=== PATIENT | female | born 1995 | race Caucasian/White ===

== ENCOUNTER 2024-01-16 03:45 | Inpatient (IN) ==
--- NOTE | 2024-01-16 04:01 | History & Physical Report ---
Date of Service January 16, 2024 Assessment & Plan (1) Delayed delivery after SROM (spontaneous rupture of membranes): Present on Admission?: Yes (2) Normal labor: Present on Admission?: Yes (3) LGA (large for gestational age) fetus affecting mother, antepartum: Present on Admission?: Yes Plan Admit to L and D Regular diet x 2 then NPO/IV Fluids labs pain meds including epidural as the pt desires Pitocin as needed to augment labor Admission and Anticipated Discharge Date Admission Date: January 16, 2024 History of Present Illness Chief Complaint: pt 28 yr old IUP at 38 weeks 6 days came in c/o leaking of fluid per vagina and uterine contractions. Denies vaginal bleeding . Reports good movement . Primary Care Provider: NO PCP Past Med/Surg History Problem List (Updated 01/16/24 @ 03:59 by Crystal Jacobs MD) LGA (large for gestational age) fetus affecting mother, antepartum Normal labor Delayed delivery after SROM (spontaneous rupture of membranes) Review of Systems Review of Systems: All systems reviewed & are unremarkable except as noted in HPI & below Constitutional: as per Subjective / HPI Respiratory: as per Subjective / HPI Cardiovascular: as per Subjective / HPI Gastrointestinal: as per Subjective / HPI Physical Exam Constitutional: WD/WN, vitals as above Respiratory: normal respiratory effort, lungs clear to auscultation Cardiovascular: RRR, no murmur, no edema Gastrointestinal (Abdomen): normal bowel sounds, soft, nontender, no hepatosplenomegaly Genitourinary: no vaginal lesions, no adnexal mass OB Exam Abdomen: + fundal height (41), + heart tones (140s, Good variability, positive accelerations ) and + vertex Manual OB Exam: + cervical dilation 2 cm, + cervical effacement 80%, + station -1 and + amniotic fluid clear OB Exam Monitor Tracing: + external FHT monitor used and + category I
--- OUTSIDE RECORDS SUMMARY | 2024-01-16 04:19 | External Medical Summary | Summary of Care ---
Author Name Unknown Organization [facility] Address [address] [place] [address] Phone [phone] Care Team Providers Care First Officer Name Role Phone Austin Margo Shari KELLEY Primary Care Provider [phone] Reason for Visit * Reason Comments Return Visit Encounter Details Date Type Department Care Team (Late st Contact Info) Description 01/05/2024 7:45 AM EDT Office Visit Gynecology/Obstetric s [facility] [address] [place] [id number] Twila Mclean PA-C [address] [place] [phone] Supervision of normal first , antepartum*; Antepartum anemia complicating ; Diet controlled gestational diabetes mellitus (GDM) in third trimester; Excessive growth affecting management of in third trimester, single or unspecified fetus Allergies No known active allergiesdocumented as of this encounter (statuses as of 01/05/2024) Medications Medication Sig Dispensed Refills Start Date End Date Status ZyrTEC Allergy 10 MG Oral Capsule (Cetirizine HCl) Take 1 Capsule by mouth in the morning. Active 28-0.8 MG Oral Tablet Take by mouth. Active Omeprazole Magnesium 20 MG Oral Tablet Delayed Release (PriLOSEC OTC) Take 1 Tablet by mouth in the morning. Active Promethazine HCl 25 MG Oral Tablet (Phenergan)Indicati ons:Encounter for supervision of normal first in first trimester,Vomiting of Take 1 Tablet by mouth every 6 hours as needed for Nausea. 30 Tablet 1 06/17/2023 Active Additional Information Patient not taking.Reported on 10/13/2023 B-12 1000 MCG Oral Tablet Take by mouth. Active SkillBoostTouch Verio Flex System w/Device Kit Use to test blood sugars 4 times daily (fasting, 1 hour after breakfast, lunch, and dinner) 1 Kit 11/07/2023 Active OneTouch Verio In Vitro Strip (Glucose Blood) Use to test blood sugars 4 times daily (fasting, 1 hour after breakfast, lunch, and dinner) 125 Strip 6 11/07/2023 Active SkillBoostTouch Delica Lancets 30G Use to test blood sugars 4 times daily (fasting, 1 hour after breakfast, lunch, and dinner) 200 Each 6 11/07/2023 Active documented as of this encounter (statuses as of 01/05/2024) Active Problems Problem Noted Date Diagnosed Date 36 weeks gestation of 01/01/2024 Excessive growth affec ting management of in third trimester 11/25/2023 Overview: Large AC noted at 99% with overall EFW of 2200 g at 91%. - 31 weeks Last Assessment & Plan: EFW projected to be ~4500g at [facility]. CONSIDERATIONS: Reviewed that weight greater than 90%ile is considered "large for gestational age" (LGA). Discussed associated risks (e.g., difficult labor progress or delivery, hemorrhage, shoulder dystocia). LGA may be related to constitutional factors (e.g., male gender, ethnicity), environmental factors (maternal diabetes/obesity/weight gain), or genetic conditions. Discussed the limitations of ultrasound in predicting weight, especially at later gestational ages. For a fetus estimated as greater than 4500 gm, this error may be as high as 33-44%. RECOMMENDATIONS: Recommend delivery without trial of labor for estimated weight greater than 5000 gm (in the non-diabetic woman) OR greater than 4500 gm (in the diabetic woman). Concern for macrosomia/LGA is NOT an indication for induction of labor per ACOG, however, the results of the ARRIVE trial have suggested it may be beneficial. The patient should discuss further management and delivery plan with her primary OB provider. Could consider IOL at 39 weeks. Iron deficiency anemia 11/11/2023 Diet controlled gestational diabetes mellitus (GDM) in third trimester 11/07/2023 Overview: Gestational diabetes diagnosed at 29 weeks by abnormal 3 hour GTT. Nutrition consult scheduled 11/17. Lab Results Component Value Date/Time 50-G GESTATIONAL GLUCOSE, 1 HOUR - [facility] 155 (H) 11/03/2023 10:08 AM 100-G GESTATIONAL GLUCOSE, 1 HOUR - [facility] 188 (H) 11/07/2023 08:11 AM 100-G GESTATIONAL GLUCOSE, 2 HOUR - [facility] 179 (H) 11/07/2023 09:07 AM 100-G GESTATIONAL GLUCOSE, 3 HOUR - [facility] 169 (H) 11/07/2023 10:06 AM 100-G GESTATIONAL GLUCOSE, FASTING - [facility] 85 11/07/2023 07:06 AM She has not tested yet today (11/10). 11/11/23: MFM [facility]T consult complete. Enrolled in Current [facility]. Instructions provided to report blood sugars each week for MFM review. 11/18/2023-RPM-3 of 6 elevated post prandial dinner values. Advised to watch diet. Will review again next week, and if persists, will schedule for follow up [facility]T with maternal medicine nurse practitioner. 11/24/[id number]-AHK-vzmtmio blood sugars within normal limits. 2 of 6 elevated post prandial breakfast & lunch readings and 2 of 4 elevated post prandial dinner. Advised to watch diet and keep meal log to try and identify if dietary related. Will review again next week. 12/01/[id number]-hhczjka stable (rare elevations mostly due to dietary choices (wings, fries, cereal). 12/08/[id number]-ITE-dkenumx stable (< 50% elevated) 12/15/20231306-AUZ-oclcqhx stable (< 50% elevated) 12/22/23: RPM reviewed; Stable 12/29/23: RPM reviewed; Stable overall (rare PP elevation) Last Assessment & Plan: Working with AD[facility]T. Antepartum anemia complicating 024 Overview: Blood management referral placed Last Assessment & Plan: CONSIDERATIONS: Severe maternal anemia (hemoglobin levels below 6 to 7 g/dl) is associated with oligohydramnios, cerebral vasodilation, delivery, miscarriage, growth restriction, nonreassuring heart rate patterns, and stillbirth. There is also an increased risk for maternal . RECOMMENDATIONS: If hemoglobin is below 11 g/dl during first and third trimesters or less than10.5 g/dL in 2nd trimester, we recommend anemia studies to assess serum ferritin, iron, iron binding capacity, transferritin saturation, and hemoglobin electrophoresis. If iron-deficiency anemia is confirmed, then we recommend iron supplementation with oral (preferred) or parenteral therapy (if recommended by blood conservation program after oral therapy has failed) as indicated to keep hemoglobin level above 11 g/dl during . Oral iron should be taken with orange juice. If anemia studies do not reflect iron deficiency anemia we recommend checking TSH, B12 and folate levels and referral to a business services assistant. If hemoglobin levels are below 8 g/dl, we recommend Maternal Medicine ultrasound for growth every 4 weeks after 24 weeks. Consider a blood transfusion if hemoglobin levels fall below 6 g/dL. ([employer] Practice Bulletin Number 95, September,). Consider Venofer transfusions if patient labs supportive of iron deficiency anemia with dosing of 300 mg IV weekly x 3 weeks Supervision of normal first , antepartu m 06/17/2023 Last Assessment & Plan: Low risk NIPT appreciated. Candidiasis 03/30/2021 Anxiety disorder 03/30/2021 Hematuria 01/29/2013 Overview: ICD-10 update of inactive term Estimated Date of Delivery Comme nts Yes 01/23/2024 Based on last me nstrual period of 04/18/2023 (Exact Date) documented as of this encounter (statuses as of 01/05/2024) Immunizations Name Administration Dates Next Due COVID-19 mRNA, LNP-s, No Pre serve, 2-Dose Series (Primary Data) 07/28/2020,07/07/2020 DTaP Dipth/Tet/Acell Pertussis (Infanrix), Peds 07/21/2000,01/03/1997,01/05/1996,11/03,1995 HPV Vaccine, 4-Valent 2011,02/27/2011,12/15 Haemophilius B (HIB), unspecified 01/10/1997 Hepatitis A, Ped/Adol., 18 y ear and below, 2-Dose 06/23/2008,03/03/2007 Hepatitis B, 0-19 yrs 01/05/1996,1995,06/16 IPV - Polio Virus Vaccine (Inact) 07/21/2000 Influenza Vaccine, Live, Int ranasal, Trivalent (Flumist) 01/08/2013,12/24/2010,12/20/2009 MMR - Measles/Mumps/Rubella Vaccine 07/08/2006,0 10/09/1999 Meningococcal MCV4P Conjugat e Vaccine (Menactra) 01/08/2013,03/03/2007 OPV - Polio Virus Vaccine (Oral) 01/05/1996,10/16,1995 RSV Vac., Bivalent, Perfusio n F, Pf,0.5 Ml (Abrysvo) 12/08/2023 Seasonal Influenza Virus Vac cine, Unspecified Formulation 01/08/2013 TDAP (age 10 and older)(Boostrix) 11/07/2023 TDAP, Age 7 and older, IM (Adacel) 11/05/2006 Varicella Vaccine (Chicken Pox) 03/03/2007,07/08 documented as of this encounter Social History Tobacco Use Types Packs/Day Years Used Date Smoking Tobacco: Never Smokeless Tobacco: Never Alcohol Use Standard Drinks/Week Comments No 0 (1 standard drink = 0.6 oz pur e alcohol) Hunger Vital Sign Answer Date Recorded Within the past 12 months, y ou worried that your food would run out before you got the money to buy more. Never true 09/12/19 24 Within the past 12 months, t he food you bought just didn't last and you didn't have money to get more. Never true 09/12/2023 [place] Depression Scale Answer Date Recorded [place] Depression Scale Total 4 12/08/2023 The thought of harming myself has occurred to me . Never 12/08/2023 Childcare Answer Date Recorded Do you feel overwhelmed with taking care of a child, family member or friend? No 09/12/2023 Does your family need help f inding childcare? (Household - for ages 0-17 years) Not on file 09/12/2023 Clothing Answer Date Recorded Have you been unable to get clothing when it was really needed? No 09/12/2023 Is your family able to get c lothes or diapers when needed? (Household - for ages 0-17 years) Not on file 09/12/2023 Personal Safety Answer Date Recorded Do you feel unsafe or have concerns for your saf ety? No 09/12/2023 Do you have concerns for you r family's safety? (Household - for ages 0-17 years) Not on file 09/12/2023 Utilities Answer Date Recorded Do you have trouble paying y our heating, water, or electric bill? No 09/12/2023 Is your family able to pay t he heat, water, or electric bill? (Household - for ages 0-17 years) Not on file 09/12/2023 Does your family have access to good internet? (Household - for ages 0-17 years) Not on file 09/12/2023 Employment Status Answer Date Recorded Are you unemployed or without regular income? No 09/12/2023 Does the household have a re lar source of income? (Household - for ages 0-17 years) Not on file 09/12/2023 Social Connections Answer Date Recorded How often do you feel lonely or isolated from th ose around you? Rarely 09/12/2023 Financial Resource Strain Answer Date R ecorded Do you have any trouble payi ng for your medications, or do you think you might in the future? No 09/12/2023 Does your family have troubl e paying for medicine? (Household - for ages 0-17 years) Not on file 09/12/2023 Transportation Needs Answer Date Record ed READ ONLY Do you have troubl e getting a ride to medical visits or work? Never True 09/12/2023 Does your family have a hard time getting a ride to doctors visits? (Household - for ages 0-17 years) Not on file 09/12/2023 Has lack of transportation k ept you from medical appointments, meetings, work, or from getting things needed for daily living? Check all that apply. No 09/12/2023 Do you (or your family) have trouble finding or paying for a ride (transportation)? (Household - for ages 0-17 years) Not on file 09/12/2023 Housing Stability Answer Date Recorded Do you currently live in a s helter or have no steady place to sleep at night? No 09/12/2023 READ ONLY Do you think you a re at risk of becoming homeless? No 09/12/2023 Does your family worry about paying for your home or becoming homeless? (Household - for ages 0-17 years) Not on file 0 09/12/2023 Are you homeless or worried that you might be in the future? No 09/12/2023 Are you (or your family) macho eless or worried that you might be in the future? (Household - for ages 0-17 years) Not on file Food Insecurity Answer Date Recorded Do you need food for this week? No 09/12/2023 Are you able to get enough f ood for your family? (Household - for ages 0-17 years) Not on file 09/12/2023 Does your family need food t his week? (Household - for ages 0-17 years) Not on file 09/12/2023 Do you always have enough fo od for your family? (Household - for ages 0-17 years) Not on file 09/12/2023 Estimated Date of Delivery Comme nts Yes 01/23/2024 Based on last me nstrual period of 04/18/2023 (Exact Date) Sex and Gender Information Value Date Recorded Sex Assigned at Female 06/02/2023 9:50 AM EDT Gender Identity Female 06/02/2023 9:50 AM EDT Sexual Orientation Straight 06/02/2023 9: 50 AM EDT Job Start Date Occupation Industry Not on file Not on file Not on file documented as of this encounter Last Filed Vital Signs Vital Sign Reading Time Taken Comments Blood Pressure 104/66 01/05/2024 7:38 AM EDT Pulse - - Temperature - - Respiratory Rate - - Oxygen Saturation - - Inhaled Oxygen Concentration - - Weight 63.5 kg (140 lb) 01/05/2024 7:38 AM EDT Height - - Body Mass Index 25.61 12/30/2023 8:43 AM EDT documented in this encounter Progress Notes * Twila Mclean PA-C - 01/05/2024 8:00 AM EDT 37w3d Had last MFM growth 01/01/2024. Baby continues with LGA. Per note: Large AC noted at >99% with overall EFW of 3853 g at 98% and states EFW projected to be ~4500g at [facility]. Pt reports MFM had discussed with her EIOL at 39 weeks. She would like to schedule this. Pt states would really like to try for vaginal delivery, but understands if ultimately C/S needed. Hopes earlier induction may improve chances of vaginal delivery d/t LGA. FMLA forms given back there her today. EIOL scheduled at [facility] for 01/16/2024. Pt aware that because EIOL that date/times may change. Given instructions. Denies VB, LOF, contractions. Baby is active. RTC in 1 week Twila Mclean PA-C * Radha Duarte LPN - 01/05/2024 7:38 AM EDT 37w3d Denies vaginal bleeding/rom + movement Discuss 39 week IOL- LGA documented in this encounter Plan of Treatment Upcoming Encounters Date Type Department Care Team (Late st Contact Info) Description 01/12/2024 4:30 PM EDT Office Visit Gynecology/Obstetrics [facility] [address] [place] [phone] Twila Mclean PA-C [address] [place] [phone] 01/20/2024 8:00 AM EST Office Visit Gynecology/Obstetrics [facility] [address] [place] [address] Awilda Retana CRNP [address] [place] [phone] 01/26/2024 7:45 AM EST Office Visit Gynecology/Obstetrics Josefa [facility] [address] [place] [phone] Twila Mclean PA-C [address] [place] [phone] Health Maintenance Due Date Last Done Comments Depression Screening 04/01/2015 04/01/2014 COVID-19 Vaccine ( season) 2023 07/28/2020, 07/07/2020 Influenza Vaccine (FLU shot) (#1) 2023 01/08/2013, 01/08/2013, 12/24/2010, Additional history exists Pap Smear 06/16/2026 06/17/2023, 03/17, 08/19/2018 DTap/Tdap Vaccines (8 - Td or Tdap) 11/06/2033 11/07/2023, 11/05/2006, 07/21/2000, Additional history exists Hepatitis B Vaccine Completed 01/05/1996, 1995, 1995 HPV (Gardasil) Vaccine Completed 2, 02/27/2011, 12/24/2010 MENINGOCOCCAL (MENACTRA/MENVEO) Completed 01/08/2013, 03/03/2007 Gonorrhea / Chlamydia Screen Discontinued 06/17/2023, 03/30/2021, 08/19/2018, Additional history exists Pneumococcal Vaccine: Pediatrics (0 to 5 Years) and At-Risk Patients (6 to 64 Years) Aged Out No longer eligible based on patient's age to complete this topic documented as of this encounter Goals Goal Patient Goal Type Associated Problems Recent Progress Patient-Stated? Author Reminders Care Plan OB Reminders No Mychart, Provider documented as of this encounter Medical Devices Not on filedocumented as of this encounter Visit Diagnoses Diagnosis Supervision of normal first , antepartum- Primary Antepartum anemia complicating Anemia, antepartum Diet controlled gestational diabetes mellitus (GDM) in third trimester Excessive growth affecting management of in third trimester, single or unspecified fetus documented in this encounter Additional Health Concerns Active Problems Noted Date Diagnosed Date OB Reminders 11/03/2023 documented as of this encounter Care Teams First Officer Relationship Specialty Start Date End Date Margo Avila DO [address] [facility] [address] [place] [address] PCP - General Pediatrics 04/04/15 documented as of this encounter
--- OUTSIDE RECORDS SUMMARY | 2024-01-16 04:19 | External Medical Summary | Summary of Care ---
Author Name Unknown Organization [facility] Address [address] [place] [address] Phone [phone] Care Team Providers Care Detonator Assembler Name Role Phone Avila Margo Shari KELLEY Primary Care Provider [phone] Encounter Details Date Type Department Care Team (Late st Contact Info) Description 01/01/2024 9:30 AM EDT Office Visit [employer] Delivery Driver Obstetrics Maternal Medicine, [facility] [address] [facility] [place] [address] Monse Johnson DO [address] [place] [address] Excessive growth affecting management of in third trimester, single or unspecified fetus*; Diet controlled gestational diabetes mellitus (GDM) in third trimester Allergies No known active allergiesdocumented as of this encounter (statuses as of 01/01/2024) Medications Medication Sig Dispensed Refills Start Date [...] MCG Oral Tablet Take by mouth. Active Spiral GeneticsTouch Verio Flex System w/Device Kit Use to test blood sugars 4 times daily (fasting, 1 hour after breakfast, lunch, and dinner) 1 Kit 11/07/2023 Active OneTouch Verio In Vitro Strip (Glucose Blood) Use to test blood sugars 4 times daily (fasting, 1 hour after breakfast, lunch, and dinner) 125 Strip 6 11/07/2023 Active Spiral GeneticsTouch Delica Lancets 30G Use to test blood sugars 4 times daily (fasting, 1 hour after breakfast, lunch, and dinner) 200 Each 6 11/07/2023 Active documented as of this encounter (statuses as of 01/01/2024) Active Problems Problem Noted Date Diagnosed Date 36 weeks gestation of 01/01/2024 Excessive growth affec ting management of in third trimester 11/25/2023 Overview: Large AC noted at 99% with overall EFW of 2200 g at 91%. - 31 weeks Last Assessment & Plan: EFW projected to be ~4500g at [facility]. CONSIDERATIONS: Reviewed that weight greater than 90%ile [...] MFM ADAPT consult complete. Enrolled in Current Health. Instructions provided to report blood sugars each week for MFM review. 11/18/2023-RPM-3 of 6 elevated post prandial dinner values. Advised to watch diet. Will review again next week, and if persists, will schedule for follow up ADAPT with maternal medicine nurse practitioner. 11/24/20239673-OMS-axhilvz blood sugars within normal limits. 2 of 6 elevated post prandial breakfast & lunch readings and 2 of 4 elevated post prandial dinner. Advised to watch diet and keep meal log to try and identify if dietary related. Will review again next week. 12/01/20233243-BCG-yurudsr stable (rare elevations mostly due to dietary choices (wings, fries, cereal). 12/08/20236274-XLD-vkrizjb stable (< 50% elevated) 12/15/20233765-MGP-kcfqggg stable (< 50% elevated) 12/22/23: RPM reviewed; [...] and folate levels and referral to a slat basket maker helper. If hemoglobin levels are below 8 g/dl, we recommend Maternal Medicine ultrasound for growth every 4 weeks after 24 weeks. Consider a blood transfusion if hemoglobin levels fall below 6 g/dL. ([employer] and Direct Casting Operator Practice Bulletin Number 95, September,). Consider Venofer [...] as of this encounter (statuses as of 01/01/2024) Immunizations Name Administration Dates Next Due COVID-19 mRNA, LNP-s, No Pre serve, 2-Dose Series ([employer]) 07/28/2020,07/07/2020 DTaP Dipth/Tet/Acell Pertussis (Infanrix), Peds 07/21/2000,01/03/1997,01/05/1996,11/03,1995 [...] money to get more. Never true 09/12/2023 Charleston Depression Scale Answer Date Recorded Charleston Depression Scale Total 4 12/08/2023 The thought [...] on file documented as of this encounter Progress Notes * Monse Johnson, DO - 01/01/2024 11:03 AM EDT MATERNAL MEDICINE VISIT Patient location: CLINIC. I was not in a hospital or clinic location. After connecting through televideo, patient was verified with two unique identifiers. 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 My office door was closed. No one else was in the room with me. Patient acknowledged consent and understanding of privacy and security of the Telemedicine visit, and gave permission to have atelemedicine presenter stay in the room in order to assist with the history and to conduct the examas needed. I informed the patient that I have reviewed their record in [facility] and presented the opportunity for them to ask any questions regarding the visit today. The patient agreed to participate. Julieta Cordon presented today at 36w6d for an ultrasound and follow-up of her high risk . She was seen for the following indications: Problem List Items Addressed This Visit Diet controlled gestational diabetes mellitus (GDM) in third trimester Excessive growth affecting management of in third trimester - Primary EFW projected to be ~4500g at [facility]. CONSIDERATIONS: Reviewed that weight greater than 90%ile is considered "large for gestational age" (LGA). Discussed associated risks (e.g., difficult labor progress or delivery, hemorrhage, shoulderdystocia). LGA may be related to constitutional factors (e.g., male gender, ethnicity), environmental factors (maternal diabetes/obesity/weight gain), or genetic conditions. Discussed the limitations of ultrasound in predicting weight, especially at later gestationalages. For a fetus estimated as greater than [...] provider. Could consider IOL at 39 weeks. We reviewed today's ultrasound findingsPatient presented for growth assessment at 36w 6d. Large AC noted at >99% with overall EFW of 3853 g at 98%. SILVA 17.3 cm. Cephalic presentation. . (For full details, please refer to ultrasound report provided separately). Ms. Cordon's questions were answered to her satisfaction. She was advised to contact our officeor her OB provider for any additional questions regarding her . RECOMMENDATIONS: Follow up with MFM for ultrasound as clinically indicated. Thank you for allowing us to participate in the care of this patient. Please call with any questions. I spent a total of 22 minutes on the date of service in preparation, delivery, and documentation ofthe care provided to Julieta Cordon excluding any time spent in the performance of separately billed services. Monse Johnson DO 01/01/2024 11:04 AM documented in this encounter Miscellaneous Notes * Assessment & Plan Note - Monse Johnson DO - 01/01/2024 11:03 AM EDT Associated Problem(s): Excessive growth affecting management of in third trimester EFW projected to be ~4500g at [facility]. CONSIDERATIONS: Reviewed that weight greater than 90%ile is considered "large for gestational age" (LGA). Discussed associated risks (e.g., difficult labor progress or delivery, hemorrhage, shoulderdystocia). LGA may be related to constitutional factors (e.g., male gender, ethnicity), environmental factors (maternal diabetes/obesity/weight gain), or genetic conditions. Discussed the limitations of ultrasound in predicting weight, especially at later gestationalages. For a fetus estimated as greater than [...] provider. Could consider IOL at 39 weeks. documented in this encounter Plan of Treatment Upcoming Encounters Date Type Department Care Team (Late st Contact Info) Description 01/05/2024 7:45 AM EDT Office Visit Gynecology/Obstetrics [facility] [address] [place] [address] Twila Mclean PA-C [address] [place] [address] 01/12/2024 4:30 PM EDT Office Visit Gynecology/Obstetrics [facility] [address] [place] [address] Twila Mclean PA-C [address] [place] [address] 01/20/2024 8:00 AM EST Office Visit Gynecology/Obstetrics [facility] [address] [place] [address] Awilda Retana CRNP [address] [place] [address] 01/26/2024 7:45 AM EST Office Visit Gynecology/Obstetrics [facility] [address] [place] [address] Twila Mclean PA-C [address] [place] [address] Health Maintenance Due Date Last Done Comments Depression Screening 04/01/2015 04/01/2014 COVID-19 Vaccine (2023- season) 2023 07/28/2020, 07/07/2020 Influenza Vaccine (FLU [...] Author Reminders Care Plan OB Reminders No [place], Provider documented as of this encounter Medical Devices Not on filedocumented as of this encounter Visit Diagnoses Diagnosis Excessive growth affecting management of in third trimester, single or unspecified fetus- Primary Diet controlled gestational diabetes mellitus (GDM) in third trimester documented in this encounter Additional Health Concerns Active Problems Noted Date Diagnosed Date OB Reminders 11/03/2023 documented as of this encounter Care Teams Detonator Assembler Relationship Specialty Start Date End Date Margo Avila DO [address] [facility] [address] [facility] [facility] [place] [address] PCP - General Pediatrics 04/04/15 documented as of this encounter
--- OUTSIDE RECORDS SUMMARY | 2024-01-16 04:19 | External Medical Summary | Summary of Care ---
Author Name Unknown Organization [facility] Address [address] [facility] [place] [address] Phone [phone] Care Team Providers Care Molded Goods Embossing Press Operator Name Role Phone Austin Margo Shari KELLEY Primary Care Provider [phone] Reason for Visit * Reason Comments Return Visit Encounter Details Date Type Department Care Team (Late st Contact Info) Description 01/12/2024 4:30 PM EDT Office Visit Gynecology/Obstetric s [facility] [address] [place] [address] Twila Mclean PA-C [address] [place] [address] Supervision of normal first , antepartum*; Antepartum anemia complicating ; Diet controlled gestational diabetes mellitus (GDM) in third trimester; Excessive growth affecting management of in third trimester, single or unspecified fetus Allergies No known active allergiesdocumented as of this encounter (statuses as of 01/12/2024) Medications Medication Sig Dispensed Refills Start Date [...] MCG Oral Tablet Take by mouth. Active Say-HeyTouch Verio Flex System w/Device Kit Use to test blood sugars 4 times daily (fasting, 1 hour after breakfast, lunch, and dinner) 1 Kit 11/07/2023 Active Say-HeyTouch Verio In Vitro Strip (Glucose Blood) Use to test blood sugars 4 times daily (fasting, 1 hour after breakfast, lunch, and dinner) 125 Strip 6 11/07/2023 Active Say-HeyTouch Delica Lancets 30G Use to test blood sugars 4 times daily (fasting, 1 hour after breakfast, lunch, and dinner) 200 Each 6 11/07/2023 Active documented as of this encounter (statuses as of 01/12/2024) Active Problems Problem Noted Date Diagnosed Date 36 weeks gestation of 01/01/2024 Excessive growth affec ting management of in third trimester 11/25/2023 Overview: Last growth with M 01/02/2024: Large AC noted at >99% with overall EFW of 3853 g at 98%. SILVA 17.3 cm. Cephalic presentation. . Per [facility] note: Excessive growth affecting management of in third trimester - Primary EFW projected to be ~4500g at [facility]. CONSIDERATIONS: Reviewed that weight greater than [...] provider. Could consider IOL at 39 weeks. Last Assessment & Plan: EFW projected to be ~4500g at [facility]. CONSIDERATIONS: Reviewed that weight greater than [...] up ADAPT with maternal medicine nurse practitioner. 11/24/20239404-ZXK-mrjscet blood sugars within normal limits. 2 of 6 elevated post prandial breakfast & lunch readings and 2 of 4 elevated post prandial dinner. Advised to watch diet and keep meal log to try and identify if dietary related. Will review again next week. 12/01/20232432-OEQ-jpnpcmd stable (rare elevations mostly due to dietary choices (wings, fries, cereal). 12/08/20234797-MGZ-pcahnad stable (< 50% elevated) 12/15/20239696-PLW-dqooulf stable (< 50% elevated) 12/22/23: RPM reviewed; Stable 12/29/23: RPM reviewed; Stable overall (rare PP elevation) 01/05/20241625-GWK-ylpuxzb stable. 3 of 6 elevated post prandial lunch values (140-140-141). Advised to watch diet. Will review again next week. 01/12/20248975-VCF-avbausy stable. Some missed readings. Last Assessment & Plan: Working with ADAPT. [...] and folate levels and referral to a net coordinator. If hemoglobin levels are below 8 g/dl, we recommend Maternal Medicine ultrasound for growth every 4 weeks after 24 weeks. Consider a blood transfusion if hemoglobin levels fall below 6 g/dL. ([employer] and Sales Assistant Entertainment And Media Practice Bulletin Number 95, September,). Consider Venofer [...] as of this encounter (statuses as of 01/12/2024) Immunizations Name Administration Dates Next Due COVID-19 mRNA, LNP-s, No Pre serve, 2-Dose Series (Pfizer) 07/28/2020,07/07/2020 DTaP Dipth/Tet/Acell Pertussis (Infanrix), Peds 07/21/2000,01/03/1997,01/05/1996,11/03,1995 [...] money to get more. Never true 09/12/2023 Clemons Depression Scale Answer Date Recorded Clemons Depression Scale Total 4 12/08/2023 The thought [...] Sign Reading Time Taken Comments Blood Pressure 98/66 01/12/2024 4:14 PM EDT Pulse - - Temperature - - Respiratory Rate - - Oxygen Saturation - - Inhaled Oxygen Concentration - - Weight 65.8 kg (145 lb) 01/12/2024 4:14 PM EDT Height 157.5 cm (5' 2") 01/12/2024 4:14 PM EDT Body Mass Index 26.52 01/12/2024 4:14 PM EDT documented in this encounter Progress Notes * Twila Mclean PA-C - 01/12/2024 4:28 PM EDT 38w3d Denies LOF, VB, contractions. Baby is active. EIOL scheduled 01/15, has instructions. Aware timing could change pending hospital schedule. Labor precautions reviewed. RTC for visits Twila Mclean PA-C documented in this encounter Nursing Notes * ConnorSvetlana Cabrera LPN - 01/12/2024 4:23 PM EDT 38w3d Denies concerns documented in this encounter Plan of Treatment Upcoming Encounters Date Type Department Care Team (Late st Contact Info) Description 01/20/2024 8:00 AM EST Office Visit Gynecology/Obstetrics [facility] [address] [place] [address] Awilda Retana CRNP [address] [place] [address] 01/26/2024 7:45 AM EST Office Visit Gynecology/Obstetrics [facility] [address] [place] [address] Twila Mclean PA-C [address] [place] [address] Health Maintenance Due Date Last Done Comments [...] documented as of this encounter Care Teams Molded Goods Embossing Press Operator Relationship Specialty Start Date End Date Margo Avila DO [address] [facility] [address] [place] [address] PCP - General Pediatrics 04/04/15 documented as of this encounter
--- OUTSIDE RECORDS SUMMARY | 2024-01-16 04:19 | External Medical Summary | Summary of Care ---
Author Name Unknown Organization [facility] Address [address] [place] [address] Phone [phone] Care Team Providers Care Import Export Coordinator Name Role Phone Avila Margo Shari KELLEY Primary Care Provider Encounter Details Date Type Department Care Team (Late st Contact Info) Description 01/01/2024 9:30 AM EDT Office Visit Hop Picker Obstetrics Maternal Medicine, [facility] [address] [facility] [place] [address] Monse Johnson DO [address] [place] [address] Excessive growth affecting management of in third trimester, single or unspecified fetus*; Diet controlled gestational diabetes mellitus (GDM) in third trimester Allergies No known active allergiesdocumented as of this encounter (statuses as of 01/02/2024) Medications Medication Sig Dispensed Refills Start Date [...] MCG Oral Tablet Take by mouth. Active mylearnadfriendTouch Verio Flex System w/Device Kit Use to test blood sugars 4 times daily (fasting, 1 hour after breakfast, lunch, and dinner) 1 Kit 11/07/2023 Active OneTouch Verio In Vitro Strip (Glucose Blood) Use to test blood sugars 4 times daily (fasting, 1 hour after breakfast, lunch, and dinner) 125 Strip 6 11/07/2023 Active mylearnadfriendTouch Delica Lancets 30G Use to test blood sugars 4 times daily (fasting, 1 hour after breakfast, lunch, and dinner) 200 Each 6 11/07/2023 Active documented as of this encounter (statuses as of 01/02/2024) Active Problems Problem Noted Date Diagnosed Date 36 weeks gestation of 01/01/2024 Excessive growth affec ting management of in third trimester 11/25/2023 Overview: Large AC noted at 99% with overall EFW of 2200 g at 91%. - 31 weeks Last Assessment & Plan: EFW projected to be ~4500g at [facility]. CONSIDERATIONS: Reviewed that weight greater [...] up ADAPT with maternal medicine nurse practitioner. 11/24/20239609-HJZ-riygkmu blood sugars within normal limits. 2 of 6 elevated post prandial breakfast & lunch readings and 2 of 4 elevated post prandial dinner. Advised to watch diet and keep meal log to try and identify if dietary related. Will review again next week. 12/01/20238261-WAX-jnjqkmv stable (rare elevations mostly due to dietary choices (wings, fries, cereal). 12/08/20235193-UPI-eaobvfx stable (< 50% elevated) 12/15/20239847-BKE-qkqhwjb stable (< 50% elevated) 12/22/23: RPM reviewed; [...] and folate levels and referral to a ux design lead. If hemoglobin levels are below 8 g/dl, we recommend Maternal Medicine ultrasound for growth every 4 weeks after 24 weeks. Consider a blood transfusion if hemoglobin levels fall below 6 g/dL. ([employer]ians and Reference And Instruction Librarian Practice Bulletin Number 95, September,). Consider Venofer [...] as of this encounter (statuses as of 01/02/2024) Immunizations Name Administration Dates Next Due COVID-19 mRNA, LNP-s, No Pre serve, 2-Dose Series ([employer]) 07/28/2020,07/07/2020 DTaP Dipth/Tet/Acell Pertussis (Infanrix), Peds 07/21/2000,01/03/1997,01/05/1996,11/03,1995 [...] money to get more. Never true 09/12/2023 [place] Depression Scale Answer Date Recorded [place] Depression Scale Total 4 12/08/2023 The thought [...] two unique identifiers. Patient (or authorized legal digital sales representative) was then informed that this [...] that I have reviewed their record in [facility] and presented the opportunity for them to [...] trimester EFW projected to be ~4500g at [facility]. CONSIDERATIONS: Reviewed that weight greater than [...] 01/05/2024 7:45 AM EDT Office Visit Gynecology/Obstetrics [facility] [address] [place] [address] Twila Mclean PA-C [address] [place] [address] 01/12/2024 4:30 PM EDT Office Visit Gynecology/Obstetrics [facility] [address] [place] [address] Twila Mclean PA-C [address] [place] [address] 01/20/2024 8:00 AM EST Office Visit Gynecology/Obstetrics [facility] [address] [place] [address] Awilda Retana CRNP [address] [place] [address] 01/26/2024 7:45 AM EST Office Visit Gynecology/Obstetrics [facility] [address] [place] [address] Twila Mclean PA-C [address] [place] [address] Health Maintenance Due Date Last Done Comments [...] documented as of this encounter Care Teams Import Export Coordinator Relationship Specialty Start Date End Date Margo Avila DO [address] [facility] [address] [facility] [place] [address] PCP - General Pediatrics 04/04/15 documented as of this encounter
--- OUTSIDE RECORDS SUMMARY | 2024-01-16 04:20 | External Medical Summary ---
Author Name Unknown Address Unknown Organization K01:[facility] [address] [place] [address] Laboratory Report Ordering Provider Test Date Status CHAU KWOK 12/22/2023 07:04:03 Final Observation Date Value Abnormality Reference (Units ) Status Ferritin 12/22/2023 07:04:03 116 13-150 (ng /mL) Final Performing Location [facility] [address] [place] [address]
--- OUTSIDE RECORDS SUMMARY | 2024-01-16 04:20 | External Medical Summary | Summary of Care ---
Author Name Unknown Organization [facility] Address [address] [facility] [place] [address] Phone [phone] Care Team Providers Care Teacher Physically Impaired Name Role Phone Austin Margo Shari KELLEY Primary Care Provider [phone] Reason for Visit * Reason Comments Return Visit Encounter Details Date Type Department Care Team (Late st Contact Info) Description 12/22/2023 7:45 AM EDT Office Visit Gynecology/Obstetric s Nettlesparveen Barragan [address] [place] [address] Twila Mclean PA-C [address] [place] [address] Supervision of normal first , antepartum*; Antepartum anemia complicating ; Diet controlled gestational diabetes mellitus (GDM) in third trimester; Excessive growth affecting management of in third trimester, single or unspecified fetus Allergies No known active allergiesdocumented as of this encounter (statuses as of 12/22/2023) Medications Medication Sig Dispensed Refills Start Date [...] MCG Oral Tablet Take by mouth. Active Healthcare BluebookTouch Verio Flex System w/Device Kit Use to test blood sugars 4 times daily (fasting, 1 hour after breakfast, lunch, and dinner) 1 Kit 11/07/2023 Active OneTouch Verio In Vitro Strip (Glucose Blood) Use to test blood sugars 4 times daily (fasting, 1 hour after breakfast, lunch, and dinner) 125 Strip 6 11/07/2023 Active Healthcare BluebookTouch Delica Lancets 30G Use to test blood sugars 4 times daily (fasting, 1 hour after breakfast, lunch, and dinner) 200 Each 6 11/07/2023 Active documented as of this encounter (statuses as of 12/22/2023) Active Problems Problem Noted Date Diagnosed Date Excessive growth affec ting management of in third trimester 11/25/2023 Overview: Large AC noted at 99% with overall EFW of 2200 g at 91%. - 31 weeks Last Assessment & Plan: CONSIDERATIONS: Reviewed that weight greater than 90%ile [...] be as high as 33-44%. RECOMMENDATIONS: Recommend repeating ultrasound for growth at 38-39 weeks gestation. Recommend delivery without trial of labor for estimated weight greater than 5000 gm (in the non-diabetic woman) OR greater than 4500 gm (in the diabetic woman). Concern for macrosomia/LGA is NOT an indication for induction of labor. The patient should discuss further management and delivery plan with her primary OB provider. Iron deficiency anemia 11/11/2023 Diet controlled gestational [...] - [facility] 85 11/07/2023 07:06 AM She reports her home blood glucose as following: DATE Fasting 1 hr after Breakfast 1 hr after Lunch 1 hr after Dinner 11/10/23 80 119 131 X She has not tested yet today (11/10). 11/11/23: MFM ADAPT consult complete. Enrolled in Current Health. Instructions provided to report blood sugars each week for MFM review. 11/18/2023-RPM-3 of 6 elevated post prandial dinner values. Advised to watch diet. Will review again next week, and if persists, will schedule for follow up ADAPT with maternal medicine nurse practitioner. 11/24/20231092-NEX-kijmilz blood sugars within normal limits. 2 of 6 elevated post prandial breakfast & lunch readings and 2 of 4 elevated post prandial dinner. Advised to watch diet and keep meal log to try and identify if dietary related. Will review again next week. 12/01/20230460-NPA-dzstmln stable (rare elevations mostly due to dietary choices (wings, fries, cereal). 12/08/20238008-TJH-mqmqrdl stable (< 50% elevated) 12/15/20237489-KUQ-wfznsoq stable (< 50% elevated) Last Assessment & Plan: Working with ADAPT. [...] and folate levels and referral to a director hydrogen storage engineering. If hemoglobin levels are below 8 g/dl, we recommend Maternal Medicine ultrasound for growth every 4 weeks after 24 weeks. Consider a blood transfusion if hemoglobin levels fall below 6 g/dL. ([employer] Oral Hygienist Practice Bulletin Number 95, September,). Consider Venofer [...] as of this encounter (statuses as of 12/22/2023) Immunizations Name Administration Dates Next Due COVID-19 mRNA, LNP-s, No Pre serve, 2-Dose Series (EzFlop - A First of Its Kind Flip Flop) 07/28/2020,07/07/2020 DTaP Dipth/Tet/Acell Pertussis (Infanrix), Peds 07/21/2000,01/03/1997,01/05/1996,11/03,1995 [...] money to get more. Never true 09/12/2023 [place] Depression Scale Answer Date Recorded [place] Depression Scale Total 4 12/08/2023 The thought [...] Sign Reading Time Taken Comments Blood Pressure 100/62 12/22/2023 7:46 AM EDT Pulse - - Temperature - - Respiratory Rate - - Oxygen Saturation - - Inhaled Oxygen Concentration - - Weight 64 kg (141 lb 3.2 oz) 12/22/2023 7:46 AM EDT Height - - Body Mass Index 25.83 12/08/2023 7:45 AM EDT documented in this encounter Progress Notes * Twila Mclean PA-C - 12/22/2023 7:58 AM EDT 35w3d GDM remains diet controlled. She has been compliant in reporting to [employer] team. Denies VB, LOF, contractions. Baby is active. Reviewed GBS next visit. RTC in 1 week Twila Mclean PA-C * Daniella Berg CMA - 12/22/2023 7:46 AM EDT 35w3d Denies any concerns documented in this encounter Plan of Treatment Upcoming Encounters Date Type Department Care Team (Late st Contact Info) Description 12/23/2023 9:30 AM EDT Pharmacy Pharmacy, [place] [address] [place] [address] Clinic, [place] [address] [place] [address] 12/30/2023 9:00 AM EDT Office Visit Gynecology/Obstetrics Josefa Barragan [address] [facility] [place] [address] Awilda Retana CRNP [address] [facility] [place] [address] 01/01/2024 9:30 AM EDT Office Visit Lead Bi Developer Obstetrics Maternal Medicine, Nazario Barragan [address] [facility] [place] [address] Monse Johnson DO [address] [place] [address] 01/01/2024 9:30 AM EDT Imaging Maternal Medicine Imaging, Nazario Barragan [address] [place] [phone] 01/05/2024 7:45 AM EDT Office Visit Gynecology/Obstetrics Josefa Barragan [address] [place] [address] [phone] Twila Mclean PA-C [address] [place] [address] 01/12/2024 4:30 PM EDT Office Visit Gynecology/Obstetrics Josefa Barragan [address] [place] [address] Twila Mclean PA-C [address] [place] [address] Health Maintenance Due Date Last Done Comments [...] documented as of this encounter Care Teams Teacher Physically Impaired Relationship Specialty Start Date End Date Margo Avila DO [address] [facility] [address] [place] [address] PCP - General Pediatrics 04/04/15 documented as of this encounter
--- OUTSIDE RECORDS SUMMARY | 2024-01-16 04:20 | External Medical Summary ---
Author Name Unknown Address Unknown Organization K01:[facility] [place] [address] [facility] [address] [facility] [address] Laboratory Report Ordering Provider Test Date Status CHAU KWOK 12/22/2023 07:04:03 Final Observation Date Value Abnormality Reference (Units ) Status WBC, Total 12/22/2023 07:04:03 8.71 4.00-10.80 (K/uL) Final RBC 12/22/2023 07:04:03 3.97 3.85-5.15 (M/uL) Final Hemoglobin 12/22/2023 07:04:03 12.0 12.0-15.3 (g/dL) Final HCT 12/22/2023 07:04:03 37.4 36.0-45.2 (%) Final MCV 12/22/2023 07:04:03 94.2 81.5-97.5 (fL) Final MCH 12/22/2023 07:04:03 30.2 27.0-34.0 (pg) Final MCHC 12/22/2023 07:04:03 32.1 32.0-36.0 (g/dL) Final RDW 12/22/2023 07:04:03 16.1 11.5-15.5 (%) Final Platelets 12/22/2023 07:04:03 115 Below low normal 140-400 (K/uL) Final MPV 12/22/2023 07:04:03 12.7 6.6-11.1 (fL) Final Nucleated erythrocytes/100 leukocytes [Ratio] in Blood by Automated count 12/22/2023 07:04:03 0 <=0 (/100 WBCs) Final Performing Location [facility] [place] [address] [place] [address]
--- OUTSIDE RECORDS SUMMARY | 2024-01-16 04:20 | External Medical Summary | Summary of Care ---
Author Name Unknown Organization [facility] Address [address] [place] [address] Phone [phone] Care Team Providers Care Liner Inserter Name Role Phone Margo Avila DO Primary Care Provider [phone] Reason for Visit * Reason Onset Date Comments Returning Call 12/24/2023 Encounter Details Date Type Department Care Team (Late st Contact Info) Description 12/24/2023 Telephone Centralized Clinical Pharmacy Services, Karlie Schmidt [address] [place] [address] [place] [address] Clinic, Anemia [address] [place] [address] Returning Call Allergies No known active allergiesdocumented as of this encounter (statuses as of 12/25/2023) Medications Medication Sig Dispensed Refills Start Date [...] MCG Oral Tablet Take by mouth. Active CenzicTouch Verio Flex System w/Device Kit Use to test blood sugars 4 times daily (fasting, 1 hour after breakfast, lunch, and dinner) 1 Kit 11/07/2023 Active CenzicTouch Verio In Vitro Strip (Glucose Blood) Use to test blood sugars 4 times daily (fasting, 1 hour after breakfast, lunch, and dinner) 125 Strip 6 11/07/2023 Active CenzicTouch Delica Lancets 30G Use to test blood sugars 4 times daily (fasting, 1 hour after breakfast, lunch, and dinner) 200 Each 6 11/07/2023 Active documented as of this encounter (statuses as of 12/25/2023) Active Problems Problem Noted Date Diagnosed Date [...] up ADAPT with maternal medicine nurse practitioner. 11/24/20237552-DTU-ypqaxcu blood sugars within normal limits. 2 of 6 elevated post prandial breakfast & lunch readings and 2 of 4 elevated post prandial dinner. Advised to watch diet and keep meal log to try and identify if dietary related. Will review again next week. 12/01/20231818-ALX-wkgkkfe stable (rare elevations mostly due to dietary choices (wings, fries, cereal). 12/08/20232001-VYW-xdiysgr stable (< 50% elevated) 12/15/20235380-FNV-kzsdjod stable (< 50% elevated) 12/22/23: RPM reviewed; Stable Last Assessment & Plan: Working with ADAPT. [...] and folate levels and referral to a land classifier. If hemoglobin levels are below 8 g/dl, we recommend Maternal Medicine ultrasound for growth every 4 weeks after 24 weeks. Consider a blood transfusion if hemoglobin levels fall below 6 g/dL. ([employer] Ink [employer] Practice Bulletin Number 95, September,). Consider Venofer [...] as of this encounter (statuses as of 12/25/2023) Immunizations Name Administration Dates Next Due COVID-19 [...] money to get more. Never true 09/12/2023 [place] Depression Scale Answer Date Recorded [place] Depression Scale Total 4 12/08/2023 The thought [...] 09/12/2023 Does the household have a re gular source of income? (Household - for ages [...] on file documented as of this encounter Miscellaneous Notes * Telephone Encounter - Maggie Rodriguez RPh - 12/25/2023 7:59 AM EDT Returned patient's call. No answer. Thanks, Maggie Rodriguez [facility] Clinical Pharmacist * Telephone Encounter - Leatha Flanagan PHARM Tech - 12/24/2023 3:39 PM EDT Caller's name: Julieta Preferred call back number(OFFICE NUMBER FOR ): [phone] Reason for call: Patient called in, she is returning a call back to the anemia clinic. Please advise. Thank you, Leatha Flanagan Field Marketing Lead I [facility] ([facility]) 12/24/2023, 3:39 PM documented in this encounter Plan of Treatment Upcoming Encounters Date Type Department Care Team (Late st Contact Info) Description 12/30/2023 9:00 AM EDT Office Visit Gynecology/Obstetrics Josefa Barragan [address] [place] [address] Awilda Retana CRNP [address] [place] [address] 12/31/2023 9:30 AM EDT Pharmacy Pharmacy, [place] [address] [place], [place] [id number] [place] [address] [place] [address] 01/01/2024 9:30 AM EDT Office Visit Sap Bpc Developer Obstetrics Maternal Medicine, Nazario Barragan [address] [place] [address] Monse Johnson, [address] [place] [address] 01/01/2024 9:30 AM EDT Imaging Maternal Medicine Imaging, Nazario Barragan [address] [place] [phone] 01/05/2024 7:45 AM EDT Office Visit Gynecology/Obstetrics Josefa Barragan [address] [place] [address] Twila Mclean PA-C [address] [place] [address] 01/12/2024 4:30 PM EDT Office Visit Gynecology/Obstetrics Josefa Barragan [address] [place] [address] Twila Mclean PA-C [address] [place] [address] 01/20/2024 8:00 AM EST Office Visit Gynecology/Obstetrics [facility] [address] [place] [address] Awilda Retana CRNP [address] [place] [address] 01/26/2024 7:45 AM EST Office Visit Gynecology/Obstetrics [facility] [address] [place] [address] Twila Mclean PA-C [address] [place] [address] Health Maintenance Due Date Last Done Comments [...] Not on filedocumented as of this encounter Additional Health Concerns Active Problems Noted Date Diagnosed Date OB Reminders 11/03/2023 documented as of this encounter Care Teams Liner Inserter Relationship Specialty Start Date End Date Margo Avila DO [address] [place] [id number] PCP - General Pediatrics 04/04/15 documented as of this encounter
--- OUTSIDE RECORDS SUMMARY | 2024-01-16 04:20 | External Medical Summary | Summary of Care ---
Author Name Unknown Organization [facility] Address [address] [facility] [address] Phone [phone] Care Team Providers Care Rivet Heater Name Role Phone Margo Avila Primary Care Provider [phone] Reason for Visit * Reason Onset Date Comments Forms Request 12/30/2023 Encounter Details Date Type Department Care Team (Late st Contact Info) Description 12/30/2023 Telephone Gynecology/Obstetrics [facility] [address] [place] [address] Awilda Retana CRNP [address] [place] [address] Forms Request Allergies No known active allergiesdocumented as of this encounter (statuses as of 12/30/2023) Medications Medication Sig Dispensed Refills Start Date [...] MCG Oral Tablet Take by mouth. Active XtraiceToHealthyChic Verio Flex System w/Device Kit Use to test blood sugars 4 times daily (fasting, 1 hour after breakfast, lunch, and dinner) 1 Kit 11/07/2023 Active XtraiceTouch Verio In Vitro Strip (Glucose Blood) Use to test blood sugars 4 times daily (fasting, 1 hour after breakfast, lunch, and dinner) 125 Strip 6 11/07/2023 Active XtraiceTouch Delica Lancets 30G Use to test blood sugars 4 times daily (fasting, 1 hour after breakfast, lunch, and dinner) 200 Each 6 11/07/2023 Active documented as of this encounter (statuses as of 12/30/2023) Active Problems Problem Noted Date Diagnosed Date [...] up ADAPT with maternal medicine nurse practitioner. 11/24/20236039-VBI-rahxlno blood sugars within normal limits. 2 of 6 elevated post prandial breakfast & lunch readings and 2 of 4 elevated post prandial dinner. Advised to watch diet and keep meal log to try and identify if dietary related. Will review again next week. 12/01/20230192-NVV-jzzunev stable (rare elevations mostly due to dietary choices (wings, fries, cereal). 12/08/20230874-LZC-bzfztqo stable (< 50% elevated) 12/15/20233448-QEE-uvnprjg stable (< 50% elevated) 12/22/23: RPM reviewed; [...] and folate levels and referral to a debt counselor. If hemoglobin levels are below 8 g/dl, we recommend Maternal Medicine ultrasound for growth every 4 weeks after 24 weeks. Consider a blood transfusion if hemoglobin levels fall below 6 g/dL. ([employer] Truck Switcher Practice Bulletin Number 95, September,). Consider Venofer [...] as of this encounter (statuses as of 12/30/2023) Immunizations Name Administration Dates Next Due COVID-19 [...] money to get more. Never true 09/12/2023 [place] Depression Scale Answer Date Recorded [place] Depression Scale Total 4 12/08/2023 The thought [...] encounter Miscellaneous Notes * Telephone Encounter - Svetlana Allen LPN - 12/30/2023 8:55 AM EDT Pt dropped off fmla for FOB. Will cotton picker at visit next week. documented in this encounter Plan of Treatment Upcoming Encounters Date Type Department Care Team (Late st Contact Info) Description 01/01/2024 9:30 AM EDT Office Visit Postdoctoral Research Associate Obstetrics Maternal Medicine, [address] [place] [address] Monse Johnson Floresi, DO [address] [place] [facility] [place] [address] 01/01/2024 9:30 AM EDT Imaging Maternal Medicine Imaging, Nazario Orrs [address] [place] [address] 01/05/2024 7:45 AM EDT [facility] [address] [place] [address] Twila Mclean PA-C [address] [place] [address] 01/12/2024 4:30 PM EDT [facility] [address] [place] [address] Twila Mclean PA-C [address] [place] [address] 01/20/2024 8:00 AM EST Office [facility] [address] [place] [address] Awilda Retana CRNP [address] [place] [address] 01/26/2024 7:45 AM EST Office [facility] [address] [place] [address] Twila Mclean PA-C [address] [place] [address] Health Maintenance Due Date Last Done Comments [...] documented as of this encounter Care Teams Rivet Heater Relationship Specialty Start Date End Date Margo Avila DO [address] [facility] [address] [facility] [place] [address] PCP - General Pediatrics 04/04/15 documented as of this encounter
--- OUTSIDE RECORDS SUMMARY | 2024-01-16 04:20 | External Medical Summary ---
Author Name Unknown Address Unknown Organization K01:[facility]AT[facility] - [address] [place] [address] Laboratory Report Ordering Provider Test Date Status CHAU KWOK 12/22/2023 07:04:03 Final Observation Date Value Abnormality Reference (Units ) Status Iron 12/22/2023 07:04:03 104 33-151 (ug /dL) Final Iron-binding capacity 12/22/2023 07:04:03 394 250-425 (ug/dL) Final Transferrin Sat % 12/22/2023 07:04:03 26 15 -55 (%) Final Performing Location [facility] - [address] [place] [address]
--- OUTSIDE RECORDS SUMMARY | 2024-01-16 04:20 | External Medical Summary | Summary of Care ---
Author Name Unknown Organization [facility] Address [address] [place] [address] Phone [phone] Care Team Providers Care Residential Property Manager Name Role Phone Margo Avila DO Primary Care Provider [phone] Reason for Visit * Reason Onset Date Comments Returning Call 12/24/2023 Encounter Details Date Type Department Care Team (Late st Contact Info) Description 12/24/2023 Telephone Centralized Clinical Pharmacy Services, Karlie Schmidt [address] [place] [address] [place] [address] Clinic, Anemia [address] [place] [address] Returning Call Allergies No known [...] MCG Oral Tablet Take by mouth. Active LogicStream HealthTouch Verio Flex System w/Device Kit Use to test blood sugars 4 times daily (fasting, 1 hour after breakfast, lunch, and dinner) 1 Kit 11/07/2023 Active LogicStream HealthTouch Verio In Vitro Strip (Glucose Blood) Use to test blood sugars 4 times daily (fasting, 1 hour after breakfast, lunch, and dinner) 125 Strip 6 11/07/2023 Active LogicStream HealthTouch Delica Lancets 30G Use to test blood [...] up ADAPT with maternal medicine nurse practitioner. 11/24/20239637-HOI-gxkdpuf blood sugars within normal limits. 2 of 6 elevated post prandial breakfast & lunch readings and 2 of 4 elevated post prandial dinner. Advised to watch diet and keep meal log to try and identify if dietary related. Will review again next week. 12/01/20239968-WAZ-iwkkvmx stable (rare elevations mostly due to dietary choices (wings, fries, cereal). 12/08/20230352-IAU-aoenxjg stable (< 50% elevated) 12/15/20234393-LVU-ygnjfls stable (< 50% elevated) 12/22/23: RPM reviewed; [...] and folate levels and referral to a jelly maker. If hemoglobin levels are below 8 g/dl, we recommend Maternal Medicine ultrasound for growth every 4 weeks after 24 weeks. Consider a blood transfusion if hemoglobin levels fall below 6 g/dL. ([employer] and Production Graphic Designer Practice Bulletin Number 95, September,). Consider Venofer [...] money to get more. Never true 09/12/2023 [place] Depression Scale Answer Date Recorded [place] Depression Scale Total 4 12/08/2023 The thought [...] encounter Miscellaneous Notes * Telephone Encounter - Antonia Alcocer CPhT - 12/25/2023 8:20 AM EDT Pt returned call. Warm Transfer to [facility]. Thank you, Antonia Alcocer Loom Tuner Centralized Clinical Pharmacy Services 12/25/2023,8:21 AM * Telephone Encounter - Maggie Rodriguez [facility] - 12/25/2023 7:59 AM EDT Returned patient's call. No answer. Thanks, Maggie Rodriguez [facility] Clinical Pharmacist * Telephone Encounter - Leatha Flanagan PHARM Tech - 12/24/2023 3:39 PM EDT Caller's name: Julieta Preferred call back number(OFFICE NUMBER FOR ): [phone] Reason for call: Patient called in, she is returning a call back to the anemia clinic. Please advise. Thank you, Leatha Flanagan Loom Tuner I [facility] ([facility]) 12/24/2023, 3:39 PM documented in this encounter Plan of Treatment Upcoming Encounters Date Type Department Care Team (Late st Contact Info) Description 12/30/2023 9:00 AM EDT Office Visit Gynecology/Obstetrics Josefa Barragan [address] [place] [address] Awilda Retana CRNP [address] [place] [address] 12/31/2023 9:30 AM EDT Pharmacy Pharmacy, [place] [address] [place], [place] [id number] Clinic, Anemia [address] [place] [address] 01/01/2024 9:30 AM EDT Office Visit Yarn Finisher Obstetrics Maternal Medicine, Nazario Barragan [address] [place] [address] Monse Johnson, [address] [place] [address] 01/01/2024 9:30 AM EDT Imaging Maternal Medicine Imaging, Nazario Barragan [address] [place] [phone] 01/05/2024 7:45 AM EDT Office Visit Gynecology/Obstetrics Josefa Barragan [address] [place] [address] Twila Mclean PA-C [address] [place] [address] 01/12/2024 4:30 PM EDT Office Visit Gynecology/Obstetrics [facility] [address] [place] [address] Twila Mclean PA-C [address] [place] [address] 01/20/2024 8:00 AM EST Office Visit Gynecology/Obstetrics [facility] [address] [place] [address] Awilda Retana CRNP [address] [place] [address] 01/26/2024 7:45 AM EST Office Visit Gynecology/Obstetrics [facility] [address] [place] [address] Twila Mclean PA-C [address] [place] [address] Health Maintenance Due Date Last Done Comments [...] Author Reminders Care Plan OB Reminders No Fernandot, Provider documented as of this encounter Medical Devices Not on filedocumented as of this encounter Additional Health Concerns Active Problems Noted Date Diagnosed Date OB Reminders 11/03/2023 documented as of this encounter Care Teams Residential Property Manager Relationship Specialty Start Date End Date Margo Avila DO [address] [facility] [address] [place] [address] PCP - General Pediatrics 04/04/15 documented as of this encounter
--- OUTSIDE RECORDS SUMMARY | 2024-01-16 04:20 | External Medical Summary ---
Author Name Unknown Address Unknown Organization K01:[facility] [place] [address] [facility] [place] [address] Laboratory Report Ordering Provider Test Date Status SUNDARCHAU HINES 12/22/2023 07:04:03 Final Observation Date Value Abnormality Reference (Units ) Status SYNC LEUKOCYTES IN BLOOD BY AUTOMATED COUNT 12/22/2023 07:04:03 8.71 4.00-10.80 (K/uL) Final Segs 12/22/2023 07:04:03 65.7 40.0-75.0 (%) Final Lymphs % 12/22/2023 07:04:03 22.4 18.0-42.0 (%) Final Monos 12/22/2023 07:04:03 8.8 1.0-11.0 (%) Final Eosinophils 12/22/2023 07:04:03 1.5 0.0-6.0 (%) Final Basos 12/22/2023 07:04:03 0.5 0.0-2.0 (%) Final Immature Granulocyte, Percent 12/22/2023 07:04:03 1.1 0.0-2.0 (%) Final Absolute Segs 12/22/2023 07:04:03 5.72 1.80-7.70 (K/uL) Final Lymphs, absolute 12/22/2023 07:04:03 1.95 1.00-4.80 (K/ul) Final Monos, Abs 12/22/2023 07:04:03 0.77 0.00-1.10 (K/uL) Final Eos, Abs 12/22/2023 07:04:03 0.13 0.00-0.70 (K/uL) Final Basos, Abs 12/22/2023 07:04:03 0.04 0.00-0.20 (K/uL) Final Immature Granulocytes, Number 12/22/2023 07:04:03 0.10 0.00-0.20 (K/uL) Final Performing Location [facility] [place] [address] [facility] [address]
--- OUTSIDE RECORDS SUMMARY | 2024-01-16 04:20 | External Medical Summary | Summary of Care ---
Author Name Unknown Organization [facility] Address [address] [facility] [address] Phone [phone] Care Team Providers Care Sql Server Architect Name Role Phone Margo Avila Primary Care Provider [phone] Reason for Visit * Reason Onset Date Comments Forms Request 12/30/2023 Encounter Details Date Type Department Care Team (Late st Contact Info) Description 12/30/2023 Telephone Gynecology/Obstetrics [facility] [address] [place] [address] Awilda Retana CRNP [address] [place] [address] Forms Request Allergies No known active allergiesdocumented [...] MCG Oral Tablet Take by mouth. Active Band MetricsToMinitrade Verio Flex System w/Device Kit Use to test blood sugars 4 times daily (fasting, 1 hour after breakfast, lunch, and dinner) 1 Kit 11/07/2023 Active Band MetricsTouch Verio In Vitro Strip (Glucose Blood) Use to test blood sugars 4 times daily (fasting, 1 hour after breakfast, lunch, and dinner) 125 Strip 6 11/07/2023 Active Band MetricsTouch Delica Lancets 30G Use to test blood [...] up ADAPT with maternal medicine nurse practitioner. 11/24/20239245-JHD-qljjhcw blood sugars within normal limits. 2 of 6 elevated post prandial breakfast & lunch readings and 2 of 4 elevated post prandial dinner. Advised to watch diet and keep meal log to try and identify if dietary related. Will review again next week. 12/01/20236403-EPE-iitfqtm stable (rare elevations mostly due to dietary choices (wings, fries, cereal). 12/08/20237422-TXJ-fbmqmpf stable (< 50% elevated) 12/15/20231763-ZCP-cncvlft stable (< 50% elevated) 12/22/23: RPM reviewed; [...] and folate levels and referral to a comic book writer. If hemoglobin levels are below 8 g/dl, we recommend Maternal Medicine ultrasound for growth every 4 weeks after 24 weeks. Consider a blood transfusion if hemoglobin levels fall below 6 g/dL. ([employer] Front End Driver Practice Bulletin Number 95, September,). Consider Venofer [...] money to get more. Never true 09/12/2023 [place] Depression Scale Answer Date Recorded [place] Depression Scale Total 4 12/08/2023 The thought [...] Encounter - Svetlana Allen LPN - 12/30/2023 9:16 AM EDT Forms complete and signed. Originals in triage for patient pickup at next visit. Copies in scan bin. * Telephone Encounter - Svetlana Allen LPN - 12/30/2023 8:55 AM EDT Pt dropped off fmla for FOB. Will picking tech at visit next week. documented in this encounter Plan of Treatment Upcoming Encounters Date Type Department Care Team (Late st Contact Info) Description 01/01/2024 9:30 AM EDT Office Visit Retail Performance Coach Obstetrics Maternal Medicine, Nazario Barragan [address] [place] [address] Monse Johnson, DO [address] [place] [address] 01/01/2024 9:30 AM EDT Imaging Maternal Medicine Imaging, Nazario Barragan [address] [place] [phone] 01/05/2024 7:45 AM EDT Office Visit Gynecology/Obstetrics Josefa Barragan [address] [place] [address] Twila Mclean PA-C [address] [place] [address] 01/12/2024 4:30 PM EDT Office Visit Gynecology/Obstetrics Josefa Barragan [address] [place] [address] Twila Mclean PA-C [address] [place] [address] 01/20/2024 8:00 AM EST Office Visit Gynecology/Obstetrics Josefa Barragan [address] [place] [address] Awilda Retana CRNP [address] [place] [address] 01/26/2024 7:45 AM EST Office Visit Gynecology/Obstetrics Josefa Barragan [address] [place] [address] Twila Mclean PA-C [address] [place] [address] Health Maintenance Due Date Last Done Comments [...] documented as of this encounter Care Teams Sql Server Architect Relationship Specialty Start Date End Date Margo Avila DO [address] [place] [address] PCP - General Pediatrics 04/04/15 documented as of this encounter
--- OUTSIDE RECORDS SUMMARY | 2024-01-16 04:20 | External Medical Summary ---
Author Name Unknown Address Unknown Organization K01:LABORATORY [facility] [place] - [address] [place] [address] Laboratory Report Ordering Provider Test Date Status SUNDARCHAU HINES 12/22/2023 07:04:03 Final Observation Date Value Abnormality Reference (Units ) Status Retic, % (auto) 12/22/2023 07:04:03 2.59 Above high normal 0.80-1.90 (%) Final Reticulocytes, Absolute 12/22/2023 07:04:03 102.8 Above high normal 31.3-100.1 (K/uL) Final Reticulocyte fraction, immature 12/22/2023 07:04:03 26.7 Above high normal 2.5-20.6 (%) Final Reticulocyte HGB 12/22/2023 07:04:03 31.6 29.7-37.4 (pg) Final Performing Location LABORATORY [facility] [place] - [address] [place] [address]
--- OUTSIDE RECORDS SUMMARY | 2024-01-16 04:20 | External Medical Summary | Summary of Care ---
Author Name Unknown Organization [facility] Address [address] [place] [address] Phone [phone] Care Team Providers Care Vp Cardiovascular Name Role Phone Avila Margo Shari KELLEY Primary Care Provider Reason for Visit * Reason Onset Date Comments Anemia Follow-Up 12/24/2023 Anemia Follow-Up 12/25/2023 Encounter Details Date Type Department Care Team (Late st Contact Info) Description 12/23/2023 9:30 AM EDT Pharmacy Pharmacy, [place] [address], [place] [id number] Clinic, Anemia [facility] [place] [address] Iron deficiency anemia, unspecified iron deficiency anemia type* Allergies No known active allergiesdocumented as of [...] MCG Oral Tablet Take by mouth. Active ActionBaseTouch Verio Flex System w/Device Kit Use to test blood sugars 4 times daily (fasting, 1 hour after breakfast, lunch, and dinner) 1 Kit 11/07/2023 Active OneTouch Verio In Vitro Strip (Glucose Blood) Use to test blood sugars 4 times daily (fasting, 1 hour after breakfast, lunch, and dinner) 125 Strip 6 11/07/2023 Active ActionBaseTouch Delica Lancets 30G Use to test blood [...] up ADAPT with maternal medicine nurse practitioner. 11/24/20233283-ZXC-klovypm blood sugars within normal limits. 2 of 6 elevated post prandial breakfast & lunch readings and 2 of 4 elevated post prandial dinner. Advised to watch diet and keep meal log to try and identify if dietary related. Will review again next week. 12/01/20230005-CCN-jqoxlmv stable (rare elevations mostly due to dietary choices (wings, fries, cereal). 12/08/20238469-ZQM-szeimdg stable (< 50% elevated) 12/15/20236415-AVH-tveisrf stable (< 50% elevated) 12/22/23: RPM reviewed; [...] and folate levels and referral to a yard foreman. If hemoglobin levels are below 8 g/dl, we recommend Maternal Medicine ultrasound for growth every 4 weeks after 24 weeks. Consider a blood transfusion if hemoglobin levels fall below 6 g/dL. ([employer] Loom Winder Tender Practice Bulletin Number 95, September,). Consider Venofer [...] money to get more. Never true 09/12/2023 [place] Depression Scale Answer Date Recorded [place] Depression Scale Total 4 12/08/2023 The thought [...] as of this encounter Progress Notes * Maggie Hansen, [facility] - 12/24/2023 3:35 PM EDT Patient Phone Numbers Called patient to review labs from 12/21. GA: 35w5d Estimated Date of Delivery: 01/23/24 Hgb: 12.0 g/dL TSAT: 26 % Ferritin: 116 ng/mL B12: 388 pg/mL FA: >20.0 ng/mL Patient is s/p Infed 1gm on 11/13. Hgb is within target range for the third trimester. Iron studies within target range. Patient reports feeling good. She never felt bad to begin with. She will continue to take B12 1000mcg tablets. Plan: No anemia pharmacological intervention at this time. Anemia Clinic will sign off at this time.. Thank you for allowing us to participate in the care of this patient. Thanks, Maggie Hansen [facility] Clinical Pharmacist [facility] (P: [phone]) 12/24/2023 3:35 PM documented in this encounter Miscellaneous Notes * Addendum Note - Maggie Hansen [facility] - 12/25/2023 8:23 AM EDTAddended by: MAGGIE HANSEN on: 12/25/2023 08:23 AM Modules accepted: Orders * Addendum Note - Maggie Hansen [facility] - 12/25/2023 7:59 AM EDTAddended by: MAGGIE HANSEN on: 12/25/2023 07:59 AM Modules accepted: Orders documented in this encounter Plan of Treatment Upcoming Encounters Date Type Department Care Team (Late st Contact Info) Description 12/30/2023 9:00 AM EDT Office Visit Gynecology/Obstetrics Josefa Barragan [address] [place] [address] Awilda Retana CRNP [address] [place] [address] 01/01/2024 9:30 AM EDT Office Visit Safety Associate Obstetrics [facility] [address] [place] [address] Monse Johnson, DO [address] [place] [address] 01/01/2024 9:30 AM EDT Imaging Maternal Medicine Imaging, Nazario Barragan [address] [place] [address] 01/05/2024 7:45 AM EDT Office Visit Gynecology/Obstetrics [facility] [address] [place] [address] Twila Mclean PA-C [address] [place] [address] 01/12/2024 4:30 PM EDT Office Visit Gynecology/Obstetrics [facility] [address] [place] [address] Twila Mclean PA-C [address] [place] [address] 01/20/2024 8:00 AM EST Office Visit Gynecology/Obstetrics [facility] [address] [place] [address] Awilda Retana CRNP [address] [place] [address] 01/26/2024 7:45 AM EST Office Visit Gynecology/Obstetrics [facility] [address] [place] [address] Twila Mcelan PA-C [address] [place] [address] Health Maintenance Due Date Last Done Comments [...] as of this encounter Visit Diagnoses Diagnosis Iron deficiency anemia, unspecified iron deficiency anemia type- Primary documented in this encounter Additional Health Concerns Active Problems Noted Date Diagnosed Date OB Reminders 11/03/2023 documented as of this encounter Care Teams Vp Cardiovascular Relationship Specialty Start Date End Date Margo Avila DO [address] [facility] [address] [place] [address] PCP - General Pediatrics 04/04/15 documented as of this encounter
--- OUTSIDE RECORDS SUMMARY | 2024-01-16 04:20 | External Medical Summary | Summary of Care ---
Author Name Unknown Organization [facility] Address [address] [facility] [address] Phone [phone] Care Team Providers Care Flavor Maker Name Role Phone Austin Margo Shari KELLEY Primary Care Provider [phone] Reason for Visit * Reason Comments Outpatient Testing Encounter Details Date Type Department Care Team (Late st Contact Info) Description 12/22/2023 7:00 AM EDT Laboratory Laboratory, [facility] [address] [facility] [place] [phone] [facility] [address] [facility] [place] [address] Iron deficiency anemia, unspecified iron deficiency anemia type Allergies No known active allergiesdocumented as of [...] MCG Oral Tablet Take by mouth. Active SecureRF CorporationTouch Verio Flex System w/Device Kit Use to test blood sugars 4 times daily (fasting, 1 hour after breakfast, lunch, and dinner) 1 Kit 11/07/2023 Active OneTouch Verio In Vitro Strip (Glucose Blood) Use to test blood sugars 4 times daily (fasting, 1 hour after breakfast, lunch, and dinner) 125 Strip 6 11/07/2023 Active SecureRF CorporationTouch Delica Lancets 30G Use to test blood [...] up ADAPT with maternal medicine nurse practitioner. 11/24/20231807-WQZ-efztwph blood sugars within normal limits. 2 of 6 elevated post prandial breakfast & lunch readings and 2 of 4 elevated post prandial dinner. Advised to watch diet and keep meal log to try and identify if dietary related. Will review again next week. 12/01/20230075-EYL-jcyneds stable (rare elevations mostly due to dietary choices (wings, fries, cereal). 12/08/20236413-FXC-wkjjqkb stable (< 50% elevated) 12/15/20236966-WUA-ebsoaod stable (< 50% elevated) Last Assessment & [...] and folate levels and referral to a ice cream man. If hemoglobin levels are below 8 g/dl, we recommend Maternal Medicine ultrasound for growth every 4 weeks after 24 weeks. Consider a blood transfusion if hemoglobin levels fall below 6 g/dL. ([employer] and Tube Cleaning Operator Practice Bulletin Number 95, September,). Consider [...] mRNA, LNP-s, No Pre serve, 2-Dose Series (Aniika) 07/28/2020,07/07/2020 DTaP Dipth/Tet/Acell Pertussis (Infanrix), Peds 07/21/2000,01/03/1997,01/05/1996,11/03,1995 [...] money to get more. Never true 09/12/2023 [place] Depression Scale Answer Date Recorded [place] Depression Scale Total 4 12/08/2023 The thought [...] No 09/12/2023 Does the household have a [facility] source [facility] income? (Household - for ages [...] on file documented as of this encounter Plan of Treatment Upcoming Encounters Date Type Department Care Team (Late st Contact Info) Description 12/22/2023 7:45 AM EDT Office Visit Gynecology/Obstetric s [facility]en Barragan [address] [place] [address] Twila Mclean PA-C [address] [place] [address] Supervision of normal first , antepartum*; Antepartum anemia complicating ; Diet controlled gestational diabetes mellitus (GDM) in third trimester; Excessive growth affecting management of in third trimester 12/23/2023 9:30 AM EDT Pharmacy Pharmacy, [place] [address] [place] [address] Clinic, Anemia [address] [place] [address] 01/01/2024 9:30 AM EDT Office Visit Flight Follower Obstetrics Maternal Medicine, Nazario Barragan [address] [facility] [place] [address] Monse Johnson, [address] [place] [address] 01/01/2024 9:30 AM EDT Imaging Maternal Medicine Imaging, Nazario Orrs [address] [facility] [place] [phone] 01/05/2024 7:45 AM EDT Office Visit Gynecology/Obstetric s Josefa Barragan [address] [place] [address] Twila Mclean PA-C [address] [place] [address] Pending Results Name Type Priority Associated Diagnoses Date /Time CBC WITH WBC DIFFERENTIAL Lab Routine Iron deficiency anemia, unspecified iron deficiency anemia type 12/22/2023 7:04 AM EDT IRON SCREEN, INCLUDING TIBC Lab Routine Iron deficiency anemia, unspecified iron deficiency anemia type 12/22/2023 7:04 AM EDT FERRITIN Lab Routine Iron deficiency anemia, unspecified iron deficiency anemia type 12/22/2023 7:04 AM EDT RETICULOCYTE PANEL Lab Routine Iron deficiency anemia, unspecified iron deficiency anemia type 12/22/2023 7:04 AM EDT FOLIC ACID Lab Routine Iron deficiency anemia, unspecified iron deficiency anemia type 12/22/2023 7:04 AM EDT VITAMIN B12 Lab Routine Iron deficiency anemia, unspecified iron deficiency anemia type 12/22/2023 7:04 AM EDT CBC Lab Routine Iron deficiency anemia, unspecified iron deficiency anemia type 12/22/2023 7:04 AM EDT DIFFERENTIAL, AUTOMATED Lab Routine Iron deficiency anemia, unspecified iron deficiency anemia type 12/22/2023 7:04 AM EDT Health Maintenance Due Date Last Done Comments [...] growth affecting management of in third trimester Iron deficiency anemia, unspecified iron deficiency anemia type documented in this encounter Additional Health Concerns Active Problems Noted Date Diagnosed Date OB Reminders 11/03/2023 documented as of this encounter Care Teams Flavor Maker Relationship Specialty Start Date End Date Margo Avila DO [address] [place] [address] PCP - General Pediatrics 04/04/15 documented as of this encounter
--- OUTSIDE RECORDS SUMMARY | 2024-01-16 04:20 | External Medical Summary ---
Author Name Unknown Address Unknown Organization K01:LABORATORY [facility] [place] - [address] [place] [address] Laboratory Report Ordering Provider Test Date Status CHAU KWOK 12/22/2023 07:04:03 Final Observation Date Value Abnormality Reference (Units ) Status Vitamin B12 12/22/2023 07:04:03 [phone] (pg/mL) Final Performing Location LABORATORY [facility] - [address] [place] [address]
--- OUTSIDE RECORDS SUMMARY | 2024-01-16 04:20 | External Medical Summary ---
Author Name Unknown Address Unknown Organization K01:LABORATORY [place] [address] [place] [address] Laboratory Report Ordering Provider Test Date Status MELISSA LAM 12/30/2023 09:57:28 Final Observation Date Value Abnormality Reference (Units ) Status Streptococcus agalactiae DNA [Presence] in Specimen by PATI with probe detection 12/30/2023 09:57:28 Negative Negative Final No Group B Streptococcus det ected by culture-enhanced PCR (amplified probe). GBS [facility] - [facility] 12/30/2023 09:57:28 0.0 Final GBS SPCCT - [facility] 12/30/2023 09:57:28 30.5 Final Performing Location LABORATORY [facility] - [address] [place] [address]
--- OUTSIDE RECORDS SUMMARY | 2024-01-16 04:20 | External Medical Summary | Summary of Care ---
Author Name Unknown Organization [facility] Address [address] [facility] [address] Phone [phone] Care Team Providers Care Dump Truck Operator Name Role Phone Margo Avila Shari KELLEY Primary Care Provider [phone] Reason for Visit * Reason Comments Return Visit Encounter Details Date Type Department Care Team (Late st Contact Info) Description 12/30/2023 9:00 AM EDT Office Visit Gynecology/Obstetric s Josefa Barragan [address] [place] [address] Awilda Retana CRNP [address] [place] [address] Supervision of normal first , antepartum*; Antepartum [...] MCG Oral Tablet Take by mouth. Active Whispering GibbonTouch Verio Flex System w/Device Kit Use to test blood sugars 4 times daily (fasting, 1 hour after breakfast, lunch, and dinner) 1 Kit 11/07/2023 Active OneTouch Verio In Vitro Strip (Glucose Blood) Use to test blood sugars 4 times daily (fasting, 1 hour after breakfast, lunch, and dinner) 125 Strip 6 11/07/2023 Active Whispering GibbonTouch Delica Lancets 30G Use to test blood [...] up ADAPT with maternal medicine nurse practitioner. 11/24/20237320-JAS-idzsxlb blood sugars within normal limits. 2 of 6 elevated post prandial breakfast & lunch readings and 2 of 4 elevated post prandial dinner. Advised to watch diet and keep meal log to try and identify if dietary related. Will review again next week. 12/01/20230318-XAW-yukejkm stable (rare elevations mostly due to dietary choices (wings, fries, cereal). 12/08/20231464-RYB-zfrbmxc stable (< 50% elevated) 12/15/20239762-ZUW-fjnruyx stable (< 50% elevated) 12/22/23: RPM reviewed; [...] and folate levels and referral to a captain's assistant. If hemoglobin levels are below 8 g/dl, we recommend Maternal Medicine ultrasound for growth every 4 weeks after 24 weeks. Consider a blood transfusion if hemoglobin levels fall below 6 g/dL. ([employer] Lunchroom Attendant Practice Bulletin Number 95, September,). Consider Venofer [...] mRNA, LNP-s, No Pre serve, 2-Dose Series (TAPQUAD) 07/28/2020,07/07/2020 DTaP Dipth/Tet/Acell Pertussis (Infanrix), Peds 07/21/2000,01/03/1997,01/05/1996,11/03,1995 [...] money to get more. Never true 09/12/2023 [place] Depression Scale Answer Date Recorded [place] Depression Scale Total 4 12/08/2023 The thought [...] No 09/12/2023 Does the household have a [facility] source [facility] income? (Household - for ages [...] Sign Reading Time Taken Comments Blood Pressure 102/70 12/30/2023 8:43 AM EDT Pulse - - Temperature - - Respiratory Rate - - Oxygen Saturation - - Inhaled Oxygen Concentration - - Weight 64.9 kg (143 lb) 12/30/2023 8:43 AM EDT Height 157.5 cm (5' 2") 12/30/2023 8:43 AM EDT Body Mass Index 26.16 12/30/2023 8:43 AM EDT documented in this encounter Progress Notes * Awilda Retana CRNP - 12/30/2023 8:59 AM EDT 36w4d No concerns. Following with MFM for GDM, has growth u/s later this week. States that she has some blood sugar readings that are high, but remains diet controlled. Baby is active. Denies contractions, bleeding, LOF. GBS done. Middle [employer] Director Documentation Provider requested ct scan technician. Name of ct scan technician: Svetlana. DARLINE Garcia documented in this encounter Nursing Notes * Svetlana Allen LPN - 12/30/2023 8:50 AM EDT 36w4d Denies concerns. * Svetlana Allen LPN - 12/30/2023 8:43 AM EDT 36w4d GBS today. documented in this encounter Plan of Treatment Upcoming Encounters Date Type Department Care Team (Late st Contact Info) Description 01/01/2024 9:30 AM EDT Office Visit Vehicle Sales Professional Obstetrics Maternal Medicine, Nazario Barragan [address] [place] [address] Monse Johnson, DO [address] [facility] [place] [address] 01/01/2024 9:30 AM EDT Imaging Maternal Medicine Imaging, [place] [phone] 01/05/2024 7:45 AM EDT Office Visit Gynecology/Obstetrics Josefa Barragan [address] [place] [address] Twila Mclean PA-C [address] [place] [address] 01/12/2024 4:30 PM EDT Office Visit Gynecology/Obstetrics [facility] [address] [place] [address] Twila Mclean PA-C [address] [place] [address] 01/20/2024 8:00 AM EST Office Visit Gynecology/Obstetrics [facility] [address] [place] [address] Awilda Retana CRNP [address] [place] [address] 01/26/2024 7:45 AM EST Office Visit Gynecology/Obstetrics [facility] [address] [place] [address] Twila Mclean PA-C [address] [place] [address] Pending Results Name Type Priority Associated Diagnoses Date /Time GROUP B STREP CULTURE/PCR Lab Routine Supervision of normal first , antepartum 12/30/2023 9:57 AM EDT Health Maintenance Due Date Last [...] documented as of this encounter Care Teams Dump Truck Operator Relationship Specialty Start Date End Date Margo Avila DO [address] [facility] [address] [place] [address] PCP - General Pediatrics 04/04/15 documented as of this encounter
--- OUTSIDE RECORDS SUMMARY | 2024-01-16 04:20 | External Medical Summary | Summary of Care ---
Author Name Unknown Organization [facility] Address [address] [facility] [address] Phone [phone] Care Team Providers Care Parts Inspector Name Role Phone Margo Avila Shari KELLEY Primary Care Provider [phone] Reason for Visit * Reason Comments Return Visit Encounter Details Date Type Department Care Team (Late st Contact Info) Description 12/30/2023 9:00 AM EDT Office Visit Gynecology/Obstetric s Josefa Barragan [address] [place] [address] Awilda Retana CRNP [address] [place] [address] Supervision of normal first , antepartum*; Antepartum [...] MCG Oral Tablet Take by mouth. Active DanceTrippinTouch Verio Flex System w/Device Kit Use to test blood sugars 4 times daily (fasting, 1 hour after breakfast, lunch, and dinner) 1 Kit 11/07/2023 Active OneTouch Verio In Vitro Strip (Glucose Blood) Use to test blood sugars 4 times daily (fasting, 1 hour after breakfast, lunch, and dinner) 125 Strip 6 11/07/2023 Active DanceTrippinTouch Delica Lancets 30G Use to test blood [...] up ADAPT with maternal medicine nurse practitioner. 11/24/20237320-YSY-hlpufsh blood sugars within normal limits. 2 of 6 elevated post prandial breakfast & lunch readings and 2 of 4 elevated post prandial dinner. Advised to watch diet and keep meal log to try and identify if dietary related. Will review again next week. 12/01/20235760-GGP-lfsdeah stable (rare elevations mostly due to dietary choices (wings, fries, cereal). 12/08/20230427-SIK-junfyyh stable (< 50% elevated) 12/15/20232787-YEN-bxdwybv stable (< 50% elevated) 12/22/23: RPM reviewed; [...] and folate levels and referral to a infection control manager. If hemoglobin levels are below 8 g/dl, we recommend Maternal Medicine ultrasound for growth every 4 weeks after 24 weeks. Consider a blood transfusion if hemoglobin levels fall below 6 g/dL. ([employer] Ecological Modeler Practice Bulletin Number 95, September,). Consider Venofer [...] mRNA, LNP-s, No Pre serve, 2-Dose Series (Optony) 07/28/2020,07/07/2020 DTaP Dipth/Tet/Acell Pertussis (Infanrix), Peds 07/21/2000,01/03/1997,01/05/1996,11/03,1995 [...] money to get more. Never true 09/12/2023 [place] Depression Scale Answer Date Recorded [place] Depression Scale Total 4 12/08/2023 The thought [...] No 09/12/2023 Does the household have a unm cancer centerlar source of income? (Household - for [...] active. Denies contractions, bleeding, LOF. GBS done. Wire Stitcher Operator Documentation Provider requested director life insurance. Name of director life insurance: Svetlana. DARLINE Garcia documented in this encounter Nursing Notes * Svetlana Allen LPN - 12/30/2023 8:50 AM EDT 36w4d Denies concerns. * Svetlana Allen LPN - 12/30/2023 8:43 AM EDT 36w4d GBS today. documented in this encounter Plan of Treatment Upcoming Encounters Date Type Department Care Team (Late st Contact Info) Description 01/01/2024 9:30 AM EDT Office Visit Dog Daycare Provider Obstetrics Maternal Medicine, Nazario Barragan [address] [place] [address] Monse Johnson, DO [address] [facility] [place] [address] 01/01/2024 9:30 AM EDT Imaging Maternal Medicine Imaging, [place] [phone] 01/05/2024 7:45 AM EDT Office Visit Gynecology/Obstetrics Josefa Barragan [address] [place] [address] Twila Mclean PA-C [address] [place] [address] 01/12/2024 4:30 PM EDT Office Visit Gynecology/Obstetrics [facility] [address] [place] [address] Twila Mclean PA-C [address] [place] [address] 01/20/2024 8:00 AM EST Office Visit Gynecology/Obstetrics [facility] [address] [place] [address] Awilda Retana CRNP [address] [place] [address] 01/26/2024 7:45 AM EST Office Visit Gynecology/Obstetrics [facility] [address] [place] [address] Twila Mclean PA-C [address] [place] [address] Scheduled Orders Name Type Priority Associated Diagnoses Orde r Schedule GROUP B STREP CULTURE/PCR Lab Routine Supervision of normal first , antepartum Ordered: 12/30/2023 Health Maintenance Due Date Last Done Comments [...] documented as of this encounter Care Teams Parts Inspector Relationship Specialty Start Date End Date Margo Avila DO [address] [place] [address] PCP - General Pediatrics 04/04/15 documented as of this encounter
--- OUTSIDE RECORDS SUMMARY | 2024-01-16 04:20 | External Medical Summary | Summary of Care ---
Author Name Unknown Organization [facility] Address [address] [place] [address] Phone [phone] Care Team Providers Care Vp Sales Name Role Phone Avila Margo Shari KELLEY Primary Care Provider [phone] Reason for Visit * Reason Onset Date Comments Anemia Follow-Up 12/24/2023 Anemia Follow-Up 12/25/2023 Encounter Details Date Type Department Care Team (Late st Contact Info) Description 12/23/2023 9:30 AM EDT Pharmacy Pharmacy, [place] [address], [place] [id number] Clinic, Anemia [facility] [place] [address] Iron deficiency anemia, unspecified iron deficiency anemia [...] MCG Oral Tablet Take by mouth. Active BioinceptTouch Verio Flex System w/Device Kit Use to test blood sugars 4 times daily (fasting, 1 hour after breakfast, lunch, and dinner) 1 Kit 11/07/2023 Active OneTouch Verio In Vitro Strip (Glucose Blood) Use to test blood sugars 4 times daily (fasting, 1 hour after breakfast, lunch, and dinner) 125 Strip 6 11/07/2023 Active BioinceptTouch Delica Lancets 30G Use to test blood [...] up ADAPT with maternal medicine nurse practitioner. 11/24/20238250-ZRO-foszckz blood sugars within normal limits. 2 of 6 elevated post prandial breakfast & lunch readings and 2 of 4 elevated post prandial dinner. Advised to watch diet and keep meal log to try and identify if dietary related. Will review again next week. 12/01/20239653-HIF-ckrzysu stable (rare elevations mostly due to dietary choices (wings, fries, cereal). 12/08/20232724-TUA-aliqytf stable (< 50% elevated) 12/15/20232795-EEQ-dvhmzzk stable (< 50% elevated) 12/22/23: RPM reviewed; [...] and folate levels and referral to a machine operator hop picker. If hemoglobin levels are below 8 g/dl, we recommend Maternal Medicine ultrasound for growth every 4 weeks after 24 weeks. Consider a blood transfusion if hemoglobin levels fall below 6 g/dL. ([employer]ians and Supervisor Air Conditioning Installer Practice Bulletin Number 95, September,). Consider Venofer [...] to get more. Never true 09/12/2023 [place] Depression Scale Answer Date Recorded [place] Depression Scale Total 4 12/08/2023 The thought [...] this encounter Progress Notes * Maggie Hansen, [facility] - 12/24/2023 3:35 PM EDT Patient Phone Numbers Called patient to review labs from 12/21. LUCI. GA: 35w5d Estimated Date of Delivery: 01/23/24 Hgb: 12.0 g/dL TSAT: 26 % Ferritin: 116 ng/mL B12: 388 pg/mL FA: >20.0 ng/mL Patient is s/p Infed 1gm on 11/13. Hgb is within target range for the third trimester. Iron studies within target range. Plan: No anemia pharmacological intervention at this time. Anemia Clinic will continue to follow. Thank you for allowing us to participate in the care of thispatient. Thanks, Maggie Hansen [facility] Clinical Pharmacist [facility]emia [facility] (P: [phone]) 12/24/2023 3:35 PM documented in this encounter Miscellaneous Notes * Addendum Note - Maggie Hansen RPh - 12/25/2023 7:59 AM EDTAddended by: MAGGIE HANSEN on: 12/25/2023 07:59 AM Modules accepted: Orders documented in this encounter Plan of Treatment Upcoming Encounters Date Type Department Care Team (Late st Contact Info) Description 12/30/2023 9:00 AM EDT Office Visit Gynecology/Obstetrics Josefa Barragan [address] [place] [address] Awilda Retana CRNP [address] [place] [address] 12/31/2023 9:30 AM EDT Pharmacy Pharmacy, [place] [address] [place] [address] Clinic, Anemia [address] [place] [address] 01/01/2024 9:30 AM EDT Office Visit Retail Cosmetics Sales Counter Manager Obstetrics Maternal Medicine, Nazario Barragan [address] [place] [address] Monse Johnson DO [address] [place] [address] 01/01/2024 9:30 AM EDT Imaging Maternal Medicine Imaging, Nazario Barragan [address] [place] [phone] 01/05/2024 7:45 AM EDT Office Visit Gynecology/Obstetrics [facility] [address] [place] [address] Twila Mclean PA-C [address] [place] [address] 01/12/2024 4:30 PM EDT Office Visit Gynecology/Obstetrics [facility] [address] [place] [address] Twila Mclean PA-C [address] [place] [address] 01/20/2024 8:00 AM EST Office Visit Gynecology/Obstetrics [facility] [address] [place] [address] Awilda Retana CRNP [address] [place] [address] 01/26/2024 7:45 AM EST Office Visit Gynecology/Obstetrics [facility] [address] [place] [address] Twila Mclean PA-C [address] [place] [address] Health Maintenance Due Date Last Done Comments [...] as of this encounter Care Teams Vp Sales Relationship Specialty Start Date End Date Margo Avila DO [address] [facility] [address] [place] [address] PCP - General Pediatrics 04/04/15 documented as of this encounter
--- OUTSIDE RECORDS SUMMARY | 2024-01-16 04:20 | External Medical Summary ---
Author Name Unknown Address Unknown Organization K[facility] - [address] [place] [address] Laboratory Report Ordering Provider Test Date Status CHAU KWOK 12/22/2023 07:04:03 Final Observation Date Value Abnormality Reference (Units ) Status Folic Acid 12/22/2023 07:04:03 >20.0 >4.5 (ng/ mL) Final Performing Location [facility] - [address] [place] [address]
--- OUTSIDE RECORDS SUMMARY | 2024-01-16 04:20 | External Medical Summary | Summary of Care ---
Author Name Unknown Organization [facility] Address [address] [place] [address] Phone [phone] Care Team Providers Care Customer Sales Distributor Name Role Phone AvilaMargo DO Primary Care Provider [phone] Reason for Visit * Reason Onset Date Comments Status Check Anemia Follow-Up 12/12/2023 Encounter Details Date Type Department Care Team (Late st Contact Info) Description 12/12/2023 2:30 PM EDT Pharmacy Pharmacy, [place] [address] [place], [place] [phone] Clinic, Anemia [address], [place] [id number] Iron deficiency anemia, unspecified iron deficiency anemia type* Allergies No known active allergiesdocumented as of this encounter (statuses as of 12/12/2023) Medications Medication Sig Dispensed Refills Start Date [...] MCG Oral Tablet Take by mouth. Active Altius EducationTouch Verio Flex System w/Device Kit Use to test blood sugars 4 times daily (fasting, 1 hour after breakfast, lunch, and dinner) 1 Kit 11/07/2023 Active OneTouch Verio In Vitro Strip (Glucose Blood) Use to test blood sugars 4 times daily (fasting, 1 hour after breakfast, lunch, and dinner) 125 Strip 6 11/07/2023 Active Altius EducationTouch Delica Lancets 30G Use to test blood sugars 4 times daily (fasting, 1 hour after breakfast, lunch, and dinner) 200 Each 6 11/07/2023 Active documented as of this encounter (statuses as of 12/12/2023) Active Problems Problem Noted Date Diagnosed Date [...] up ADAPT with maternal medicine nurse practitioner. 11/24/20230387-FUZ-ezrfluu blood sugars within normal limits. 2 of 6 elevated post prandial breakfast & lunch readings and 2 of 4 elevated post prandial dinner. Advised to watch diet and keep meal log to try and identify if dietary related. Will review again next week. 12/01/20230240-URH-cnpxusm stable (rare elevations mostly due to dietary choices (wings, fries, cereal). 12/08/20237025-JDM-fyrltko stable (< 50% elevated) Last Assessment & [...] and folate levels and referral to a flagsetter. If hemoglobin levels are below 8 g/dl, we recommend Maternal Medicine ultrasound for growth every 4 weeks after 24 weeks. Consider a blood transfusion if hemoglobin levels fall below 6 g/dL. ([employer] and Dough Panner Practice Bulletin Number 95, September,). Consider Venofer [...] as of this encounter (statuses as of 12/12/2023) Immunizations Name Administration Dates Next Due COVID-19 [...] money to get more. Never true 09/12/2023 [place] Depression Scale Answer Date Recorded [place] Depression Scale Total 4 12/08/2023 The thought [...] as of this encounter Progress Notes * Josy Walton RPh - 12/12/2023 12:01 PM EDT CBCd, ferritin, iron screen, retic panel, B12, FA ordered for 12/22/23. Josy Walton, PharmD, [facility] Clinical Pharmacist [facility] Anemia Clinic (P: [phone]) 12/12/2023 12:01 PM * Cyndy Cardenas CPhT - 12/12/2023 11:20 AM EDT Patient Phone Numbers Call to patient to schedule labs. Left vm for patient. Patient received Infed on 11/13. Labs due on 12/21. GA: 34w0d Estimated Date of Delivery: 01/23/24 Pharmacist - please place appropriate lab orders. Thank you, Cyndy Cardenas CPhT Business Operations Consultant II [facility] 12/12/2023,11:20 AM documented in this encounter Plan of Treatment Upcoming Encounters Date Type Department Care Team (Late st Contact Info) Description 12/22/2023 7:45 AM EDT Office Visit Gynecology/Obstetrics Josefa Barragan [address] [place] [address] Twila Mclean PA-C [address] [place] [address] 12/23/2023 9:30 AM EDT Pharmacy Pharmacy, [place] [address] [place] [address] Clinic, [facility] [address] [place] [address] 01/01/2024 9:30 AM EDT Office Visit Brick Extruder Operator Obstetrics Maternal Medicine, Nazario Orrs [address] [place] [address] Monse Johnson, [address] [place] [address] 01/01/2024 9:30 AM EDT Imaging Maternal Medicine Imaging, Nazario Barragan [address] [place] [phone] 01/05/2024 7:45 AM EDT Office Visit Gynecology/Obstetrics [facility] [address] [place] [address] Twila Mclean PA-C [address] [place] [address] Scheduled Orders Name Type Priority Associated Diagnoses Orde r Schedule CBC WITH WBC DIFFERENTIAL Lab Routine Iron deficiency anemia, unspecified iron deficiency anemia type Expected: 12/22/2023, Expires: 11/10/2024 IRON SCREEN, INCLUDING TIBC Lab Routine Iron deficiency anemia, unspecified iron deficiency anemia type Expected: 12/22/2023, Expires: 11/10/2024 FERRITIN Lab Routine Iron deficiency anemia, unspecified iron deficiency anemia type Expected: 12/22/2023, Expires: 11/10/2024 RETICULOCYTE PANEL Lab Routine Iron deficiency anemia, unspecified iron deficiency anemia type Expected: 12/22/2023, Expires: 11/10/2024 FOLIC ACID Lab Routine Iron deficiency anemia, unspecified iron deficiency anemia type Expected: 12/22/2023, Expires: 11/10/2024 VITAMIN B12 Lab Routine Iron deficiency anemia, unspecified iron deficiency anemia type Expected: 12/22/2023, Expires: 11/10/2024 Health Maintenance Due Date Last Done Comments [...] documented as of this encounter Care Teams Customer Sales Distributor Relationship Specialty Start Date End Date Margo Avila DO [address] [facility] [address] [place] [address] PCP - General Pediatrics 04/04/15 documented as of this encounter
--- OUTSIDE RECORDS SUMMARY | 2024-01-16 04:21 | External Medical Summary | Summary of Care ---
Author Name Unknown Organization [facility] Address [address] [place] [facility] [place] [address] Phone [phone] Care Team Providers Care Novelty Printing Machine Operator Name Role Phone AvilaMargo DO Primary Care Provider [phone] Reason for Visit * Reason Comments Procedure Infed Encounter Details Date Type Department Care Team (Latest Contact Info) Description 11/14/2023 12:30 PM EDT Hem/Onc Treatment Hematology/Oncology Treatment, [address] [address] Tammy, Chair [address] On[address] [address] Iron deficiency anemia, unspecified iron deficiency anemia type* Allergies No known active allergiesdocumented as of this encounter (statuses as of 11/20/2023) Medications Medication Sig Dispensed Refills Start Date [...] MCG Oral Tablet Take by mouth. Active StyleQ Flex System w/Device Kit Use to test blood sugars 4 times daily (fasting, 1 hour after breakfast, lunch, and dinner) 1 Kit 11/07/2023 Active StyleQ In Vitro Strip (Glucose Blood) Use to test blood sugars 4 times daily (fasting, 1 hour after breakfast, lunch, and dinner) 125 Strip 6 11/07/2023 Active [employer] Lancets 30G Use to test blood sugars 4 times daily (fasting, 1 hour after breakfast, lunch, and dinner) 200 Each 6 11/07/2023 Active documented as of this encounter (statuses as of 11/20/2023) Active Problems Problem Noted Date Diagnosed Date Iron deficiency anemia 11/11/2023 Diet controlled gestational [...] up ADAPT with maternal medicine nurse practitioner. Last Assessment & Plan: CONSIDERATIONS: Reviewed etiology and risks associated with gestational diabetes mellitus (GDM), including risks to , fetus, and maternal progression to Type 2 DM. Instructed on proper use of glucometer; supplies ordered, if indicated. Advised that life-long screening for diabetes is recommended every 1-3 years. RECOMMENDATIONS: Recommend monitoring blood sugars with daily fasting blood sugar (maintained at less than or equal to 95) and 1 hour postprandial measurements (maintained at less than or equal to 140). Medications should be adjusted to maintain these target values. Report levels to MFM (Maternal- Medicine) via [facility]. Recommend nutrition consult with RDN (Registered Dietitian Accountant Cost). Lifestyle changes are also indicated including optimizing gestational weight gain and physical activity of 30 minutes per day, if not otherwise contraindicated in . Insulin is preferred if medications are indicated to optimize euglycemia. Metformin (preferred over glyburide) may also be used in some circumstances. Reviewed the risks and benefits of each. Recommend ultrasound, surveillance and delivery as follows: A1GDM, delivery should be accomplished by 41w0d. A2GDM, recommend growth assessment with MFM every 4 weeks, initiate surveillance with twice weekly NSTs at 32 weeks and continue until delivery at 39 weeks. Recommend intrapartum monitoring every 1-2 hours (A2GDM) or every 4 hours (A1GDM) and treat with insulin if indicated. Recommend 2-hour glucose tolerance testing with 75-gram glucose load during admission (or 6-8 weeks if not completed). Antepartum anemia complicating 024 Overview: Blood management [...] and folate levels and referral to a soap slabber. If hemoglobin levels are below 8 g/dl, we recommend Maternal Medicine ultrasound for growth every 4 weeks after 24 weeks. Consider a blood transfusion if hemoglobin levels fall below 6 g/dL. ([employer] Bulletin Number 95, September,). Consider Venofer transfusions if patient labs supportive of iron deficiency anemia with dosing of 300 mg IV weekly x 3 weeks Supervision of normal first , antepartu m 06/17/2023 Candidiasis 03/30/2021 Anxiety disorder 03/30/2021 Hematuria 01/29/2013 Overview: ICD-10 update of inactive term Estimated Date of Delivery Comme nts Yes 01/23/2024 Based on last me nstrual period of 04/18/2023 (Exact Date) documented as of this encounter (statuses as of 11/20/2023) Immunizations Name Administration Dates Next Due COVID-19 [...] OPV - Polio Virus Vaccine (Oral) 01/05/1996,10/16,1995 Seasonal Influenza Virus Vac cine, Unspecified Formulation 01/08/2013 TDAP (age 10 and older)(Boostrix) 11/07/2023 TDAP, Age 7 and older, IM (Adacel) 11/05/2006 Varicella Vaccine (Chicken Pox) 03/03/2007,07/08 documented as of this encounter Social History Tobacco Use Types Packs/Day Years Used Date Smoking Tobacco: Never Smokeless Tobacco: Never Tobacco Cessation:Counseling Given: Not Answered Alcohol Use Standard Drinks/Week Comments No 0 [...] money to get more. Never true 09/12/2023 [place] Depression Scale Answer Date Recorded [place] Depression Scale Total 5 06/17/2023 The thought of harming myself has occurred to me . Never 06/17/2023 Childcare Answer Date Recorded Do you feel [...] Sign Reading Time Taken Comments Blood Pressure 120/76 11/14/2023 2:25 PM EDT Pulse 118 11/14/2023 2:25 PM EDT Temperature 37.1 C (98.7 F) 11/14/2023 2:25 PM ED T Respiratory Rate 16 11/14/2023 2:25 PM EDT Oxygen Saturation 98% 11/14/2023 2:25 PM EDT Inhaled Oxygen Concentration - - Weight - - Height - - Body Mass Index - - documented in this encounter Nursing Notes * Rosy Mustafa, RN - 11/14/2023 1:49 PM EDT 1323- pt c/o sneezing multiple times, new onset nasal congestion, throat itching. Pt denies pain, SOB. 1327- Solucortef 100mg IVP administered. VS checked; WNL. Dr. Eddy notified. 1333- pt reports throat itching has resolved, nasal congestion still present. Per Dr. Eddy, Famotidine IVP administered. Per Awilda Retana CUT OUT WORKER, proceed under guidance of Dr. Eddy. 1340- Benadryl IVP administered. 1350-Per Dr. Eddy, okay to resume Infed infusion as nasal congestion has nearly completely resolved. Pt completed infusion without further issues. IV removed. Goals: Pt will remain free from injury. Possible barriers to meeting goals: risk of reaction Stability of the patient: Moderately stable - low risk of patient condition declining or worsening Summary regarding today's goals: Met: pt experienced mild reaction to Infed infusion, but symptoms resolved with prn medications. Pt discharged in stable condition. * Arelis Beltran RN - 11/14/2023 12:55 PM EDT Patient ambulatory to chair 7 Patient voices no complaints or concerns. Patient is 29 weeks . Patient was oriented to department and given instructions to let RN know of any reaction after testdose or infusion, verbalized understanding. Safety and Risk for Injury Patient will remain free from injury. Ensure appropriate safety devices are available. Provide and maintain safe environment. Patient instructed on use of heat and massage functions where applicable. Patient shown how to operate the heat function of the chair and to alert nursing staff if the chair feels too warm. Patient instructed on the risk of potential davis while using the heat function. Goals: patient will remain free of injury Possible barriers to meeting goals: ambulation with IV pole, increase risk of fall Stability of the patient: Moderately stable - low risk of patient condition declining or worsening Summary regarding today's goals: Met: patient remained free of injury 1340 Patient c/o sneezing, itchy throat, congestion, coughing and stuffy sinus. Cheeks red and flushed. Infed infusion immediately stopped and emergency medication of Solu-Cortef and Pepcid given IV.Dr. Eddy at chair to assess patient. Patient able to speak in full sentences. Awilda GREGORIO notified of reaction and plan of Dr. Eddy to resume after medication and symptoms resolved. IV Benadrywas added and patient stated she felt "much better" and symptoms were resolving. Infed resumed (1412) without any further reaction. Patient discharged in good condition documented in this encounter Plan of Treatment Upcoming Encounters Date Type Department Care Team (Late st Contact Info) Description 11/24/2023 10:00 AM EDT Office Visit Gynecology/Obstetrics [facility] [address] [place] [address] Verito Plummer CRNP [address] [place] [address] 11/25/2023 8:30 AM EDT Office Visit Restaurant Attendant Obstetrics Maternal Medicine, [place] [address] [place] [address] Monse Johnson [address] [place], [place] [phone] 11/25/2023 8:30 AM EDT Imaging Radiology [facility], [place] [address] [place], [place] [phone] 12/08/2023 8:00 AM EDT Office Visit Gynecology/Obstetrics [facility] [address] [place] [address] Awilda Retana CRNP [address] [place] [address] 12/12/2023 2:30 PM EDT Pharmacy Pharmacy, [place] [address] [place], [place] [phone] [facility], [facility] [address] [place], [place] [phone] Health Maintenance Due Date Last Done Comments [...] anemia type- Primary documented in this encounter Administered Medications Inactive Administered Medications - up to 3 most recent administrations Medication Order MAR Action Action Date Dose Rate Site diphenhydrAMINE (Benadryl) inj 25 mg 25 mg, IV Push, ONCE, On Fri11/14/23 at 1430, For 1 dose Given 11/14/2023 1:40 PM EDT 25 mg Famotidine (Pepcid) inj 20 mg 20 mg, IV Push, ONCE PRN Other, Hypersensitivity Reaction, Starting on Fri11/14/23 at 1247, Until Fri11/14/23 at 2103, For 24 hours, Give IV push over 2 minutes. Given 11/14/2023 1:33 PM EDT 20 mg Hydrocortisone Sod Suc (PF) (Solu-Cortef) inj 100 mg 100 mg, IV Push, ONCE PRN Other, Hypersensitivity Reaction, Starting on Fri11/14/23 at 1247, Until Fri11/14/23 at 2103, For 24 hours Given 11/14/2023 1:27 PM EDT 100 mg Iron Dextran (Infed) 975 mg in NSS 250 mL INFUSION 975 mg, IV Piggyback, ONCE, 1 dose, On Fri11/14/23 at 1415, Administer over 1 Hours, - Administer iron dextran infusion bag over 1 hour - Monitor for infusion reactions with vitals at 30 minutes and 60 minutes after starting the infusion. - If patient develops sign/symptoms of reaction or vital signs outside normal limits: 1) STOP infusion 2) CONTACT physician Restarted 11/14/2023 2:12 PM EDT 274.5 mL/hr Start Infusion 11/14/2023 1:07 PM EDT 975 mg 274.5 mL/ hr Iron Dextran (Infed) IV Push TEST DOSE 25 mg IV Push, Administer over 0.5 Minutes, -Educate patient on signs/symptoms of infusion reaction -Administer 25 mg test dose of iron dextran before infusion bag -Observe patient for signs/symptoms of reaction with vital signs before test dose, then at 15 minutes after administering the test dose -If patient tolerates test dose with no reaction, proceed with iron dextran infusion -HOLD infusion and contact physician immediately if patient reacts to test dose, ONCE, 1 dose, On Fri11/14/23 at 1400 Given 11/14/2023 12:49 PM EDT 25 mg NSS infusion Intravenous, at 50 mL/hr, PRN, Starting on Fri11/14/23 at 1400, Until Fri11/14/23 at 2103, Maintenance line Start Infusion 11/14/2023 12:48 PM EDT 50 mL/hr documented in this encounter Additional Health Concerns Active Problems Noted Date Diagnosed Date OB Reminders 11/03/2023 documented as of this encounter Care Teams Novelty Printing Machine Operator Relationship Specialty Start Date End Date Margo Avila DO [address] [place] [address] PCP - General Pediatrics 04/04/15 documented as of this encounter
--- OUTSIDE RECORDS SUMMARY | 2024-01-16 04:21 | External Medical Summary | Summary of Care ---
Author Name Unknown Organization [facility] Address [address] [facility] [address] Phone [phone] Care Team Providers Care Contracts Director Name Role Phone Austin Margo Shari KELLEY Primary Care Provider [phone] Reason for Visit * Reason Comments Return Visit Encounter Details Date Type Department Care Team (Late st Contact Info) Description 11/24/2023 10:00 AM EDT Office Visit Gynecology/Obstetric s Josefa Barragan [address] [place] [address] Verito Plummer CRNP [address] [place] [address] Supervision of normal first , antepartum*; Antepartum anemia complicating ; Diet controlled gestational diabetes mellitus (GDM) in third trimester Allergies No known active allergiesdocumented as of this encounter (statuses as of 11/24/2023) Medications Medication Sig Dispensed Refills Start Date [...] MCG Oral Tablet Take by mouth. Active [employer] Flex System w/Device Kit Use to test blood sugars 4 times daily (fasting, 1 hour after breakfast, lunch, and dinner) 1 Kit 11/07/2023 Active [employer] In Vitro Strip (Glucose Blood) Use to test blood sugars 4 times daily (fasting, 1 hour after breakfast, lunch, and dinner) 125 Strip 6 11/07/2023 Active [employer] Lancets 30G Use to test blood sugars 4 times daily (fasting, 1 hour after breakfast, lunch, and dinner) 200 Each 6 11/07/2023 Active documented as of this encounter (statuses as of 11/24/2023) Active Problems Problem Noted Date Diagnosed Date [...] Report levels to MFM (Maternal- Medicine) via [facility]. Recommend nutrition consult with RDN (Registered Dietitian Leather Goods Ii Assembler). Lifestyle changes are also indicated including optimizing [...] and folate levels and referral to a gis geographer. If hemoglobin levels are below 8 g/dl, we recommend Maternal Medicine ultrasound for growth every 4 weeks after 24 weeks. Consider a blood transfusion if hemoglobin levels fall below 6 g/dL. ([employer] Black Jack Dealer Practice Bulletin Number 95, September,). Consider Venofer [...] as of this encounter (statuses as of 11/24/2023) Immunizations Name Administration Dates Next Due COVID-19 mRNA, LNP-s, No Pre serve, 2-Dose Series (Proactive Comfort) 07/28/2020,07/07/2020 DTaP Dipth/Tet/Acell Pertussis (Infanrix), Peds 07/21/2000,01/03/1997,01/05/1996,11/03,1995 [...] money to get more. Never true 09/12/2023 [place] Depression Scale Answer Date Recorded [place] Depression Scale Total 5 06/17/2023 The thought [...] Sign Reading Time Taken Comments Blood Pressure 116/62 11/24/2023 9:38 AM EDT Pulse - - Temperature - - Respiratory Rate - - Oxygen Saturation - - Inhaled Oxygen Concentration - - Weight 61.5 kg (135 lb 9.6 oz) 11/24/2023 9:38 A M EDT Height - - Body Mass Index 24.8 09/12/2023 4:21 PM EDT documented in this encounter Progress Notes * Verito Plummer CRNP - 11/24/2023 9:44 AM EDT 31w3d Working with ADAPT for GDM. Feels she is getting a better grasp on carb counting. Sometimes forgetsher glucometer when they go out to eat - advised she can still check a post-prandial level at 2 hrs. Some morning nausea; has anti-emetic at home if needed. Baby moving well. Denies leaking, bleeding, ctx. Plans to use [facility] peds. Completed FMLA forms returned to pt. 2 week return DARLINE Jung * Daniella Berg CMA - 11/24/2023 9:38 AM EDT 31w3d Nauseous and vomiting in the mornings recently. Does go away right away. documented in this encounter Plan of Treatment Upcoming Encounters Date Type Department Care Team (Late st Contact Info) Description 11/25/2023 8:30 AM EDT Office Visit Manufacturing Engineering Intern Obstetrics Maternal Medicine, [place] [address] [place] [address] Monse Johnson, [place] [address] 11/25/2023 8:30 AM EDT Imaging Radiology [facility], [place] [address] [place] [address] 12/08/2023 8:00 AM EDT Office Visit Gynecology/Obstetrics [facility] [address] [place] [address] Awilda Retana CRNP [address] [facility] [place] [address] 12/12/2023 2:30 PM EDT Pharmacy Pharmacy, [address] [phone] [facility], [place] [address] [place] [address] Health Maintenance Due Date Last Done Comments [...] documented as of this encounter Care Teams Contracts Director Relationship Specialty Start Date End Date Margo Avila DO [address] [facility] [address] [facility] [address] PCP - General Pediatrics 04/04/15 documented as of this encounter
--- OUTSIDE RECORDS SUMMARY | 2024-01-16 04:21 | External Medical Summary | Summary of Care ---
Author Name Unknown Organization [facility] Address [address] [place] [facility] [place] [place] [address] Phone [phone] Care Team Providers Care Reset Merchandiser Name Role Phone AvilaMargo DO Primary Care Provider [phone] Reason for Visit * Reason Comments Procedure Infed Encounter Details Date Type Department Care Team (Latest Contact Info) Description 11/14/2023 12:30 PM EDT Hem/Onc Treatment Hematology/Oncology Treatment, [address] [address] Tammy, Chair 1 Hem Onc [address] [address] Iron deficiency anemia, unspecified iron deficiency anemia [...] MCG Oral Tablet Take by mouth. Active [employer] Flex System w/Device Kit Use to test blood sugars 4 times daily (fasting, 1 hour after breakfast, lunch, and dinner) 1 Kit 11/07/2023 Active [employer] In Vitro Strip (Glucose Blood) Use to test blood sugars 4 times daily (fasting, 1 hour after breakfast, lunch, and dinner) 125 Strip 6 11/07/2023 Active Fix[employer] Lancets 30G Use to test blood sugars [...] Report levels to MFM (Maternal- Medicine) via [facility]. Recommend nutrition consult with RDN (Registered Dietitian Software Trainer). Lifestyle changes are also indicated including optimizing [...] and folate levels and referral to a tram inspector. If hemoglobin levels are below 8 g/dl, we recommend Maternal Medicine ultrasound for growth every 4 weeks after 24 weeks. Consider a blood transfusion if hemoglobin levels fall below 6 g/dL. ([employer] [facility] [facility] Bulletin Number 95, September,). Consider Venofer [...] money to get more. Never true 09/12/2023 [place] Depression Scale Answer Date Recorded [place] Depression Scale Total 5 06/17/2023 The thought [...] Eddy, Famotidine IVP administered. Per Awilda Retana BRICK EXTRUDER OPERATOR, proceed under guidance of Dr. Eddy. 1340- [...] 11/24/2023 10:00 AM EDT Office Visit Gynecology/Obstetrics [facility] [address] [place] [address] Verito Plummer CRNP [address] [place] [address] 11/25/2023 8:30 AM EDT Office Visit Donor Services Coordinator Obstetrics Maternal Medicine, [place] [address] [place] [address] Monse Johnson [address] [place], [place] [phone] 11/25/2023 8:30 AM EDT Imaging Radiology [facility], [place] [address] [place], [place] [phone] 12/08/2023 8:00 AM EDT Office Visit Gynecology/Obstetrics [facility] [address] [place] [address] Awilda Retana CRNP [address] [place] [address] 12/12/2023 2:30 PM EDT Pharmacy Pharmacy, [place] [address] [place], [place] [phone] [facility], [facility] [address] [place], [place] [phone] Health Maintenance Due Date Last Done Comments [...] documented as of this encounter Care Teams Reset Merchandiser Relationship Specialty Start Date End Date Margo Avila DO [address] [place] [address] PCP - General Pediatrics 04/04/15 documented as of this encounter
--- OUTSIDE RECORDS SUMMARY | 2024-01-16 04:21 | External Medical Summary | Summary of Care ---
Author Name Unknown Organization [facility] Address [address] [place] [address] Phone [phone] Care Team Providers Care Scrap Iron Loader Name Role Phone AvilaMrago DO Primary Care Provider [phone] Reason for Visit * Reason Onset Date Comments Anemia Follow-Up 11/20/2023 Encounter Details Date Type Department Care Team (Late st Contact Info) Description 11/20/2023 10:00 AM EDT Pharmacy Pharmacy, [place] [address] [place], [place] [phone] Clinic, [place] [address] [place] [address] Iron deficiency anemia, unspecified iron deficiency anemia [...] MCG Oral Tablet Take by mouth. Active [employer] Flex System w/Device Kit Use to test blood sugars 4 times daily (fasting, 1 hour after breakfast, lunch, and dinner) 1 Kit 11/07/2023 Active [employer] In Vitro Strip (Glucose Blood) Use to test blood sugars 4 times daily (fasting, 1 hour after breakfast, lunch, and dinner) 125 Strip 6 11/07/2023 Active [employer] Lancets 30G Use to test blood sugars [...] Recommend nutrition consult with RDN (Registered Dietitian Pile Driver Operator Helper). Lifestyle changes are also indicated including optimizing [...] and folate levels and referral to a cone runner. If hemoglobin levels are below 8 g/dl, we recommend Maternal Medicine ultrasound for growth every 4 weeks after 24 weeks. Consider a blood transfusion if hemoglobin levels fall below 6 g/dL. ([employer] [facility] [facility] Atmospheric Sciences Professor Practice Bulletin Number 95, September,). Consider Venofer [...] money to get more. Never true 09/12/2023 [place] Depression Scale Answer Date Recorded [place] Depression Scale Total 5 06/17/2023 The thought [...] for ages 0-17 years) Not on file 06 / Food Insecurity Answer Date Recorded Do you [...] of this encounter Progress Notes * Maggie Rodriguez RPh - 11/20/2023 3:38 PM EDT Patient received Infed 1gm x 1 on 11/13 and appeared to have tolerated it without issue. GA: 30w6d Estimated Date of Delivery: 01/23/24 Follow-up after completion of series to schedule repeat labs if appropriate prior to delivery. Anemia Clinic will continue to follow. Thank you for allowing us to participate in the care of thispatient. Thanks, Maggie Rodriguez [facility] Clinical Pharmacist [facility] (P: [phone]) 11/20/2023 3:38 PM documented in this encounter Plan of Treatment Upcoming Encounters Date Type Department Care Team (Late st Contact Info) Description 11/24/2023 10:00 AM EDT Office Visit Gynecology/Obstetrics Josefa Barragan [address] [place] [address] Verito Plummer CRNP [address] [place] [address] 11/25/2023 8:30 AM EDT Office Visit Nursing Services Manager Obstetrics Maternal Medicine, [place] [address] [place] [address] Monse Johnson [address] [place] [address] 11/25/2023 8:30 AM EDT Imaging Radiology [facility], [place] [address] [place] [address] 12/08/2023 8:00 AM EDT Office Visit Gynecology/Obstetrics [facility] [address] [place] [address] Awilda Retana CRNP [address] [facility] [place] [address] 12/12/2023 2:30 PM EDT Pharmacy Pharmacy, [place] [address] [place], [place] [phone] [place] [address] [place] [address] Health Maintenance Due Date Last Done Comments [...] documented as of this encounter Care Teams Scrap Iron Loader Relationship Specialty Start Date End Date Margo Avila DO [address] [facility] [address] [place] [address] PCP - General Pediatrics 04/04/15 documented as of this encounter
--- OUTSIDE RECORDS SUMMARY | 2024-01-16 04:21 | External Medical Summary | Summary of Care ---
Author Name Unknown Organization [facility] Address [address] [facility] [place] [address] Phone [phone] Care Team Providers Care Foster Care Therapist Name Role Phone AvilaMargo DO Primary Care Provider [phone] Reason for Visit * Reason Comments Procedure Infed Encounter Details Date Type Department Care Team (Latest Contact Info) Description 11/14/2023 12:30 PM EDT Hem/Onc Treatment Hematology/Oncology Treatment, [address] [address] Tammy, Chair [address] [address] Iron deficiency anemia, unspecified iron deficiency anemia [...] MCG Oral Tablet Take by mouth. Active Gamify Flex System w/Device Kit Use to test blood sugars 4 times daily (fasting, 1 hour after breakfast, lunch, and dinner) 1 Kit 11/07/2023 Active Gamify In Vitro Strip (Glucose Blood) Use to test blood sugars 4 times daily (fasting, 1 hour after breakfast, lunch, and dinner) 125 Strip 6 11/07/2023 Active Appnique Lancets 30G Use to test blood sugars [...] Report levels to MFM (Maternal- Medicine) via [facility]. Recommend nutrition consult with RDN (Registered Dietitian Load Checker). Lifestyle changes are also indicated including optimizing [...] and folate levels and referral to a legal operations manager. If hemoglobin levels are below 8 g/dl, we recommend Maternal Medicine ultrasound for growth every 4 weeks after 24 weeks. Consider a blood transfusion if hemoglobin levels fall below 6 g/dL. ([employer] and Public Relations Consultant Practice Bulletin Number 95, September,). Consider Venofer [...] money to get more. Never true 09/12/2023 [place] Depression Scale Answer Date Recorded [employer] Depression Scale Total 5 06/17/2023 The thought [...] Eddy, Famotidine IVP administered. Per Awilda Retana DIGITAL PRINT OPERATOR, proceed under guidance of Dr. Eddy. [...] 11/24/2023 10:00 AM EDT Office Visit Gynecology/Obstetrics [place] [address] [place] [address] Verito Plummer CRNP [address] [place] [address] 11/25/2023 8:30 AM EDT Office Visit Top Ironer Obstetrics Maternal Medicine, [place] [address] [place] [address] Monse Johnson [address], [place] [id number] 11/25/2023 8:30 AM EDT Imaging Radiology [facility], [place] [address] [place], [place] [id number] 12/08/2023 8:00 AM EDT Office Visit Gynecology/Obstetrics [place] [address] [place] [address] Awilda Retana CRNP [address] [place] [address] 12/12/2023 2:30 PM EDT Pharmacy Pharmacy, [place] [address] [place], [place] [id number] [facility], [facility] [address] [place], [place] [id number] Health Maintenance Due Date Last Done Comments [...] documented as of this encounter Care Teams Foster Care Therapist Relationship Specialty Start Date End Date Margo Avila DO [address] [place] [address] PCP - General Pediatrics 04/04/15 documented as of this encounter
--- OUTSIDE RECORDS SUMMARY | 2024-01-16 04:21 | External Medical Summary | Summary of Care ---
Author Name Unknown Organization [facility] Address [address] [place] [place] [address] Phone [phone] Care Team Providers Care Isotope Technician Name Role Phone AvilaMargo DO Primary Care Provider [phone] Reason for Visit * Reason Comments Procedure Infed Encounter Details Date Type Department Care Team (Latest Contact Info) Description 11/14/2023 12:30 PM EDT Hem/Onc Treatment Hematology/Oncology Treatment, [address] [address] Tammy, Chair [address] [address] Iron deficiency anemia, unspecified iron deficiency anemia [...] MCG Oral Tablet Take by mouth. Active SavySwap Flex System w/Device Kit Use to test blood sugars 4 times daily (fasting, 1 hour after breakfast, lunch, and dinner) 1 Kit 11/07/2023 Active SavySwap In Vitro Strip (Glucose Blood) Use to test blood sugars 4 times daily (fasting, 1 hour after breakfast, lunch, and dinner) 125 Strip 6 11/07/2023 Active Vengo Labs Lancets 30G Use to test blood sugars [...] Report levels to MFM (Maternal- Medicine) via [facility]. Recommend nutrition consult with RDN (Registered Dietitian Fork Operator). Lifestyle changes are also indicated including optimizing [...] and folate levels and referral to a keymodule assembly supervisor. If hemoglobin levels are below 8 g/dl, we recommend Maternal Medicine ultrasound for growth every 4 weeks after 24 weeks. Consider a blood transfusion if hemoglobin levels fall below 6 g/dL. ([employer] Obstetricians and Streetcar Operator Practice Bulletin Number 95, September,). Consider [...] money to get more. Never true 09/12/2023 [place] Depression Scale Answer Date Recorded [place] Depression Scale Total 5 06/17/2023 The thought [...] Eddy, Famotidine IVP administered. Per Awilda Retana SENIOR SSIS DEVELOPER, proceed under guidance of Dr. Eddy. 1340- [...] 11/24/2023 10:00 AM EDT Office Visit Gynecology/Obstetrics [facility] [address] [place] [address] Verito Plummer CRNP [address] [place] [address] 11/25/2023 8:30 AM EDT Office Visit Pharmaceutical Analyst Obstetrics Maternal Medicine, [place] [address] [place] [address] Monse Johnson [address] [place], [place] [id number] 11/25/2023 8:30 AM EDT Imaging Radiology [facility], [place] [address] [place], [place] [id number] 12/08/2023 8:00 AM EDT Office Visit Gynecology/Obstetrics [facility] [address] [facility] [place] [address] Awilda Retana CRNP [address] [place] [address] 12/12/2023 2:30 PM EDT Pharmacy Pharmacy, [place] [address] [place], [place] [id number] [facility], [facility] [address] [place], [place] [phone] Health Maintenance Due Date Last Done Comments [...] documented as of this encounter Care Teams Isotope Technician Relationship Specialty Start Date End Date Margo Avila DO [address] [place] [address] PCP - General Pediatrics 04/04/15 documented as of this encounter
--- OUTSIDE RECORDS SUMMARY | 2024-01-16 04:21 | External Medical Summary | Summary of Care ---
Author Name Unknown Organization [facility] Address [address] [place] [address] Phone [phone] Care Team Providers Care Agile Business Analyst Name Role Phone Austin Margo Shari KELLEY Primary Care Provider [phone] Reason for Visit * Reason Comments Ultrasound Encounter Details Date Type Department Care Team (Late st Contact Info) Description 11/25/2023 8:30 AM EDT Office Visit Splash Line Operator Obstetrics Maternal Medicine, [place] [address] [place] [address] Monse Johnson, [address] [place] [address] Diet controlled gestational diabetes mellitus (GDM) in third trimester*; Encounter for anatomic survey; 31 weeks gestation of ; Supervision of normal first , antepartum; Excessive growth affecting management of in third trimester, single or unspecified fetus; Other specified related conditions, second trimester Allergies No known active allergiesdocumented as of this encounter (statuses as of 11/25/2023) Medications Medication Sig Dispensed Refills Start Date [...] MCG Oral Tablet Take by mouth. Active Health WildcattersTouch Verio Flex System w/Device Kit Use to test blood sugars 4 times daily (fasting, 1 hour after breakfast, lunch, and dinner) 1 Kit 11/07/2023 Active OneTouch Verio In Vitro Strip (Glucose Blood) Use to test blood sugars 4 times daily (fasting, 1 hour after breakfast, lunch, and dinner) 125 Strip 6 11/07/2023 Active Health WildcattersTouch Delica Lancets 30G Use to test blood sugars 4 times daily (fasting, 1 hour after breakfast, lunch, and dinner) 200 Each 6 11/07/2023 Active documented as of this encounter (statuses as of 11/25/2023) Active Problems Problem Noted Date Diagnosed Date [...] 11/11/23: MFM ADAPT consult complete. Enrolled in [employer]. Instructions provided to report blood sugars each week for MFM review. 11/18/2023-RPM-3 of 6 elevated post prandial dinner values. Advised to watch diet. Will review again next week, and if persists, will schedule for follow up ADAPT with maternal medicine nurse practitioner. 11/24/20231221-[id number] blood sugars within normal limits. 2 of 6 elevated post prandial breakfast & lunch readings and 2 of 4 elevated post prandial dinner. Advised to watch diet and keep meal log to try and identify if dietary related. Will review again next week. Last Assessment & Plan: Working with ADAPT. [...] and folate levels and referral to a chemical reclamation equipment operator. If hemoglobin levels are below 8 g/dl, we recommend Maternal Medicine ultrasound for growth every 4 weeks after 24 weeks. Consider a blood transfusion if hemoglobin levels fall below 6 g/dL. ([employer] Obstetricians and Respiratory Physician Practice Bulletin Number 95, September,). Consider Venofer [...] as of this encounter (statuses as of 11/25/2023) Immunizations Name Administration Dates Next Due COVID-19 [...] money to buy more. Never true 09/12/19 Within the past 12 months, t he food you bought just didn't last and you didn't have money to get more. Never true 09/12/2023 [place] Depression Scale Answer Date Recorded [place] Depression Scale Total 5 06/17/2023 The thought [...] Progress Notes * Monse Johnson, DO - 11/25/2023 10:15 AM EDT MATERNAL MEDICINE VISIT Julieta Cordon presented today at 31w4d for an ultrasound and follow-up of her high risk . She was seen for the following indications: Problem List Items Addressed This Visit Supervision of normal first , antepartum Low risk NIPT appreciated. Diet controlled gestational diabetes mellitus (GDM) in third trimester - Primary Working with ADAPT. Excessive growth affecting management of in third trimester CONSIDERATIONS: Reviewed that weight greater than 90%ile [...] delivery plan with her primary OB provider. Other Visit Diagnoses Encounter for anatomic survey 31 weeks gestation of We reviewed today's ultrasound findings. 31w 4d weeks for anatomical survey. No ultrasonic evidence of structural anomalies, however exam limited by advanced gestational age and position. Large AC noted at 99% with overall EFW of 2200 g at 91%. SILVA 12.3 cm. Cephalic presentation. (For full details, please refer to ultrasound report provided separately). Ms. Cordon's questions were answered to her satisfaction. She was advised to contact our officeor her OB provider for any additional questions regarding her . RECOMMENDATIONS: Recommend follow up ultrasound with MFM in 6 weeks for growth secondary to above indications. Thank you for allowing us to participate in the care of this patient. Please call with any questions. I spent a total of 20 minutes on the date of service in preparation, delivery, and documentation ofthe care provided to Julieta Cordon excluding any time spent in the performance of separately billed services. Monse Johnson DO 11/25/2023 10:15 AM documented in this encounter Miscellaneous Notes * Assessment & Plan Note - Monse Johnson DO - 11/25/2023 10:18 AM EDT Associated Problem(s): Excessive growth affecting management of in third trimester CONSIDERATIONS: Reviewed that weight greater than 90%ile [...] delivery plan with her primary OB provider. * Assessment & Plan Note - Monse Johnson DO - 11/25/2023 8:41 AM EDT Associated Problem(s): Supervision of normal first , antepartum Low risk NIPT appreciated. * Assessment & Plan Note - Monse Johnson DO - 11/25/2023 8:41 AM EDT Associated Problem(s): Diet controlled gestational diabetes mellitus (GDM) in third trimester Working with ADAPT. documented in this encounter Plan of Treatment Upcoming Encounters Date Type Department Care Team (Late st Contact Info) Description 12/08/2023 8:00 AM EDT Office Visit Gynecology/Obstetrics [facility] [address] [place] [address] Awilda Retana CRNP [address] [place] [address] 12/12/2023 2:30 PM EDT Pharmacy Pharmacy[address] [id number] Clinic, [place] [address] [place] [address] 12/22/2023 7:45 AM EDT Office Visit Gynecology/Obstetrics [facility] [address] [place] [address] Twila Mclean PA-C [address] [place] [address] 01/01/2024 9:30 AM EDT Office Visit Splash Line Operator Obstetrics Maternal Medicine, [place] [address] [place] [address] Mones Johnson, DO [address] [place] [address] 01/01/2024 9:30 AM EDT Imaging Maternal Medicine Imaging, [place] [address] [place] [address] Scheduled Orders Name Type Priority Associated Diagnoses Orde r Schedule MFM US PREG FOLLOW UP EACH FETUS Medical Imaging Routine Diet controlled gestational diabetes mellitus (GDM) in third trimester Encounter for anatomic survey 31 weeks gestation of Supervision of normal first , antepartum Excessive growth affecting management of in third trimester, single or unspecified fetus Other specified related conditions, second trimester 4 Occurrences starting 11/25/2023 until 01/23/2024 Health Maintenance Due Date Last Done Comments [...] as of this encounter Visit Diagnoses Diagnosis Diet controlled gestational diabetes mellitus (GDM) in third trimester- Primary Encounter for anatomic survey 31 weeks gestation of state, incidental Supervision of normal first , antepartum Excessive growth affecting management of in third trimester, single or unspecified fetus Other specified related conditions, second trimester documented in this encounter Additional Health Concerns Active Problems Noted Date Diagnosed Date OB Reminders 11/03/2023 documented as of this encounter Care Teams Agile Business Analyst Relationship Specialty Start Date End Date Margo Avila DO [address] [facility] [address] [place] [address] PCP - General Pediatrics 04/04/15 documented as of this encounter
--- OUTSIDE RECORDS SUMMARY | 2024-01-16 04:21 | External Medical Summary | Summary of Care ---
Author Name Unknown Organization [facility] Address [address] [place] [facility] [place] [address] Phone [phone] Care Team Providers Care Machine Bander And Cellophaner Helper Name Role Phone AvilaMargo DO Primary Care Provider [phone] Reason for Visit * Reason Comments Procedure Infed Encounter Details Date Type Department Care Team (Latest Contact Info) Description 11/14/2023 12:30 PM EDT Hem/Onc Treatment Hematology/Oncology Treatment, [address] [address] Tammy, Chair 1 Hem On[address] [address] Iron deficiency anemia, unspecified iron deficiency anemia [...] MCG Oral Tablet Take by mouth. Active Growth Oriented Development Software Flex System w/Device Kit Use to test blood sugars 4 times daily (fasting, 1 hour after breakfast, lunch, and dinner) 1 Kit 11/07/2023 Active Growth Oriented Development Software In Vitro Strip (Glucose Blood) Use to test blood sugars 4 times daily (fasting, 1 hour after breakfast, lunch, and dinner) 125 Strip 6 11/07/2023 Active Skipjump Lancets 30G Use to test blood sugars [...] Report levels to MFM (Maternal- Medicine) via [facility]. Recommend nutrition consult with RDN (Registered Dietitian Community Service Officer Coordinator). Lifestyle changes are also indicated including optimizing [...] and folate levels and referral to a ladle cleaner. If hemoglobin levels are below 8 g/dl, we recommend Maternal Medicine ultrasound for growth every 4 weeks after 24 weeks. Consider a blood transfusion if hemoglobin levels fall below 6 g/dL. ([employer] Obstetricians and Outside Medical Sales Representative Practice Bulletin Number 95, September,). Consider Venofer [...] money to get more. Never true 09/12/2023 [place] Depression Scale Answer Date Recorded [place] Depression Scale Total 5 06/17/2023 The thought [...] Eddy, Famotidine IVP administered. Per Awilda Retana GENETIC SCIENTIST, proceed under guidance of Dr. Eddy. 1340- [...] 11/24/2023 10:00 AM EDT Office Visit Gynecology/Obstetrics [facility] [address] [place] [address] Verito Plummer CRNP [address] [place] [address] 11/25/2023 8:30 AM EDT Office Visit Journeyman Welder Obstetrics Maternal Medicine, [place] [address] [place] [address] [facility] [address] [place] [address] 11/25/2023 8:30 AM EDT Imaging Radiology [facility], [place] [address] [place] [address] 12/08/2023 8:00 AM EDT Office Visit Gynecology/Obstetrics [facility] [address] [place] [address] Awilda Retana CRNP [address] [place] [address] Health Maintenance Due Date Last Done Comments [...] documented as of this encounter Care Teams Machine Bander And Cellophaner Helper Relationship Specialty Start Date End Date Margo Avila DO [address] [place] [address] PCP - General Pediatrics 04/04/15 documented as of this encounter
--- OUTSIDE RECORDS SUMMARY | 2024-01-16 04:21 | External Medical Summary | Summary of Care ---
Author Name Unknown Organization [facility] Address [address] [facility] [address] Phone [phone] Care Team Providers Care Swabber Name Role Phone AvilaMargo DO Primary Care Provider [phone] Reason for Visit * Reason Comments Procedure Infed Encounter Details Date Type Department Care Team (Latest Contact Info) Description 11/14/2023 12:30 PM EDT Hem/Onc Treatment Hematology/Oncology Treatment, [address] [address] Tammy, Chair 1 Hem On[address] [address] Iron deficiency anemia, unspecified iron deficiency anemia [...] MCG Oral Tablet Take by mouth. Active SABIA Flex System w/Device Kit Use to test blood sugars 4 times daily (fasting, 1 hour after breakfast, lunch, and dinner) 1 Kit 11/07/2023 Active SABIA In Vitro Strip (Glucose Blood) Use to test blood sugars 4 times daily (fasting, 1 hour after breakfast, lunch, and dinner) 125 Strip 6 11/07/2023 Active SyndicatePlus Lancets 30G Use to test blood sugars [...] Report levels to MFM (Maternal- Medicine) via [facility]. Recommend nutrition consult with RDN (Registered Dietitian Auto Rebuilder). Lifestyle changes are also indicated including optimizing [...] and folate levels and referral to a cotton acreage measurer. If hemoglobin levels are below 8 g/dl, we recommend Maternal Medicine ultrasound for growth every 4 weeks after 24 weeks. Consider a blood transfusion if hemoglobin levels fall below 6 g/dL. ([employer] Obstetricians and Home Lending Officer Practice Bulletin Number 95, September,). Consider Venofer [...] money to get more. Never true 09/12/2023 [place] Depression Scale Answer Date Recorded [place] Depression Scale Total 5 06/17/2023 The thought [...] Eddy, Famotidine IVP administered. Per Awilda Retana QUARRY WORKER, proceed under guidance of Dr. Eddy. [...] 11/24/2023 10:00 AM EDT Office Visit Gynecology/Obstetrics [facility] [address] [place] [address] Verito Plummer CRNP [address] [place] [address] 11/25/2023 8:30 AM EDT Office Visit Pocket Maker Obstetrics Maternal Medicine, [place] [address] [place] [address] Monse Johnson [address] [place], [place] [phone] 11/25/2023 8:30 AM EDT Imaging Radiology [facility], [place] [address] [place], [place] [id number] 12/08/2023 8:00 AM EDT Office Visit Gynecology/Obstetrics [facility] [address] [place] [address] Awilda Retana CRNP [address] [place] [address] 12/12/2023 2:30 PM EDT Pharmacy Pharmacy, [place] [address] [place], [place] [phone] [facility], [facility] [address] [place], [place] [phone] Health Maintenance Due Date Last Done Comments [...] documented as of this encounter Care Teams Swabber Relationship Specialty Start Date End Date Margo Avila DO [address] [place] [address] PCP - General Pediatrics 04/04/15 documented as of this encounter
--- OUTSIDE RECORDS SUMMARY | 2024-01-16 04:21 | External Medical Summary | Summary of Care ---
Author Name Unknown Organization [facility] Address [address] [facility] [address] Phone [phone] Care Team Providers Care Vocational Nursing Instructor Name Role Phone AvilaMargo DO Primary Care Provider [phone] Reason for Visit * Reason Comments DSMT INITIAL * Evaluate & Treat - Unlimited Visits (Within 10 days (routine)) - Authorized Specialty Diagnoses / Procedures Referred By Contac t Referred To Contact Outside Parts Salesman / Nutrition Services Diagnoses Diet controlled gestational diabetes mellitus (GDM) in third trimester Awilda Retana CRNP [address] [place] [address] Referral ID Status Reason Start Date Expiration Date Visits Requested Visits Authorized [id number] Authorized Specialty Services Required 11/07/[phone] Encounter Details Date Type Department Care Team (Late st Contact Info) Description 11/18/2023 3:00 PM EDT Telemedicine Virtual, Nutrition Services [address] [place] [address] Daphne Cash, DEVONTE [address] [place] [address] Diet controlled gestational diabetes mellitus (GDM) in third trimester*; Supervision of normal first , antepartum; Antepartum anemia complicating Allergies No known active allergiesdocumented as of this encounter (statuses as of 11/18/2023) Medications Medication Sig Dispensed Refills Start Date [...] MCG Oral Tablet Take by mouth. Active Semmle Flex System w/Device Kit Use to test blood sugars 4 times daily (fasting, 1 hour after breakfast, lunch, and dinner) 1 Kit 11/07/2023 Active Semmle In Vitro Strip (Glucose Blood) Use to test blood sugars 4 times daily (fasting, 1 hour after breakfast, lunch, and dinner) 125 Strip 6 11/07/2023 Active [employer] DelNapkin Labs Lancets 30G Use to test blood sugars 4 times daily (fasting, 1 hour after breakfast, lunch, and dinner) 200 Each 6 11/07/2023 Active documented as of this encounter (statuses as of 11/18/2023) Active Problems Problem Noted Date Diagnosed Date [...] 11/11/23: MFM ADAPT consult complete. Enrolled in [facility]. Instructions provided to report blood sugars each [...] Report levels to MFM (Maternal- Medicine) via [facility]. Recommend nutrition consult with RDN (Registered Dietitian Racing Secretary And Handicapper). Lifestyle changes are also indicated including optimizing [...] folate levels and referral to a gis developer. If hemoglobin levels are below 8 g/dl, we recommend Maternal Medicine ultrasound for growth every 4 weeks after 24 weeks. Consider a blood transfusion if hemoglobin levels fall below 6 g/dL. ([employer] Bulletin Number 95, September,). Consider Venofer [...] as of this encounter (statuses as of 11/18/2023) Immunizations Name Administration Dates Next Due COVID-19 mRNA, LNP-s, No Pre serve, 2-Dose Series (InflaRx) 07/28/2020,07/07/2020 DTaP Dipth/Tet/Acell Pertussis (Infanrix), Peds 07/21/2000,01/03/1997,01/05/1996,11/03,1995 [...] money to get more. Never true 09/12/2023 Willard Depression Scale Answer Date Recorded Willard Depression Scale Total 5 06/17/2023 The thought [...] No 09/12/2023 Does the household have a [facility] source of income? (Household - for ages [...] on file documented as of this encounter Patient Instructions * Patient Instructions* Patricia Baldwin RDN - 11/18/2023 3:10 PM EDT Nutrition: To improve blood glucose control I will follow meal plan of Breakfast: 15-30 grams carbohydrate Snack: 15-30 grams carbohydrate Lunch: 30-60 grams carbohydrate Snack: 15-30 grams carbohydrate Dinner: 30-60 grams carbohydrate Bedtime snack: 15-30 grams carbohydrate documented in this encounter Progress Notes * Patricia Baldwin RDN - 11/18/2023 3:09 PM EDT DIABETES SELF-MANAGEMENT TRAINING Gestational Diabetes Group Session Name: Julieta Cordon Date: 11/18/2023 Patient location: HOME. I was in a hospital or clinic location. After connecting through televideo,patient was verified with two unique identifiers. Patient (or authorized legal agency service representative) was then informed that this was a Telemedicine visit and being conducted confidentially over secure lines. Methods to assure confidentiality were taken. Patient acknowledged consent and understanding of pr ivacy and security of the Telemedicine visit. The patient agreed to participate. ADA referral in place? Yes What diabetes concerns and/or barriers to care would you like to discuss in your appointment: Diabetes with gestational diabetes. Here for education. What is gestational diabetes? What are the risks to me and my baby? When do I test my blood sugar? Will I need medication for gestational diabetes? What diet do I follow for gestational diabetes? What does exercise do to my blood sugar? Will this go away for me and the baby? What type of diabetes to you have? Gestational Diabetes DSMT Initial Visit Assessment of Content Areas: Choose the answer that represents the participant's competency in each area. All need to be assessed at initial. Areas taught must match intervention. If content area not assessed and/or intervened today, it will be deferred to future session. Diabetes disease process and treatment process: Needs instruction (1) Incorporating nutrition management into lifestyle: Needs instruction (1) Incorporating physical activity into lifestyle: Needs instruction (1) Using medications safely: Needs instruction (1) Monitoring blood glucose, interpreting and using results: Needs instruction (1) Prevention, detection, and treatment of acute complications: Needs instruction (1) Prevention, detection, and treatment of chronic complications: Needs instruction (1) Developing strategies to address psychosocial issues: Needs instruction (1) Developing strategies to promote health/change behavior: Needs instruction (1) Nutrition Diagnosis: Food and Nutrition Related Knowledge Deficit related to limited prior nutrition- related education as evidenced by referral to be seen for gestational diabetes and enrolled in group session for education. DSMT/ Diabetes MNT intervention: Pathophysiology: Defined disease process. Defined and discussed role of insulin resistance. Nutrition: GDM nutrition: Educated on rationale and guidelines of nutritional management of GDM. Emphasis on need for carbohydrate control/consistency with structured meal schedule. Taught participant how to read a food label. Importance of also meeting nutritional needs of reinforced. Stressed importance of avoiding sugar sweetened beverages, fruit juices. Encouraged bedtime snack 8-10 hours before fasting test the next day. Recommended starting meal pattern provided = Breakfast: 15-30 grams carbohydrate Snack: 15-30 grams carbohydrate Lunch: 30-60 grams carbohydrate Snack: 15-30 grams carbohydrate Dinner: 30-60 grams carbohydrate Bedtime snack: 15-30 grams carbohydrate Educated on using the plate method as a guide for balancing meals during Educated on nutrition related items affecting such as calcium, fish, caffeine, herbal supplements, and preventing listeria. Encouraged prenatals with folic acid, potassium iodide, and DHA/EPA. Physical Activity: Educated on the role of physical activity on glucose control. Educated on the options for physical activity given participant's diabetes complications or other health issues. Medication: Reviewed that due to hormonal insulin resistance in , there may be a need for medication to achieve blood glucose levels in target. Monitoring: blood glucose and targets: Educated on blood glucose monitoring and recommended testing times of fasting and 1-OR 2-hour post meals with targets of less than 95 fasting, 1-hour post meal ofless than 140 OR 2-hour post meal of less than 120. Encouraged logging blood glucoses and reported readings to care team. Provided troubleshooting trick/tips for Current Health Dustin (Maternal Medicine) Educated on ways to improve fasting glucose levels Chronic Complications: Educated on the risks of uncontrolled blood glucose during and post for mom and /. Promote health/Change behavior: Reviewed importance of glucose screening after having gestational diabetes. Participant Selected Behavioral Objective: Nutrition: To improve blood glucose control I will follow meal plan of Breakfast: 15-30 grams carbohydrate Snack: 15-30 grams carbohydrate Lunch: 30-60 grams carbohydrate Snack: 15-30 grams carbohydrate Dinner: 30-60 grams carbohydrate Bedtime snack: 15-30 grams carbohydrate Education materials given to participant/caregiver and reviewed during today's visit: Jaime Materials: What is Gestational Diabetes? Healthy Meals for Diabetes Possible Future Topics: Content areas that were not assessed in first visit: Acute complications Psychosocial/healthy coping Time Spent With Patient: Time in: 300 Time out: 3:56 PM Billing: MNT: 2 units This visit was completed as a virtual group session. Plan for Return: 2-4 week return Participant provided with contact information for Diabetes Care and Trauma Nurse. All [facility] providers within the system are able to see ADA education and outcomes within the participant electronic medical record. DEVONTE Moyer RDN, NUTRITION SERVICES VIRTUAL Diabetes Care and Trauma Nurse documented in this encounter Miscellaneous Notes * Pt Handout (on AVS) - Patricia Baldwin RDN - 11/18/2023 3:10 PM EDT Images from the original note were not included. [id number] What Is Gestational Diabetes? Gestational diabetes is a type of diabetes that happens during . Unlike type 1 diabetes, gestational diabetes is not caused by having too little insulin. Instead, hormones made by your placenta keep your body from using insulin as it should. This is called insulin resistance. Blood sugar (glucose) then builds up in your blood instead of being absorbed by the cells in your body and used for energy. This can cause high blood sugar and can cause problems for both you and your baby. You can take steps to control your blood sugar. This will help reduce the risks for you and your baby. Managing gestational diabetes You need to control your blood sugar while you are . Your healthcare team will help you make a plan to do this. This plan will include: Eating the right foods. This is the main way to control your blood sugar. You need to eat a variety of healthy foods each day. To help you plan changes in your diet, you will likely work with a registered dietitian (ESMER). This is an expert on food and nutrition. The dietitian may have you take part in a nutrition program to help you reach your goals. Getting exercise. Your body uses more blood sugar when you exercise. Your healthcare team can help you pick the best kinds of exercise for you. Checking your blood sugar. You will likely need to check your blood sugar at home. You will do this 2 or more times a day. You will likely check your fasting blood sugar and after meal (postprandial) blood sugar. Your healthcare team will teach you how. They will talk with you about your blood sugar goals. Your blood sugar may also be tested every week or so at a clinic. If your blood sugar stays too high, you may need to have insulin shots during your . Risks to your baby If your blood sugar stays high, your baby is at risk for these problems: Your baby may grow too large. If your blood sugar stays too high, your baby may grow too large. This is called macrosomia. This means a baby is too big for a safe vaginal . A large baby may get their shoulder stuck behind the pubic bone during . This is called shoulder dystocia. The baby's arms and shoulders could be injured. This may cause permanent arm damage. The baby may also have low oxygen levels (hypoxia) while they are stuck. Hypoxia can lead to cerebral palsy. In rare cases, it can lead to . Your baby?s organs may not be fully grown at . If you have diabetes, your baby may need to be delivered early. This may be because of problems with the . Or it may be because of risks to you or your baby. If your baby is delivered early, their lungs may not work well. This is called respiratory distress syndrome. Your baby's liver also may not work normally. And your baby may have yellow color in their skin and eyes (jaundice) after . Your baby?s blood sugar may be low after . If your blood sugar is too high, your baby makesextra insulin. The baby will keep making extra insulin right after . Your baby may need to be treated for low blood sugar. Your baby could be stillborn. This is very rare. But your baby could before if your blood sugar stays high for too long. Risks to you If you don?t control your blood sugar, you are more likely to have: High blood pressure. High blood sugar makes you more likely to have high blood pressure during your . This is a danger to your health. It could lead to early delivery for your baby. Infections. High blood sugar makes you more likely to have bladder, kidney, and vaginal infections. Trouble breathing. You may feel short of breath. High blood sugar can cause too much fluid around the baby. This is called polyhydramnios. Your abdomen gets big and pushes up on your lungs. Difficult labor. Your delivery may be harder. And your recovery may take longer. If your blood sugar stays too high, your baby may grow too large. A large baby might cause injury to you during . Or the baby may have to be delivered by section (). This means making a cut (incision) in your abdomen and uterus. A is a common risk of gestational diabetes. Reduce your future risk for type 2 diabetes Women who have gestational diabetes are at higher risk of type 2 diabetes later. You are also at higher risk for gestational diabetes in your next . You can help reduce your risk in these ways: Lose excess weight. Be as active as you can. Eat more fruits and vegetables. Eat fewer processed foods. Get regular blood tests to check for diabetes. Breastfeed your baby. Who is at risk for gestational diabetes? You're more at risk if you: Are overweight Have a family history of diabetes Have had a baby who before Had gestational diabetes in the past Are , , , South or [place] , or How daily issues affect your health Many things in your daily life impact your health. This can include transportation, money problems,housing, access to food, and childcare. If you can?t get to medical appointments, you may not receive the care you need. When money is tight, it may be difficult to pay for medicines. And living far from a grocery store can make it hard to buy healthy food. If you have concerns in any of these or other areas, talk with your healthcare team. They may know of local resources to assist you. Or they may have a staff person who can help. Last Reviewed Date: 10/15/202219995488-5717 [employer]. All rights reserved. This information is not intended as a substitute for professional medical care. Always follow your healthcare professional's instructions. * Pt Handout (on AVS) - Nicolasa Patricia Freeman, DEVONTE - 11/18/2023 3:10 PM EDT Images from the original note were not included. [id number] Healthy Meals for Diabetes Figuring out what to eat can be one of the most confusing parts of diabetes. It will help you to have a meal plan. You can ask your healthcare team to help you make a meal plan that fits your needs. Your meal plan tells you when to eat your meals and snacks, what kinds of foods to eat, and how muchof each food to eat. You don?t have to give up all the foods you like but following some guidelines will set you up for success in managing your diabetes. A healthcare provider will help you develop a meal plan that fits your needs. Choose healthy carbohydrates Starches, sugars, and fiber are all types of carbohydrates (carbs). Carbs can get a bad reputation since they affect your blood sugar the most. It is important to remember that your body benefits from the right amount of healthy carbs. Fiber can help lower your cholesterol and triglycerides. Fiber is also healthy for your heart. You should have 20 to 35 grams of total fiber each day. Fiber comes from plants. Fiber-rich foods include: Whole-grain breads and cereals Nuts Brown rice and quinoa Whole-wheat pasta Fruits and vegetables Beans and peas Keep track of the amount of carbs you eat. This can help you keep the right balance of physical activity and medicine. The amount of carbs needed will vary for each person. It depends on many things such as your health, the medicines you take, and how active you are. Your healthcare team will help you figure out the right amount of carbs for you. You may start with around 45 to 60 grams of carbs per meal, depending on your needs. Here are some examples of foods that have about 15 grams of carbs (1 serving of carbs): 1/2 cup of canned or frozen fruit A small piece of fresh fruit (4 ounces) 1 slice of bread 1/2 cup of oatmeal 1/3 cup of rice 4 to 6 crackers 1/2 Mauritanian muffin 1/2 cup of black beans 1/4 of a large baked potato (3 ounces) 2/3 cup of plain fat-free yogurt 1 cup of soup 1/2 cup of casserole 6 chicken nuggets 7-fjha-odaegu brownie or cake without frosting 2 small cookies 1/2 cup of ice cream or sherbet Choose healthy protein foods Proteins play a moore role in building healthy muscles, bones, skin, and many other parts of your body. Eating protein that's low in fat can help you control your weight. It also helps keep your heart healthy. Low-fat protein foods include: Fish Plant proteins, such as lentils, beans, peas, nuts, and soy products like tofu and soymilk Lean meat with all visible fat removed Poultry with the skin removed Low-fat or nonfat milk, cheese, and yogurt Limit unhealthy fats and sugar Saturated and trans fats are unhealthy for your heart. They raise LDL (bad) cholesterol. Fat is also high in calories. To cut down on unhealthy fats and sugar, limit these foods: Butter or margarine Palm and palm kernel oils and coconut oil Cream Cheese [place] Lunch meats Ice cream Sweet bakery goods such as pies, muffins, and donuts Jams and jellies Candy bars Regular sodas How much to eat The amount of food you eat affects your blood sugar. It also affects your weight. Your healthcare team will tell you how much of each type of food you should eat. Use measuring cups and spoons and a food scale to measure serving sizes. Learn what a correct serving size looks like on your plate. This will help [facility] and can?t measure your servings. For instance, a serving of meat is about the size of the palmof your hand. Eat only the number of servings given on your meal plan for each food. Don?t take seconds. Learn to read food labels. Be sure to look at serving size, total carbohydrates, fiber, calories, sugar, salt, and saturated and trans fats. Look for healthier options such as foods with no added sugar or salt. Plan ahead for parties. Then you can still have a good time without diving into unhealthy food choices. Bring a healthy dish to sifonr. Choose healthy snacks When it comes to snacks, we often think about foods with added sugar and fats. But there are many other options for healthier snack choices. Here are a few snack ideas to choose from: Snacks with less than 5 grams of carbohydrates 1 piece of string cheese 3 celery sticks plus 1 tablespoon of peanut butter 5 mueller tomatoes plus 1 tablespoon of ranch dressing 1 hard-boiled egg 1/4 cup of fresh blueberries 5 baby carrots 1 cup of light popcorn 1/2 cup of sugar-free gelatin 15 almonds Snacks with about 10 to 20 grams of carbohydrates 1/3 cup of hummus plus 1 cup of fresh cut non-starchy vegetables (carrots, green peppers, broccoli, celery, or a mix) 1/2 cup of fresh or canned fruit plus 1/4 cup of cottage cheese 1/2 cup of tuna salad with 4 crackers 2 rice cakes and a tablespoon of peanut butter 1 small apple or orange 3 cups light popcorn 1/2 of a turkey sandwich (1 slice of whole-wheat bread, 2 ounces of turkey, and mustard) Portion sizes are important for controlling your blood sugar and staying at a healthy weight. Stockup on healthy snack foods so you always have them on hand. When to eat Your meal plan will likely include breakfast, lunch, dinner, and some snacks. Try to eat your meals and snacks at about the same times each day. Eat all your meals and snacks. Skipping a meal or snack can make your blood sugar drop too low. It can also cause you to eat too much at the next meal or snack. Then your blood sugar could get toohigh. Be patient It can be stressful trying to figure out what to eat. But over time, you?ll form new habits around your meal plan and healthy guidelines. Then eating right for your blood sugar will be much easier. Last Reviewed Date: 06/16/202319992711-0835 [employer]. All rights reserved. This information is not intended as a substitute for professional medical care. Always follow your healthcare professional's instructions. documented in this encounter Plan of Treatment Upcoming Encounters Date Type Department Care Team (Late st Contact Info) Description 11/20/2023 10:00 AM EDT Pharmacy Pharmacy, [address] [address] Clinic, [facility] [place] [address] [place] [address] 11/24/2023 10:00 AM EDT Office Visit Gynecology/Obstetrics [facility] [address] [facility] [place] [address] Verito Plummer CRNP [address] [place] [id number] 11/25/2023 8:30 AM EDT Office Visit [facility], [place] [address] [place] [address] Monse Johnson, [address] [place] [address] 11/25/2023 8:30 AM EDT [facility] [place] [address] [place] [address] 12/08/2023 8:00 AM EDT Office Visit Gynecology/Obstetrics [facility] [address] [facility] [place] [address] [facility] [address] [facility] [address] Scheduled Referrals Name Type Priority Associated Diagnoses Orde r Schedule DIABETES MANAGEMENT EDUCATION (ADA) REFERRAL Referral Within 10 days (routine) Diet controlled gestational diabetes mellitus (GDM) in third trimester Ordered: 11/07/2023 Health Maintenance Due Date Last Done Comments [...] diabetes mellitus (GDM) in third trimester- Primary Supervision of normal first , antepartum Antepartum anemia complicating Anemia, antepartum documented in this encounter Additional Health Concerns Active Problems Noted Date Diagnosed Date OB Reminders 11/03/2023 documented as of this encounter Care Teams Vocational Nursing Instructor Relationship Specialty Start Date End Date Margo Avila DO [address] [facility] [address] [place] [address] PCP - General Pediatrics 04/04/15 documented as of this encounter
--- OUTSIDE RECORDS SUMMARY | 2024-01-16 04:21 | External Medical Summary | Summary of Care ---
Author Name Unknown Organization [facility] Address [address] [facility] [place] [address] Phone [phone] Care Team Providers Care Housekeeping Laundry Worker Name Role Phone Avila Margo Shari KELLEY Primary Care Provider [phone] Reason for Referral * Evaluate & Treat - Unlimited Visits (Within 10 days (routine)) - Authorized Specialty Diagnoses / Procedures Referred By Bela armstrong Referred To Contact Wire Cutter / Nutrition Services Diagnoses Diet controlled gestational diabetes mellitus (GDM) in third trimester Awilda Retana CRNP [address] [place] [address] Referral ID Status Reason Start Date Expiration Date Visits Requested Visits Authorized [id number] Authorized Specialty Services Required 11/07/[phone] Question Answer Is the patient ? Yes Referral Priority Within 10 days (routine) Where should this appointment be scheduled? [facility] Comments This referral is for Diabetes Self-Management Training (DSMT) by a recognized [place] [employer] (ADA) incinerator operator: Nurse (RN), Registered Dietitian Geriatric Assistant (RDN), and/or Diabetes Medical Nutrition Therapy (MNT) Management (dietitian only). Diabetes educators are responsible for assessing the participant's diabetes education needs, and providing diabetes self-management training in accordance with the standards set by the ADA for DSMT. Any adjustment in diabetes therapy will be made within the guidelines of standards of practice and F[place] approved policies and procedures. I understand that the incinerator operator will keep me informed. Areas of Education: Pathophysiology Nutrition Physical Activity Medications Monitoring Acute Complications Chronic Complications Psychosocial Management Promote Health/Behavior Change Participant will be offered 1:1 education training if there is a lack of classes available within 2 months. Providers can also order 1:1 training if indicated for participant for the following reasons: 1:1 Training for Insulin Initiation Participant Inappropriate for Class Setting By my electronic signature, I understand that my patient will be offered the comprehensive ADA content area above unless deemed not appropriate of I specify otherwise here: * Evaluate & Treat - Unlimited Visits (Within 10 days (routine)) - Authorized Specialty Diagnoses / Procedures Referred By Bela armstrong Referred To Contact Obstetrics/Gynecology / Maternal Medicine Diagnoses Diet controlled gestational diabetes mellitus (GDM) in third trimester Awilda Retana CRNP [address] [place] [address] Referral ID Status Reason Start Date Expiration Date Visits Requested Visits Authorized [id number] Authorized Specialty Services Required 11/07/2023 999 999 Question Answer Referral Priority Within 10 days (routine) Has the patient had a viability scan? Yes Date performed 06/17/2023 Location performed Radiology Reason for referral Diabetes Diabetes type Gestational Where should this appointment be scheduled? [facility] Comments /Para: LMP: Patient's last menstrual period was 04/18/2023. Patient is . TALI: 01/23/2024, by Last Menstrual Period Pre-Gravid BMI: Could not be calculated Reason for Visit * Reason Onset Date Comments Abnormal Test Results 11/07/2023 Encounter Details Date Type Department Care Team (Late st Contact Info) Description 11/07/2023 Telephone Gynecology/Obstetrics Josefa Barragan [address] [place] [address] Awilda Retana CRNP [address] [place] [address] Abnormal Test Results Allergies No known active allergiesdocumented as of this encounter (statuses as of 12/02/2023) Medications Medication Sig Dispensed Refills Start Date [...] MCG Oral Tablet Take by mouth. Active MerkuTouch Verio Flex System w/Device Kit Use to test blood sugars 4 times daily (fasting, 1 hour after breakfast, lunch, and dinner) 1 Kit 11/07/2023 Active MerkuTouch Verio In Vitro Strip (Glucose Blood) Use to test blood sugars 4 times daily (fasting, 1 hour after breakfast, lunch, and dinner) 125 Strip 6 11/07/2023 Active OneTouch Delica Lancets 30G Use to test blood sugars 4 times daily (fasting, 1 hour after breakfast, lunch, and dinner) 200 Each 6 11/07/2023 Active documented as of this encounter (statuses as of 12/02/2023) Active Problems Problem Noted Date Diagnosed Date [...] up ADAPT with maternal medicine nurse practitioner. 11/24/20234212-UPE-flmmwzz blood sugars within normal limits. 2 of 6 elevated post prandial breakfast & lunch readings and 2 of 4 elevated post prandial dinner. Advised to watch diet and keep meal log to try and identify if dietary related. Will review again next week. 12/01/20233582-CYD-dojivlz stable (rare elevations mostly due to dietary choices (wings, fries, cereal). Last Assessment & Plan: Working with ADAPT. [...] and folate levels and referral to a water resources program director. If hemoglobin levels are below 8 g/dl, we recommend Maternal Medicine ultrasound for growth every 4 weeks after 24 weeks. Consider a blood transfusion if hemoglobin levels fall below 6 g/dL. ([employer] and Feed Inspection Supervisor Practice Bulletin Number 95, September,). Consider Venofer [...] as of this encounter (statuses as of 12/02/2023) Immunizations Name Administration Dates Next Due COVID-19 mRNA, LNP-s, No Pre serve, 2-Dose Series (Foodist) 07/28/2020,07/07/2020 DTaP Dipth/Tet/Acell Pertussis (Infanrix), Peds 07/21/2000,01/03/1997,01/05/1996,11/03,1995 [...] money to get more. Never true 09/12/2023 [place] Depression Scale Answer Date Recorded [place] Depression Scale Total 5 06/17/2023 The thought [...] No 09/12/2023 Does the household have a [facility] source of income? (Household - for ages [...] encounter Miscellaneous Notes * Telephone Encounter - Daphne Munoz RN - 11/07/2023 1:42 PM EDT Pt is aware. Pharmacy updated. * Telephone Encounter - Awilda Retana CRNP - 11/07/2023 1:19 PM EDT Please notify pt that she failed her 3hr GTT. She has gestational diabetes. Will need to check blood sugar 4 times a day. Once notified and agreeable, route back and I will place orders for glucometer and supplies, as well as MFM referral for ADAPT program for management of gdm. documented in this encounter Plan of Treatment Upcoming Encounters Date Type Department Care Team (Late st Contact Info) Description 12/08/2023 8:00 AM EDT Office Visit Gynecology/Obstetrics Josefa Barragan [address] [place] [address] Awilda Retana CRNP [address] [place] [address] 12/12/2023 2:30 PM EDT Pharmacy Pharmacy, [place] [address] [place] [address] [facility] [address] [place] [address] 12/22/2023 7:45 AM EDT Office Visit Gynecology/Obstetrics Josefa Orrs [address] [place] [address] Twila Mclean PA-C [address] [place] [address] 01/01/2024 9:30 AM EDT Office Visit Cw Operator [facility]st[facility] [address] [place] [address] Monse Johnson, DO [address] [facility] [place] [address] 01/01/2024 9:30 AM EDT Imaging Maternal Medicine Imaging, [address] [place] [phone] Pending Results Name Type Priority Associated Diagnoses Date /Time MFM US MATERNAL 1ST FETUS Medical Imaging Routine Diet controlled gestational diabetes mellitus (GDM) in third trimester Other specified related conditions, third trimester 11/25/2023 9:48 AM EDT Scheduled Orders Name Type Priority Associated Diagnoses Orde r Schedule MFM US MATERNAL 1ST FETUS Medical Imaging Routine Diet controlled gestational diabetes mellitus (GDM) in third trimester Other specified related conditions, third trimester Expected: 11/07/2023, Expires: 12/07/2024 Scheduled Referrals Name Type Priority Associated Diagnoses Orde r Schedule MATERNAL MEDICINE REFERRAL OP Referral Within 10 days (routine) Diet controlled gestational diabetes mellitus (GDM) in third trimester Ordered: 11/07/2023 DIABETES MANAGEMENT EDUCATION (ADA) REFERRAL Referral Within [...] diabetes mellitus (GDM) in third trimester- Primary Other specified related conditions, third trimester documented in this encounter Additional Health Concerns Active Problems Noted Date Diagnosed Date OB Reminders 11/03/2023 documented as of this encounter Care Teams Housekeeping Laundry Worker Relationship Specialty Start Date End Date Margo Avila DO [address] [facility] [address] [place] [address] PCP - General Pediatrics 04/04/15 documented as of this encounter
--- OUTSIDE RECORDS SUMMARY | 2024-01-16 04:21 | External Medical Summary | Summary of Care ---
Author Name Unknown Organization [facility] Address [address] [facility] [address] Phone [phone] Care Team Providers Care Parent Coach Name Role Phone Margo Avila Shari KELLEY Primary Care Provider [phone] Reason for Visit * Reason Comments Return Visit Encounter Details Date Type Department Care Team (Late st Contact Info) Description 12/08/2023 8:00 AM EDT Office Visit Gynecology/Obstetric s Josefa Barragan [address] [place] [address] Awilda Retana CRNP [address] [place] [address] Supervision of normal first , antepartum*; Antepartum anemia complicating ; Diet controlled gestational diabetes mellitus (GDM) in third trimester; Excessive growth affecting management of in third trimester, single or unspecified fetus; Need for RSV immunization Allergies No known active allergiesdocumented as of this encounter (statuses as of 12/08/2023) Medications Medication Sig Dispensed Refills Start Date [...] MCG Oral Tablet Take by mouth. Active CasualingTouch Verio Flex System w/Device Kit Use to test blood sugars 4 times daily (fasting, 1 hour after breakfast, lunch, and dinner) 1 Kit 11/07/2023 Active CasualingTouch Verio In Vitro Strip (Glucose Blood) Use to test blood sugars 4 times daily (fasting, 1 hour after breakfast, lunch, and dinner) 125 Strip 6 11/07/2023 Active CasualingTouch Delica Lancets 30G Use to test blood sugars 4 times daily (fasting, 1 hour after breakfast, lunch, and dinner) 200 Each 6 11/07/2023 Active documented as of this encounter (statuses as of 12/08/2023) Active Problems Problem Noted Date Diagnosed Date [...] up ADAPT with maternal medicine nurse practitioner. 11/24/20238706-IPQ-jtbrzom blood sugars within normal limits. 2 of 6 elevated post prandial breakfast & lunch readings and 2 of 4 elevated post prandial dinner. Advised to watch diet and keep meal log to try and identify if dietary related. Will review again next week. 12/01/20231199-UOI-saxpufz stable (rare elevations mostly due to dietary [...] and folate levels and referral to a grounds and nursery specialist. If hemoglobin levels are below 8 g/dl, we recommend Maternal Medicine ultrasound for growth every 4 weeks after 24 weeks. Consider a blood transfusion if hemoglobin levels fall below 6 g/dL. ([employer]ians and Jboss Architect Practice Bulletin Number 95, September,). Consider Venofer [...] as of this encounter (statuses as of 12/08/2023) Immunizations Name Administration Dates Next Due COVID-19 [...] money to get more. Never true 09/12/2023 [place] Depression Scale Answer Date Recorded [place] Depression Scale Total 5 06/17/2023 The thought [...] No 09/12/2023 Does the household have a [facility] source of income? (Household - for ages [...] Sign Reading Time Taken Comments Blood Pressure 98/56 12/08/2023 7:45 AM EDT Pulse - - Temperature - - Respiratory Rate - - Oxygen Saturation - - Inhaled Oxygen Concentration - - Weight 62.6 kg (138 lb) 12/08/2023 7:45 AM EDT Height 157.5 cm (5' 2") 12/08/2023 7:45 AM EDT Body Mass Index 25.24 12/08/2023 7:45 AM EDT documented in this encounter Progress Notes * Awilda Retana CRNP - 12/08/2023 8:09 AM EDT 33w3d No concerns. Had iron infusion-- mild reaction for which she was given IV benadryl which resolved symptoms. Has phone call scheduled on Friday, per her chart. Still having some elevated blood sugars, trying to eat as healthy as she can. Following with ADAPT.Still diet controlled GDM. Baby LGA on last growth with MFM, has next appt scheduled. RSV vaccine today. DARLINE Garcia documented in this encounter Nursing Notes * Svetlana Allen LPN - 12/08/2023 8:19 AM EDT Patient here for rsv injection. Patient doing well no complaints. Injection given IM as ordered. Patient tolerated well. Patient to follow up as directed. Patient instructed to call if any complications. Patient verbalized understanding of instructions given and her follow up appt for CARMEN Injection site: Left Deltoid Medication Source: Dispensed stock medication * Svetlana Allen LPN - 12/08/2023 7:49 AM EDT 33w3d Denies concerns Given labor instructions Thinks she is due for repeat cbc after IV iron documented in this encounter Plan of Treatment Upcoming Encounters Date Type Department Care Team (Late st Contact Info) Description 12/12/2023 2:30 PM EDT Pharmacy Pharmacy, [place] [address] [facility] [place] [address] Clinic, Anemia [address] [facility] [place] [address] 12/22/2023 7:45 AM EDT Office Visit Gynecology/Obstetrics [facility] [address] [facility] [place] [address] Twila Mclean PA-C [address] [place] [address] 01/01/2024 9:30 AM EDT Office Visit Grout Worker [facility]stetrics [facility] [address] [place] [address] Monse Johnson, DO [address] [place] [address] 01/01/2024 9:30 AM EDT Imaging Maternal Medicine Imaging, [facility] [address] [place] [address] 01/05/2024 7:45 AM EDT Office Visit Gynecology/Obstetrics [facility] [address] [place] [address] Twila Mclean PA-C [address] [place] [address] Health Maintenance Due Date Last Done Comments [...] in third trimester, single or unspecified fetus Need for RSV immunization Need for prophylactic vaccination and inoculation against respiratory syncytial virus documented in this encounter Additional Health Concerns Active Problems Noted Date Diagnosed Date OB Reminders 11/03/2023 documented as of this encounter Care Teams Parent Coach Relationship Specialty Start Date End Date Margo Avila DO [address] [facility] [address] [facility] [place] [address] PCP - General Pediatrics 04/04/15 documented as of this encounter
--- OUTSIDE RECORDS SUMMARY | 2024-01-16 04:21 | External Medical Summary | Summary of Care ---
Author Name Unknown Organization [facility] Address [address] [facility] [place] [address] Phone [phone] Care Team Providers Care Soda Column Operator Name Role Phone AvilaMargo DO Primary Care Provider [phone] Reason for Visit * Reason Comments Procedure Infed Encounter Details Date Type Department Care Team (Latest Contact Info) Description 11/14/2023 12:30 PM EDT Hem/Onc Treatment Hematology/Oncology Treatment, [address] [address] Tammy, Chair 1 Hem Onc [address] [address] Iron deficiency anemia, unspecified iron deficiency anemia [...] MCG Oral Tablet Take by mouth. Active Helpa Flex System w/Device Kit Use to test blood sugars 4 times daily (fasting, 1 hour after breakfast, lunch, and dinner) 1 Kit 11/07/2023 Active Helpa In Vitro Strip (Glucose Blood) Use to test blood sugars 4 times daily (fasting, 1 hour after breakfast, lunch, and dinner) 125 Strip 6 11/07/2023 Active Wish Days Lancets 30G Use to test blood sugars [...] Report levels to MFM (Maternal- Medicine) via [facility]. Recommend nutrition consult with RDN (Registered Dietitian Proof Tester). Lifestyle changes are also indicated including optimizing [...] and folate levels and referral to a optical glass silverer. If hemoglobin levels are below 8 g/dl, we recommend Maternal Medicine ultrasound for growth every 4 weeks after 24 weeks. Consider a blood transfusion if hemoglobin levels fall below 6 g/dL. ([employer] Obst[employer]ians and Institutional Research Coordinator Practice Bulletin Number 95, September,). Consider Venofer [...] money to get more. Never true 09/12/2023 [place] Depression Scale Answer Date Recorded [place] Depression Scale Total 5 06/17/2023 The thought [...] Eddy, Famotidine IVP administered. Per Awilda Retana PASSENGER BRAKEMAN, proceed under guidance of Dr. Eddy. [phone] [...] 11/24/2023 10:00 AM EDT Office Visit Gynecology/Obstetrics [facility] [address] [place] [address] Verito Plummer CRNP [address] [place] [address] 11/25/2023 8:30 AM EDT Office Visit Fire Boat Engineer Obstetrics Maternal Medicine, [place] [address] [place] [address] Monse Johnson [address] [place], [place] [id number] 11/25/2023 8:30 AM EDT Imaging Radiology [facility], [place] [address] [place], [place] [id number] 12/08/2023 8:00 AM EDT Office Visit Gynecology/Obstetrics [facility] [address] [place] [address] Awilda Retana CRNP [address] [place] [address] 12/12/2023 2:30 PM EDT Pharmacy Pharmacy, [place] [address] [place], [place] [phone] [facility], [facility] [address] [place], [place] [phone] Health Maintenance Due Date Last Done Comments [...] documented as of this encounter Care Teams Soda Column Operator Relationship Specialty Start Date End Date Margo Avila DO [address] [place] [address] PCP - General Pediatrics 04/04/15 documented as of this encounter
--- OUTSIDE RECORDS SUMMARY | 2024-01-16 04:21 | External Medical Summary | Summary of Care ---
Author Name Unknown Organization [facility] Address [address] [place] [address] Phone [phone] Care Team Providers Care Redevelopment Specialist Name Role Phone Avila Margo Shari KELLEY Primary Care Provider [phone] Reason for Referral * Evaluate & Treat - Unlimited Visits (Within 10 days (routine)) - Authorized Specialty Diagnoses / Procedures Referred By Bela t Referred To Contact Pharmacist / Pharmacy Diagnoses YADIRA (iron deficiency anemia) Awilda Retana CRNP [address] [place] [address] Referral ID Status Reason Start Date Expiration Date Visits Requested Visits Authorized [id number] Authorized Specialty Services Required 11/04/2023 05/02/2024 99 99 Question Answer Referral Priority Within 10 days (routine) [facility] Referring Provider Role: Specialist Specialty: glue drier operator Reason for Referral: Anemia Comments Pharmacist Medication Therapy Management: Iron deficiency anemia Ashish Carlton RN Reason for Visit * Reason Onset Date Comments Blood Management Program 11/04/2023 Encounter Details Date Type Department Care Team (Late st Contact Info) Description 11/04/2023 Telephone Patient Blood Management, [place] [address] [place] [address] Awilda Retana CRNP [address] [place] [address] Blood Management Program Allergies No known active allergiesdocumented as of [...] Additional Information Patient not taking.Reported on 10/13/2023 documented as of this encounter (statuses as [...] Recommend nutrition consult with RDN (Registered Dietitian Campground Cleaning Attendant). Lifestyle changes are also indicated including optimizing [...] and folate levels and referral to a supervising librarian. If hemoglobin levels are below 8 g/dl, we recommend Maternal Medicine ultrasound for growth every 4 weeks after 24 weeks. Consider a blood transfusion if hemoglobin levels fall below 6 g/dL. ([employer] Obstetricians and Acute Care Registered Nurse Practice Bulletin Number 95, September,). Consider Venofer [...] mRNA, LNP-s, No Pre serve, 2-Dose Series ([employer]) 07/28/2020,07/07/2020 DTaP Dipth/Tet/Acell Pertussis (Infanrix), Peds 07/21/2000,01/03/1997,01/05/1996,11/03,1995 [...] Influenza Virus Vac cine, Unspecified Formulation 01/08/2013 TDAP, Age 7 and older, IM (Adacel) [...] money to get more. Never true 09/12/2023 [place] Depression Scale Answer Date Recorded [place] Depression Scale Total 5 06/17/2023 The thought [...] encounter Miscellaneous Notes * Telephone Encounter - Ashish Carlton RN - 11/04/2023 8:52 AM EDT Recommend IV iron per OB MTM guidelines. Patient agreeable, prefers infusion at [facility]. documented in this encounter Plan of Treatment Upcoming Encounters Date Type Department Care Team (Late st Contact Info) Description 11/18/2023 3:00 PM EDT Telemedicine Virtual, Nutrition Services [address] [place] [address] Daphne Cash, DEVONTE [address] [place] [address] [place] [address] Arrived 11/20/2023 10:00 AM EDT Pharmacy Pharmacy, [place] [address] [place] [address] Clinic, [facility] [address] [place] [address] 11/24/2023 10:00 AM EDT Office Visit Gynecology/Obstetrics [facility] [address] [place] [address] Verito Plummer CRNP [address] [place] [address] 11/25/2023 8:30 AM EDT Office Visit Tibco Developer Obstetrics Maternal Medicine, [place] [address] [place] [address] Monse Johnson, [address] [place] [address] 11/25/2023 8:30 AM EDT Imaging Radiology [facility], [place] [address] [place] [address] 12/08/2023 8:00 AM EDT Office Visit Gynecology/Obstetrics [facility] [address] [place] [address] Awilda Retana CRNP [address] [place] [address] Scheduled Referrals Name Type Priority Associated Diagnoses Orde r Schedule PHARMACIST MEDS THERAPY MGMT REFERRAL OP Referral Within 10 days (routine) YADIRA (iron deficiency anemia) Ordered: 11/04/2023 Health Maintenance Due Date Last Done Comments [...] as of this encounter Visit Diagnoses Diagnosis YADIRA (iron deficiency anemia)- Primary Iron deficiency anemia, unspecified documented in this encounter Additional Health Concerns Active Problems Noted Date Diagnosed Date OB Reminders 11/03/2023 documented as of this encounter Care Teams Redevelopment Specialist Relationship Specialty Start Date End Date Margo Avila DO [address] [facility] [address] [place] [address] PCP - General Pediatrics 04/04/15 documented as of this encounter
--- OUTSIDE RECORDS SUMMARY | 2024-01-16 04:22 | External Medical Summary | Summary of Care ---
Author Name Unknown Organization [facility] Address [address] [place] [address] Phone [phone] Care Team Providers Care Bisque Placer Name Role Phone AvilaMargo murillo Shari KELLEY Primary Care Provider [phone] Reason for Visit * Reason Onset Date Comments Home Monitoring Orders Only 11/12/2023 Encounter Details Date Type Department Care Team (Late st Contact Info) Description 11/12/2023 Home Monitoring Care Coordination [address], [place] [id number] Melissa [address] CRNP [address], [place] [id number] Diet controlled gestational diabetes mellitus (GDM) in third trimester* Allergies No known active allergiesdocumented as of this encounter (statuses as of 11/12/2023) Medications Medication Sig Dispensed Refills Start Date [...] MCG Oral Tablet Take by mouth. Active Maaguzi Flex System w/Device Kit Use to test blood sugars 4 times daily (fasting, 1 hour after breakfast, lunch, and dinner) 1 Kit 11/07/2023 Active Maaguzi In Vitro Strip (Glucose Blood) Use to test blood sugars 4 times daily (fasting, 1 hour after breakfast, lunch, and dinner) 125 Strip 6 11/07/2023 Active eMar Lancets 30G Use to test blood sugars 4 times daily (fasting, 1 hour after breakfast, lunch, and dinner) 200 Each 6 11/07/2023 Active documented as of this encounter (statuses as of 11/12/2023) Active Problems Problem Noted Date Diagnosed Date [...] blood sugars each week for MFM review. Last Assessment & Plan: CONSIDERATIONS: Reviewed etiology [...] Recommend nutrition consult with RDN (Registered Dietitian Tank Car Loader). Lifestyle changes are also indicated including optimizing [...] and folate levels and referral to a sawmill hand. If hemoglobin levels are below 8 g/dl, we recommend Maternal Medicine ultrasound for growth every 4 weeks after 24 weeks. Consider a blood transfusion if hemoglobin levels fall below 6 g/dL. ([employer] Practice Bulletin Number 95, September,). Consider Venofer [...] as of this encounter (statuses as of 11/12/2023) Immunizations Name Administration Dates Next Due COVID-19 mRNA, LNP-s, No Pre serve, 2-Dose Series (Pfizer) 07/28/2020,07/07/2020 DTaP Dipth/Tet/Acell Pertussis (Infanrix), Peds 07/21/2000,01/03/1997,01/05/1996,11/03,1995 HPV Vaccine, 4-Valent 2011,02/27/2011,12/15 Haemophilius B (HIB), unspecified 01/10/1997 Hepatitis A, Ped/Adol., 18 y ear and below, 2-Dose 06/23/2008,03/03/2007 Hepatitis B, 0-19 yrs 01/05/1996,1995,06/16 IPV - Polio Virus Vaccine (Inact) 07/21/2000 MMR - Measles/Mumps/Rubella Vaccine 07/08/2006,0 10/09/1999 Meningococcal MCV4P Conjugat e Vaccine (Menactra) 01/08/2013,03/03/2007 OPV - Polio Virus Vaccine (Oral) 01/05/1996,10/16,1995 Seasonal Influenza Intranasal 01/08/2013, 011,12/20/2009 Seasonal Influenza Virus Vac cine, Unspecified Formulation [...] money to get more. Never true 09/12/2023 [place] Depression Scale Answer Date Recorded [place] Depression Scale Total 5 06/17/2023 The thought [...] as of this encounter Progress Notes * [facility] Chair Assembler - 11/12/2023 9:35 AM EDT Patient has been successfully enrolled to the [id number] Diabetes Management in program. Standard alarm settings have been set as follows: Singular glucose level > 200 Singular glucose level < 60 Patient has been advised to take blood sugar four times a day (fasting upon waking, and one hour after each meal). Patient has been oriented to remote patient monitoring, assisted with initial device set-up, and provided with instruction and education regarding the program. Patient understands that this monitoring should not be used as a replacement for emergency and/or urgent care. If patient experiences any urgent symptoms, they are aware to call office/orthodontic assistant provider for additional instructions. In emergency situations, they will report directly to the ED for further evaluation. If you would like to customize the alert parameters and/or instructions for this patient, please let me know and we can have them changed. documented in this encounter Plan of Treatment Upcoming Encounters Date Type Department Care Team (Late st Contact Info) Description 11/18/2023 3:00 PM EDT Telemedicine Virtual, Nutrition Services [address] [facility] [place] [address] Daphne Cash, RDN [address] [place] [address] 11/20/2023 10:00 AM EDT Pharmacy Pharmacy, [place] [address] [place] [address] [facility], [facility] [address] [place] [address] 11/24/2023 10:00 AM EDT Office Visit Gynecology/Obstetrics [facility] [address] [place] [address] Verito Plummer CRNP [address] [place] [address] 11/25/2023 8:30 AM EDT Office Visit Bean Weigher Obstetrics Maternal Medicine, [place] [address] [place] [address] Monse Johnson [address] [place] [address] 11/25/2023 8:30 AM EDT Imaging Rad[facility], [place] [address] [place] [address] 12/08/2023 8:00 AM EDT Office Visit Gynecology/Obstetrics [facility] [address] [place] [address] Awilda Retana CRNP [address] [place] [address] Health Maintenance Due Date Last Done Comments Depression Screening 04/01/2015 04/01/2014 COVID-19 Vaccine ( season) 2022 07/28/2020, 07/07/2020 Influenza Vaccine (FLU shot) (#1) [...] diabetes mellitus (GDM) in third trimester- Primary documented in this encounter Additional Health Concerns Active Problems Noted Date Diagnosed Date OB Reminders 11/03/2023 documented as of this encounter Care Teams Bisque Placer Relationship Specialty Start Date End Date Margo Avila DO [address] [place] [address] PCP - General Pediatrics 04/04/15 documented as of this encounter
--- OUTSIDE RECORDS SUMMARY | 2024-01-16 04:22 | External Medical Summary | Summary of Care ---
Author Name Unknown Organization [facility] Address [address] [place] [address] Phone [phone] Care Team Providers Care Roof Foreman Name Role Phone AvilaMargo murillo Shari KELLEY Primary Care Provider [phone] Reason for Visit * Reason Onset Date Comments Home Monitoring Orders Only 11/12/2023 Encounter Details Date Type Department Care Team (Late st Contact Info) Description 11/12/2023 Home Monitoring Care Coordination [address] [place], [place] [phone] Melissa [address] CRNP [address] [place], [place] [address] Diet controlled gestational diabetes mellitus (GDM) in [...] MCG Oral Tablet Take by mouth. Active [employer] Innov[employer] Flex System w/Device Kit Use to test blood sugars 4 times daily (fasting, 1 hour after breakfast, lunch, and dinner) 1 Kit 11/07/2023 Active [employer] In Vitro Strip (Glucose Blood) Use to test blood sugars 4 times daily (fasting, 1 hour after breakfast, lunch, and dinner) 125 Strip 6 11/07/2023 Active [employer] Lancets 30G Use to test blood [...] Recommend nutrition consult with RDN (Registered Dietitian Try Out Person). Lifestyle changes are also indicated including optimizing [...] and folate levels and referral to a desk reporter. If hemoglobin levels are below 8 g/dl, we recommend Maternal Medicine ultrasound for growth every 4 weeks after 24 weeks. Consider a blood transfusion if hemoglobin levels fall below 6 g/dL. ([employer]st[employer]ians and Statistical Developer Practice Bulletin Number 95, September,). Consider Venofer [...] money to get more. Never true 09/12/2023 [place] Depression Scale Answer Date Recorded [place] Depression Scale Total 5 06/17/2023 The thought [...] Telemedicine Virtual, Nutrition Services [address] [place] [address] Daphne Cash, RDN [address] [place] [place] [address] [place] [address] 11/20/2023 10:00 AM EDT Pharmacy Pharmacy, [address] [address] 11/24/2023 10:00 AM EDT Office Visit Gynecology/Obstetrics [facility] [address] [place] [address] BackerVerito CRNP [address] [place] [address] 11/25/2023 8:30 AM EDT Office Visit Creative Services Manager Obstetrics Maternal Medicine, [address] [address] Monse Johnson DO [address] [place] [address] 11/25/2023 8:30 AM EDT Imaging Radiology [facility], [place] [address] [address] [facility] [place] [address] 12/08/2023 8:00 AM EDT Office Visit Gynecology/Obstetrics Josefa Barragan [address] [place] [address] Awilda Retana CRNP [address] [place] [address] Health Maintenance Due Date Last Done Comments [...] Author Reminders Care Plan OB Reminders No Slick, Provider documented as of this encounter Medical Devices Not on filedocumented as of this encounter Visit Diagnoses Diagnosis Diet controlled gestational diabetes mellitus (GDM) in third trimester- Primary documented in this encounter Additional Health Concerns Active Problems Noted Date Diagnosed Date OB Reminders 11/03/2023 documented as of this encounter Care Teams Roof Foreman Relationship Specialty Start Date End Date Margo Avila DO [address] [place] [address] PCP - General Pediatrics 04/04/15 documented as of this encounter
--- OUTSIDE RECORDS SUMMARY | 2024-01-16 04:22 | External Medical Summary | Summary of Care ---
Author Name Unknown Organization [facility] Address [address] [place] [facility] [place] [address] Phone [phone] Care Team Providers Care Agricultural Services Director Name Role Phone AvilaMargo DO Primary Care Provider Reason for Visit * Reason Comments Procedure Infed Encounter Details Date Type Department Care Team (Latest Contact Info) Description 11/14/2023 12:30 PM EDT Hem/Onc Treatment Hematology/Oncology Treatment, [address] [address] Tammy, Chair 1 Hem On[address] [address] Iron deficiency anemia, unspecified iron deficiency anemia [...] MCG Oral Tablet Take by mouth. Active [employer] Information Flex System w/Device Kit Use to test blood sugars 4 times daily (fasting, 1 hour after breakfast, lunch, and dinner) 1 Kit 11/07/2023 Active Sun[employer] Information In Vitro Strip (Glucose Blood) Use to test blood sugars 4 times daily (fasting, 1 hour after breakfast, lunch, and dinner) 125 Strip 6 11/07/2023 Active Par[employer]ol [employer] Lancets 30G Use to test blood sugars [...] Recommend nutrition consult with RDN (Registered Dietitian Credit Verification Clerk). Lifestyle changes are also indicated including optimizing [...] and folate levels and referral to a hotel or motel room service supervisor. If hemoglobin levels are below 8 g/dl, we recommend Maternal Medicine ultrasound for growth every 4 weeks after 24 weeks. Consider a blood transfusion if hemoglobin levels fall below 6 g/dL. ([employer]st[employer]ians and Knitter Helper Practice Bulletin Number 95, September,). Consider Venofer [...] money to get more. Never true 09/12/2023 [place] Depression Scale Answer Date Recorded [place] Depression Scale Total 5 06/17/2023 The thought [...] Eddy, Famotidine IVP administered. Per Awilda Retana CALIBRATION TECHNICIAN, proceed under guidance of Dr. Eddy. [phone] [...] Solu-Cortef and Pepcid given IV.Dr. Eddy at [facility] to assess patient. Patient able to speak in full sentences. Awilda GREGOROI notified of reaction and plan of Dr. [...] Telemedicine Virtual, Nutrition Services [address] [place] [address] Daphne Cash RDN [address] [place] [address] Arrived 11/20/2023 10:00 AM EDT Pharmacy Pharmacy, [place] [address] [place] [address] Clinic, [facility] [address] [place] [address] 11/24/2023 10:00 AM EDT Office Visit Gynecology/Obstetrics [facility] [address] [facility] [place] [id number] Verito Plummer CRNP [address] [facility] [place] [address] 11/25/2023 8:30 AM EDT Office Visit Project Coach Obstetrics Maternal Medicine, [place] [address] [place] [address] Monse Johnson, [address] [place] [address] 11/25/2023 8:30 AM EDT Imaging Radiology [place] [address] [place] [address] 12/08/2023 8:00 AM EDT Office Visit Gynecology/Obstetrics [facility] [address] [place] [address] Awilda Retana CRNP [facility] [address] Health Maintenance Due Date Last Done Comments [...] documented as of this encounter Care Teams Agricultural Services Director Relationship Specialty Start Date End Date Margo Avila DO [address] [facility] [address] [place] [address] PCP - General Pediatrics 04/04/15 documented as of this encounter
--- OUTSIDE RECORDS SUMMARY | 2024-01-16 04:22 | External Medical Summary | Summary of Care ---
Author Name Unknown Organization [facility] Address [address] [facility] [address] Phone [phone] Care Team Providers Care Fixture Maker Name Role Phone Avila Margo Shari KELLEY Primary Care Provider [phone] Reason for Visit * Reason Onset Date Comments Medication Management 11/12/2023 InFed Encounter Details Date Type Department Care Team (Late st Contact Info) Description 11/12/2023 Telephone Hematology/Oncology Treatment, [place] [address] [place] [address] Awilda Retana CRNP [address] [place] [address] Medication Management (InFed) Allergies No known active allergiesdocumented as of [...] MCG Oral Tablet Take by mouth. Active [employer] Flex System w/Device Kit Use to test blood sugars 4 times daily (fasting, 1 hour after breakfast, lunch, and dinner) 1 Kit 11/07/2023 Active [employer] In Vitro Strip (Glucose Blood) Use to test blood sugars 4 times daily (fasting, 1 hour after breakfast, lunch, and dinner) 125 Strip 6 11/07/2023 Active Hive [employer] Lancets 30G Use to test blood sugars [...] Recommend nutrition consult with RDN (Registered Dietitian Animal Herder). Lifestyle changes are also indicated including optimizing [...] and folate levels and referral to a oyster shipper. If hemoglobin levels are below 8 g/dl, we recommend Maternal Medicine ultrasound for growth every 4 weeks after 24 weeks. Consider a blood transfusion if hemoglobin levels fall below 6 g/dL. ([employer]stetricians and Central Office Equipment Engineer Practice Bulletin Number 95, September,). Consider Venofer [...] money to get more. Never true 09/12/2023 [place] Depression Scale Answer Date Recorded [place] Depression Scale Total 5 06/17/2023 The thought [...] encounter Miscellaneous Notes * Telephone Encounter - Becca Del Rio OSA - 11/12/2023 12:26 PM EDT Pt is scheduled for Friday * Telephone Encounter - Carlos Key RN - 11/12/2023 11:52 AM EDT Plan is signed. Scheduling- please call patient to schedule 3 hour apt "Infed" ([place]). Thank you. * Telephone Encounter - Verito Mclean LPN - 11/12/2023 8:42 AM EDT Order received for InFed [place] [phone] No prior authorization required Awaiting provider signature before scheduling patient documented in this encounter Plan of Treatment Upcoming Encounters Date Type Department Care Team (Late st Contact Info) Description 11/14/2023 12:30 PM EDT Hem/Onc Treatment Hematology/Oncology Treatment, [place] [address] [place] [address] Tammy, Chair 1 Hem Onc [place] [address] [place] [address] 11/18/2023 3:00 PM EDT Telemedicine Virtual, Nutrition Services [address] [place] [address] Daphne Cash, RDN [address] [place] [address] 11/20/2023 10:00 AM EDT Pharmacy Pharmacy, [place] [address] [place], [place] [id number] Clinic, [place] [address] [place], [place] [address] 11/24/2023 10:00 AM EDT Office Visit Gynecology/Obstetrics [facility] [address] [place] [address] Verito Plummer CRNP [address] [place] [address] 11/25/2023 8:30 AM EDT Office Visit Courtroom Deputy Or Calendar Clerk Obstetrics Maternal Medicine, [place] [address] [place] [address] Monse Johnson [address] [place] [address] 11/25/2023 8:30 AM EDT Imaging Radiology [facility], [place] [address] [place] [address] 12/08/2023 8:00 AM EDT Office Visit Gynecology/Obstetrics [facility] [address] [facility] [place] [address] Awilda Retana CRNP [address] [place] [address] Health Maintenance Due Date Last Done Comments Depression Screening 04/01/2015 04/01/2014 COVID-19 Vaccine (2022-24 season) 2022 07/28/2020, 07/07/2020 Influenza Vaccine (FLU [...] documented as of this encounter Care Teams Fixture Maker Relationship Specialty Start Date End Date Margo Avila DO [address] [facility] [address] [facility] [address] PCP - General Pediatrics 04/04/15 documented as of this encounter
--- OUTSIDE RECORDS SUMMARY | 2024-01-16 04:22 | External Medical Summary | Summary of Care ---
Author Name Unknown Organization [facility] Address [address] [place] [place] [address] Phone [phone] Care Team Providers Care Procurement Services Manager Name Role Phone AvilaMargo DO Primary Care Provider [phone] Reason for Visit * Reason Comments Procedure Infed Encounter Details Date Type Department Care Team (Latest Contact Info) Description 11/14/2023 12:30 PM EDT Hem/Onc Treatment Hematology/Oncology Treatment, [address] [address] Tammy, Chair [address] [address] Iron deficiency anemia, unspecified iron deficiency anemia type* Allergies No known active allergiesdocumented as of this encounter (statuses as of 11/14/2023) Medications Medication Sig Dispensed Refills Start Date [...] MCG Oral Tablet Take by mouth. Active [employer] Flex System w/Device Kit Use to test blood sugars 4 times daily (fasting, 1 hour after breakfast, lunch, and dinner) 1 Kit 11/07/2023 Active [employer] In Vitro Strip (Glucose Blood) Use to test blood sugars 4 times daily (fasting, 1 hour after breakfast, lunch, and dinner) 125 Strip 6 11/07/2023 Active TrovaGene Lancets 30G Use to test blood sugars 4 times daily (fasting, 1 hour after breakfast, lunch, and dinner) 200 Each 6 11/07/2023 Active documented as of this encounter (statuses as of 11/14/2023) Active Problems Problem Noted Date Diagnosed Date [...] Recommend nutrition consult with RDN (Registered Dietitian Gridcap Machine Operator). Lifestyle changes are also indicated including [...] and folate levels and referral to a dramatic agent. If hemoglobin levels are below 8 g/dl, we recommend Maternal Medicine ultrasound for growth every 4 weeks after 24 weeks. Consider a blood transfusion if hemoglobin levels fall below 6 g/dL. ([employer] Obstetricians and Appeals Board Referee Practice Bulletin Number 95, September,). Consider Venofer [...] as of this encounter (statuses as of 11/14/2023) Immunizations Name Administration Dates Next Due COVID-19 [...] money to get more. Never true 09/12/2023 [place] Depression Scale Answer Date Recorded [place] Depression Scale Total 5 06/17/2023 The thought [...] Eddy, Famotidine IVP administered. Per Awilda Retana SIZING MACHINE OPERATOR, proceed under guidance of Dr. Eddy. [...] Solu-Cortef and Pepcid given IV.Dr. Eddy at [facility] to assess patient. Patient able to speak [...] Telemedicine Virtual, Nutrition Services [address] [place] [address] Daphne Cash RDN [address] [place] [address] 11/20/2023 10:00 AM EDT Pharmacy Pharmacy, [place] [address] [place] [address] [facility], [facility] [address] [place] [address] 11/24/2023 10:00 AM EDT Office Visit Gynecology/Obstetrics [facility] [address] [facility] [id number] Vreito Plummer CRNP [address] [facility] [place] [address] 11/25/2023 8:30 AM EDT Office Visit Car Escort Obstetrics Maternal Medicine, [place] [address] [place] [address] Monse Johnson, [address] [place] [address] 11/25/2023 8:30 AM EDT Imaging Radiology [facility], [place] [address] [place] [address] 12/08/2023 8:00 AM EDT Office Visit Gynecology/Obstetrics [facility] [address] [facility] [id number] Awilda Retana CRNP [address] [facility] [address] Health Maintenance Due Date Last Done Comments [...] Primary documented in this encounter Administered Medications Active Administered Medications - up to 3 most recent administrations Medication Order MAR Action Action Date Dose Rate Site EPINEPHrine 1 MG/ML inj 0.3 mg 0.3 mg, Intramuscular, ONCE PRN Other, Hypersensitivity Reaction or Anaphylaxis, Starting on Fri11/14/23 at 1247, Until 11/15/23 at 1246, For 24 hours Famotidine (Pepcid) inj 20 mg 20 mg, IV Push, ONCE PRN Other, Hypersensitivity Reaction, Starting on Fri11/14/23 at 1247, Until 11/15/23 at 1246, For 24 hours, Give IV push over 2 minutes. Given 11/14/2023 1:33 PM EDT 20 mg hEParin 100 UNIT/ML Lock Flush inj 500 Units 500 Units (5 mL), IV Lock, PRN Other, IV Flush, Starting on Fri11/14/23 at 1247, Until 11/15/23 at 1246, For 24 hours, Do not flush if lock, PICC, or central line not in place; IV infusing or unable to flush. Hydrocortisone Sod Suc (PF) (Solu-Cortef) inj 100 mg 100 mg, IV Push, ONCE PRN Other, Hypersensitivity Reaction, Starting on Fri11/14/23 at 1247, Until 11/15/23 at 1246, For 24 hours Given 11/14/2023 1:27 PM EDT 100 mg NSS infusion Intravenous, at 50 mL/hr, PRN, Starting on Fri11/14/23 at 1400, Until Discontinued, Maintenance line Start Infusion 11/14/2023 12:48 PM EDT 50 mL/hr oxygen GAS Inhalation, OXYGEN, First dose on Fri11/14/23 at 1600, Until Discontinued, Device/Managed by: Low Flow Device, Goal SPO2 (%): 91-95, Starting Device: Nasal Cannula, Initial Flow Rate (LPM): 2, Lowest Support: Nasal Cannula: Flow 0-6 LPM. Titrate up/down by 1 LPM., Higher Support: Non-Rebreather (NRB) Mask: Minimum of 10 LPM. Titrate to maintain bag inflation., Titration Interval: Q2 minutes and as needed., Notify Provider: For sudden DECREASE in resting SPO2 to less than 85% and when escalating delivery device., Wean patient off Oxygen when the oxygen saturation is greater than or equal to 93% sodium chloride 0.9 % flush central line 10 mL 10 mL, IV Push, PRN Other, IV Flush, Starting on Fri11/14/23 at 1247, Until 11/15/23 at 1246, For 24 hours, Do not flush if lock, PICC, or central line not in place; IV infusing or unable to flush. Inactive Administered Medications - up to 3 most recent administrations Medication Order MAR Action Action Date Dose Rate Site diphenhydrAMINE (Benadryl) inj 25 mg 25 mg, IV Push, ONCE, On Fri11/14/23 at 1430, For 1 dose Given 11/14/2023 1:40 PM EDT 25 mg Iron Dextran (Infed) 975 mg in [...] Given 11/14/2023 12:49 PM EDT 25 mg documented in this encounter Additional Health Concerns Active Problems Noted Date Diagnosed Date OB Reminders 11/03/2023 documented as of this encounter Care Teams Procurement Services Manager Relationship Specialty Start Date End Date Margo Avila DO [address] [facility] [address] [place] [address] PCP - General Pediatrics 04/04/15 documented as of this encounter
--- OUTSIDE RECORDS SUMMARY | 2024-01-16 04:22 | External Medical Summary | Summary of Care ---
Author Name Unknown Organization [facility] Address [address] [place] [address] Phone [phone] Care Team Providers Care Pinmaker Name Role Phone Avila Margo Shari KELLEY Primary Care Provider [phone] Encounter Details Date Type Department Care Team (Late st Contact Info) Description 11/12/2023 Orders Only Pharmacy, [place] [address] [place] [address] Juan Snyder, [facility] [address] [place] [address] Allergies No known active allergiesdocumented as of [...] MCG Oral Tablet Take by mouth. Active OneTouch Verio Flex System w/Device Kit Use to test blood sugars 4 times daily (fasting, 1 hour after breakfast, lunch, and dinner) 1 Kit 11/07/2023 Active [employer] In Vitro Strip (Glucose Blood) Use to test blood sugars 4 times daily (fasting, 1 hour after breakfast, lunch, and dinner) 125 Strip 6 11/07/2023 Active Tristar Delica Lancets 30G Use to test blood [...] Recommend nutrition consult with RDN (Registered Dietitian Graphic Art Sales Representative). Lifestyle changes are also indicated including optimizing [...] and folate levels and referral to a loan interviewer. If hemoglobin levels are below 8 g/dl, we recommend Maternal Medicine ultrasound for growth every 4 weeks after 24 weeks. Consider a blood transfusion if hemoglobin levels fall below 6 g/dL. ([employer] Obstetricians and Size Maker Practice Bulletin Number 95, September,). Consider [...] mRNA, LNP-s, No Pre serve, 2-Dose Series ([employer]) 07/28/2020,07/07/2020 DTaP Dipth/Tet/Acell Pertussis (Infanrix), Peds 07/21/2000,01/03/1997,01/05/1996,11/03,1995 [...] money to get more. Never true 09/12/2023 [place] Depression Scale Answer Date Recorded [place] Depression Scale Total 5 06/17/2023 The thought [...] Telemedicine Virtual, Nutrition Services [address] [place] [address] Daphne Cash, RDN [address] [place] [address] [place] [address] 11/20/2023 10:00 AM EDT Pharmacy Pharmacy, [place] [address] [place] [address] Clinic, [place] [address] [place] [address] 11/24/2023 10:00 AM EDT Office Visit Gynecology/Obst[facility]s [facility] [address] [facility] [facility] [place] [address] Verito Plummer CRNP [address] [facility] [place] [address] 11/25/2023 8:30 AM EDT Office Visit Directory Compiler Obstetrics Maternal Medicine, [place] [address] [place] [address] Monse Johnson DO [address] [place] [address] 11/25/2023 8:30 AM EDT Imaging Radiology [facility], [place] [address] [place] [address] 12/08/2023 8:00 AM EDT Office Visit Gynecology/Obstetrics Josefa Barragan [address] [place] [address] Awilda Retana CRNP [address] [place] [address] Health Maintenance Due Date Last Done Comments [...] documented as of this encounter Care Teams Pinmaker Relationship Specialty Start Date End Date Margo Avila DO [address] [place] [address] PCP - General Pediatrics 04/04/15 documented as of this encounter
--- OUTSIDE RECORDS SUMMARY | 2024-01-16 04:22 | External Medical Summary | Summary of Care ---
Author Name Unknown Organization [facility] Address [address] [facility] [address] Phone [phone] Care Team Providers Care Pc Network Technician Name Role Phone Avila Margo Shari KELLEY Primary Care Provider [phone] Reason for Visit * Reason Onset Date Comments Medication Management 11/12/2023 InFed Encounter Details Date Type Department Care Team (Late st Contact Info) Description 11/12/2023 Telephone Hematology/Oncology Treatment, [place] [address] [place] [address] Awilda Retana CRNP [address] [place] [address] Medication Management (InFed) Allergies No known active [...] MCG Oral Tablet Take by mouth. Active [employer] Flex System w/Device Kit Use to test blood sugars 4 times daily (fasting, 1 hour after breakfast, lunch, and dinner) 1 Kit 11/07/2023 Active [employer] In Vitro Strip (Glucose Blood) Use to test blood sugars 4 times daily (fasting, 1 hour after breakfast, lunch, and dinner) 125 Strip 6 11/07/2023 Active Health [employer] Connect Lancets 30G Use to test blood sugars [...] Recommend nutrition consult with RDN (Registered Dietitian Documentum Consultant). Lifestyle changes are also indicated including optimizing [...] and folate levels and referral to a corporate general manager. If hemoglobin levels are below 8 g/dl, we recommend Maternal Medicine ultrasound for growth every 4 weeks after 24 weeks. Consider a blood transfusion if hemoglobin levels fall below 6 g/dL. ([employer] Obstetricians and Electrical Design Engineer Practice Bulletin Number 95, September,). Consider [...] money to get more. Never true 09/12/2023 [place] Depression Scale Answer Date Recorded [place] Depression Scale Total 5 06/17/2023 The thought [...] encounter Miscellaneous Notes * Telephone Encounter - Verito Mclean LPN - 11/12/2023 8:42 AM EDT Order received for InFed [place] plan built [place] [address] No prior authorization required Awaiting provider signature before scheduling patient documented in this encounter Plan of Treatment Upcoming Encounters Date Type Department Care Team (Late st Contact Info) Description 11/18/2023 3:00 PM EDT Telemedicine Virtual, Nutrition Services [address] [place] [address] Daphne Cash, RDN [address] [place] [address] [place] [address] 11/20/2023 10:00 AM EDT Pharmacy Pharmacy, [place] [address] [place] [address] Clinic, [facility] [address] [place] [address] 11/24/2023 10:00 AM EDT Office Visit Gynecology/Obstetrics [facility] 132 [facility] [place] [address] Verito Plummer CRNP [address] [facility] [place] [address] 11/25/2023 8:30 AM EDT Office Visit Medical Record Librarians Teacher Obstetrics Maternal Medicine, [place] [address] [place] [address] Elizabeth Monseruperto Tejada, [address] [place] [address] 11/25/2023 8:30 AM EDT Imaging Radiology [facility], [place] [address] [place] [address] 12/08/2023 8:00 AM EDT Office Visit Gynecology/Obstetrics Nettlesparveen Barragan [address] [facility] [place] [address] Awilda Retana CRNP [address] [place] [address] Health Maintenance Due Date Last Done Comments [...] Author Reminders Care Plan OB Reminders No Mycalbat, Provider documented as of this encounter Medical Devices Not on filedocumented as of this encounter Additional Health Concerns Active Problems Noted Date Diagnosed Date OB Reminders 11/03/2023 documented as of this encounter Care Teams Pc Network Technician Relationship Specialty Start Date End Date Margo Avila DO [address] [facility] [address] [place] [address] PCP - General Pediatrics 04/04/15 documented as of this encounter
--- OUTSIDE RECORDS SUMMARY | 2024-01-16 04:22 | External Medical Summary | Summary of Care ---
Author Name Unknown Organization [facility] Address [address] [facility] [address] Phone [phone] Care Team Providers Care Electro Mechanical Assembler Name Role Phone Avila Margo Shari KELLEY Primary Care Provider [phone] Encounter Details Date Type Department Care Team (Late st Contact Info) Description 11/12/2023 Orders Only Hematology/Oncology Treatment, [place] [address] [place] [address] Awilda Retana CRNP [address] [place] [address] Allergies No known active allergiesdocumented as of this encounter (statuses as of 11/13/2023) Medications Medication Sig Dispensed Refills Start Date [...] MCG Oral Tablet Take by mouth. Active Com[employer]Group Flex System w/Device Kit Use to test blood sugars 4 times daily (fasting, 1 hour after breakfast, lunch, and dinner) 1 Kit 11/07/2023 Active [employer]baGroup In Vitro Strip (Glucose Blood) Use to test blood sugars 4 times daily (fasting, 1 hour after breakfast, lunch, and dinner) 125 Strip 6 11/07/2023 Active [employer] DelPrecision Biologics Lancets 30G Use to test blood sugars 4 times daily (fasting, 1 hour after breakfast, lunch, and dinner) 200 Each 6 11/07/2023 Active documented as of this encounter (statuses as of 11/13/2023) Active Problems Problem Noted Date Diagnosed Date [...] Recommend nutrition consult with RDN (Registered Dietitian Wagon Washer). Lifestyle changes are also indicated including optimizing [...] and folate levels and referral to a distributor of directories. If hemoglobin levels are below 8 g/dl, we recommend Maternal Medicine ultrasound for growth every 4 weeks after 24 weeks. Consider a blood transfusion if hemoglobin levels fall below 6 g/dL. ([employer] Obstetricians and Nutrition Instructor Practice Bulletin Number 95, September,). Consider Venofer [...] as of this encounter (statuses as of 11/13/2023) Immunizations Name Administration Dates Next Due COVID-19 mRNA, LNP-s, No Pre serve, 2-Dose Series (LatamLeap) 07/28/2020,07/07/2020 DTaP Dipth/Tet/Acell Pertussis (Infanrix), Peds 07/21/2000,01/03/1997,01/05/1996,11/03,1995 [...] money to get more. Never true 09/12/2023 [place] Depression Scale Answer Date Recorded [place] Depression Scale Total 5 06/17/2023 The thought [...] 12:30 PM EDT Hem/Onc Treatment Hematology/Oncology Treatment, [place] [address] [place] [address] Tammy, Chair 1 Hem Onc Scenery [address] [place] [address] 11/18/2023 3:00 PM EDT Telemedicine Virtual, Nutrition Services [address] [place] [address] Daphne Cash, RDN [address] [place] [address] [place] [address] 11/20/2023 10:00 AM EDT Pharmacy Pharmacy, [address] [address] Clinic, [address] [address] 11/24/2023 10:00 AM EDT Office Visit Gynecology/Obstetrics [facility] [address] [place] [address] Verito Plummer CRNP [address] [place] [address] 11/25/2023 8:30 AM EDT Office Visit Real Estate Specialist Obstetrics Maternal Medicine, [address] [address] Monse Johnsoni, [address] [place] [address] 11/25/2023 8:30 AM EDT [facility] [address] [place] [address] 12/08/2023 8:00 AM EDT Office Visit Gynecology/Obstetrics Josefa Barragan [address] [facility] [place] [address] Awilda Retana CRNP [address] [place] [address] Health Maintenance Due Date Last Done Comments [...] documented as of this encounter Care Teams Electro Mechanical Assembler Relationship Specialty Start Date End Date Margo Avila DO [address] [facility] [address] [place] [address] PCP - General Pediatrics 04/04/15 documented as of this encounter
--- OUTSIDE RECORDS SUMMARY | 2024-01-16 04:22 | External Medical Summary | Summary of Care ---
Author Name Unknown Organization [facility] Address [address] [place] [address] Phone [phone] Care Team Providers Care Sourcing Consultant Name Role Phone AvilaMargo DO Primary Care Provider [phone] Reason for Visit * Reason Onset Date Comments Anemia Follow-Up 11/11/2023 * Evaluate & Treat - Unlimited Visits (Within 10 days (routine)) - Authorized Specialty Diagnoses / Procedures Referred By Contac t Referred To Contact Pharmacist / Pharmacy Diagnoses YADIRA (iron deficiency anemia) Awilda Retana CRNP [address] [place] [address] Referral ID Status Reason Start Date Expiration Date Visits Requested Visits Authorized [id number] Authorized Specialty Services Required 11/04/2023 05/02/2024 99 99 Encounter Details Date Type Department Care Team (Late st Contact Info) Description 11/11/2023 4:00 PM EDT Pharmacy Pharmacy, [place] [address] [place] [address] Clinic, [place] [address] [place] [address] Iron deficiency anemia, unspecified iron deficiency anemia type* Allergies No known active allergiesdocumented as of this encounter (statuses as of 11/11/2023) Medications Medication Sig Dispensed Refills Start Date [...] MCG Oral Tablet Take by mouth. Active GetGoing Flex System w/Device Kit Use to test blood sugars 4 times daily (fasting, 1 hour after breakfast, lunch, and dinner) 1 Kit 11/07/2023 Active GetGoing In Vitro Strip (Glucose Blood) Use to test blood sugars 4 times daily (fasting, 1 hour after breakfast, lunch, and dinner) 125 Strip 6 11/07/2023 Active ResearchGate Lancets 30G Use to test blood sugars 4 times daily (fasting, 1 hour after breakfast, lunch, and dinner) 200 Each 6 11/07/2023 Active documented as of this encounter (statuses as of 11/11/2023) Active Problems Problem Noted Date Diagnosed Date [...] MFM ADAPT consult complete. Enrolled in [facility]. Instructions provided to report blood sugars [...] Report levels to MFM (Maternal- Medicine) via [facility]. Recommend nutrition consult with RDN (Registered Dietitian Printer Helper). Lifestyle changes are also indicated including [...] and folate levels and referral to a public aid eligibility assistant. If hemoglobin levels are below 8 g/dl, we recommend Maternal Medicine ultrasound for growth every 4 weeks after 24 weeks. Consider a blood transfusion if hemoglobin levels fall below 6 g/dL. ([employer] Obstetricians and Head Bucker Practice Bulletin Number 95, September,). Consider Venofer [...] as of this encounter (statuses as of 11/11/2023) Immunizations Name Administration Dates Next Due COVID-19 [...] to get more. Never true 09/12/2023 [place] Depression Scale Answer Date Recorded [place] Depression Scale Total 5 06/17/2023 The thought [...] of this encounter Progress Notes * Maggie Rodriguez, [facility] - 11/11/2023 2:55 PM EDT Patient Phone Numbers Patient referred by DARLINE Moe for evaluation of anemia by the Anemia Clinic. Called patient to introduce role/clinic and to review labs from 11/02. Hgb: 10.6 g/dL TSAT: 7 % Ferritin: 6 ng/mL B12: 281 pg/mL FA: >20.0 ng/mL GA: 29w4d Estimated Date of Delivery: 01/23/24 Hgb is below target range for the third trimester. Iron studies below target range. B12 level belowtarget range. FA level within target range. Patient reports feeling tired and does get short of breath going up stiars and otherwise denies signs/symptoms of anemia. Patient is taking B12 1000mcg daily and appears to be tolerating it well. Oral iron replenishment inadequate or contraindicated. Patient qualifies for IV iron repletion. Insufficient time for oral iron to be effective. Plan: Iron dextran (INFeD) 1000 mg IV x 1 dose. Orders placed and routed to appropriate parties at [facility]. Patient agreeable to intervention. No need for pre-meds, as pt does not have asthma orany allergies. Follow-up labs to be scheduled ~4-6 weeks after iron repletion completed if appropriate prior to delivery. Anemia Clinic will continue to follow. Thank you for allowing us to participate in the care of thispatient. Thanks, Maggie Rodriguez [facility] Clinical Pharmacist [facility] (P: [phone]) 11/11/2023 2:55 PM documented in this encounter Plan of Treatment Upcoming Encounters Date Type Department Care Team (Late st Contact Info) Description 11/18/2023 3:00 PM EDT Telemedicine Virtual, Nutrition Services [address] [place] [address] Daphne Cash, RDN [address] [place] [address] [place] [address] 11/20/2023 10:00 AM EDT Pharmacy Pharmacy, [address] [address] Clinic, Anemia [address] [place] [address] 11/24/2023 10:00 AM EDT Office Visit [facility]necology[facility] [address] [facility] [address] JianerVerito CRNP [address] [place] [address] 11/25/2023 8:30 AM EDT Office Visit Roll Weigher Obstetrics Maternal Medicine, [address] [address] Monse Johnson DO [facility] [place] [address] 11/25/2023 8:30 AM EDT [facility] [address] [place] [facility] [place] [address] 12/08/2023 8:00 AM EDT Office Visit Gynecology/Obstetrics Josefa Barragan [address] [place] [address] Awilda Retana CRNP [address] [place] [address] Scheduled Referrals Name Type Priority Associated Diagnoses [...] documented as of this encounter Care Teams Sourcing Consultant Relationship Specialty Start Date End Date Margo Avila DO [address] [facility] [address] [place] [address] PCP - General Pediatrics 04/04/15 documented as of this encounter
--- OUTSIDE RECORDS SUMMARY | 2024-01-16 04:22 | External Medical Summary | Summary of Care ---
Author Name Unknown Organization [facility] Address [address] [facility] [address] Phone [phone] Care Team Providers Care Dough Machine Operator Name Role Phone Avila Margo Shari KELLEY Primary Care Provider [phone] Reason for Visit * Reason Onset Date Comments Medication Management 11/12/2023 InFed Encounter Details Date Type Department Care Team (Late st Contact Info) Description 11/12/2023 Telephone Hematology/Oncology Treatment, [place] [address] [place] [address] Awilda Retana CRNP [address] [place] [address] Medication Management (InFed) Allergies No known active [...] MCG Oral Tablet Take by mouth. Active [employer] Flex System w/Device Kit Use to test blood sugars 4 times daily (fasting, 1 hour after breakfast, lunch, and dinner) 1 Kit 11/07/2023 Active Peak Positioning Technologies In Vitro Strip (Glucose Blood) Use to test blood sugars 4 times daily (fasting, 1 hour after breakfast, lunch, and dinner) 125 Strip 6 11/07/2023 Active LuckyLabs Lancets 30G Use to test blood sugars [...] Recommend nutrition consult with RDN (Registered Dietitian Shipping And Receiving Weigher). Lifestyle changes are also indicated including optimizing [...] and folate levels and referral to a strike on machine operator. If hemoglobin levels are below 8 g/dl, we recommend Maternal Medicine ultrasound for growth every 4 weeks after 24 weeks. Consider a blood transfusion if hemoglobin levels fall below 6 g/dL. ([employer] Obstetricians and House Principal Practice Bulletin Number 95, September,). Consider Venofer [...] money to get more. Never true 09/12/2023 [place] Depression Scale Answer Date Recorded [place] Depression Scale Total 5 06/17/2023 The thought [...] encounter Miscellaneous Notes * Telephone Encounter - Carlos Key RN - 11/12/2023 11:52 AM EDT Plan is signed. Scheduling- please call patient to schedule 3 hour apt "Infed" ([place]). Thank you. * Telephone Encounter - Verito Mclean LPN - 11/12/2023 8:42 AM EDT Order received for InFed [place] [phone] No prior authorization required Awaiting provider signature before scheduling patient documented in this encounter Plan of Treatment Upcoming Encounters Date Type Department Care Team (Late st Contact Info) Description 11/18/2023 3:00 PM EDT Telemedicine Virtual, Nutrition Services [address] [place] [address] Daphne Cash, DEVONTE [address] [place] [address] [place] [address] 11/20/2023 10:00 AM EDT Pharmacy Pharmacy, [place] [address] [place] [address] [place] [address] [place] [address] 11/24/2023 10:00 AM EDT Office Visit Gynecology/Obstetrics [facility] [address] [place] [address] Verito Plummer CRNP [address] [place] [address] 11/25/2023 8:30 AM EDT Office Visit Wax Engraver Obstetrics Maternal Medicine, [place] [address] [place] [address] [facility] [address] [place] [address] 11/25/2023 8:30 AM EDT Imaging Radiology [facility] [place] [address] [place] [address] 12/08/2023 8:00 AM EDT Office Visit Gynecology/Obstetrics [facility] [address] [place] [address] Awilda Retana CRNP [address] [place] [address] Health Maintenance Due Date Last Done Comments [...] documented as of this encounter Care Teams Dough Machine Operator Relationship Specialty Start Date End Date Margo Avila DO [address] [facility] [address] [facility] [place] [address] PCP - General Pediatrics 04/04/15 documented as of this encounter
--- OUTSIDE RECORDS SUMMARY | 2024-01-16 04:22 | External Medical Summary | Summary of Care ---
Author Name Unknown Organization [facility] Address [address] [place] [address] Phone [phone] Care Team Providers Care Agriculture Internship Name Role Phone AvilaMargo murillo Shari KELLEY Primary Care Provider [phone] Reason for Visit * Reason Onset Date Comments Home Monitoring Orders Only 11/12/2023 Encounter Details Date Type Department Care Team (Late st Contact Info) Description 11/12/2023 Home Monitoring Care Coordination [address] [place], [place] [id number] CRNP [address] [place], [place] [id number] Diet controlled gestational diabetes mellitus (GDM) in [...] MCG Oral Tablet Take by mouth. Active appbackr Flex System w/Device Kit Use to test blood sugars 4 times daily (fasting, 1 hour after breakfast, lunch, and dinner) 1 Kit 11/07/2023 Active appbackr In Vitro Strip (Glucose Blood) Use to test blood sugars 4 times daily (fasting, 1 hour after breakfast, lunch, and dinner) 125 Strip 6 11/07/2023 Active [employer] Lancets 30G Use to test blood sugars [...] Recommend nutrition consult with RDN (Registered Dietitian Financial Analyst). Lifestyle changes are also indicated including optimizing [...] and folate levels and referral to a welding lead burner. If hemoglobin levels are below 8 g/dl, we recommend Maternal Medicine ultrasound for growth every 4 weeks after 24 weeks. Consider a blood transfusion if hemoglobin levels fall below 6 g/dL. ([employer] Obstetricians and Neonatal Social Worker Practice Bulletin Number 95, September,). Consider Venofer [...] money to get more. Never true 09/12/2023 [place] Depression Scale Answer Date Recorded [place] Depression Scale Total 5 06/17/2023 The thought [...] Progress Notes * [facility] Child Care Associate Teacher - 11/12/2023 10:05 AM EDT Patient has been successfully enrolled to the [id number] Diabetes Management in program. Standard alarm settings [...] urgent symptoms, they are aware to call office/director online marketing provider for additional instructions. In emergency situations, they will report directly to the ED for further evaluation. If you would like to customize the alert parameters and/or instructions for this patient, please let me know and we can have them changed documented in this encounter Plan of Treatment Upcoming Encounters Date Type Department Care Team (Late st Contact Info) Description 11/18/2023 3:00 PM EDT Telemedicine Virtual, Nutrition Services [address] [facility] [place] [address] Daphne Cash, RDN [address] [place] [address] [place] [address] 11/20/2023 10:00 AM EDT Pharmacy Pharmacy, [place] [address] [place] [address] Clinic, Anemia [address] [place] [address] 11/24/2023 10:00 AM EDT Office Visit Gynecology/Obstetrics [facility] [address] [place] [address] Verito Plummer CRNP [address] [place] [address] 11/25/2023 8:30 AM EDT Office Visit Fruit Grower Obstetrics Maternal Medicine, [place] [address] [place] [address] Monse Johnson [address] [place] [address] 11/25/2023 8:30 AM EDT Imaging Radiology [facility] [place], [place] [address] [place] [address] 12/08/2023 8:00 AM EDT Office Visit Gynecology/Obstetrics [facility] [address] [place] [address] Awilda Retana CRNP [address] [place] [address] Health Maintenance Due Date Last Done Comments [...] documented as of this encounter Care Teams Agriculture Internship Relationship Specialty Start Date End Date Margo Avila DO [address] [place] [address] PCP - General Pediatrics 04/04/15 documented as of this encounter
--- OUTSIDE RECORDS SUMMARY | 2024-01-16 04:23 | External Medical Summary | Summary of Care ---
Author Name Unknown Organization [facility] Address [address] [facility] [address] Phone [phone] Care Team Providers Care Life Skills Worker Name Role Phone Austin Margo Shari KELLEY Primary Care Provider [phone] Reason for Visit * Reason Comments Outpatient Testing Encounter Details Date Type Department Care Team (Late st Contact Info) Description 11/07/2023 7:10 AM EDT Laboratory Laboratory, [facility] [address] [facility] [place] [phone] [facility] [address] [facility] [place] [address] Abnormal glucose tolerance in mother complicating Allergies No known active allergiesdocumented as of this encounter (statuses as of 11/07/2023) Medications Medication Sig Dispensed Refills Start Date [...] as of this encounter (statuses as of 11/07/2023) Active Problems Problem Noted Date Diagnosed Date Antepartum anemia complicating 024 Overview: Blood management referral placed Supervision of normal first , antepartu m 06/17/2023 Candidiasis 03/30/2021 Anxiety disorder 03/30/2021 Hematuria 01/29/2013 Overview: ICD-10 update of inactive term Estimated Date of Delivery Comme nts Yes 01/23/2024 Based on last me nstrual period of 04/18/2023 documented as of this encounter (statuses as of 11/07/2023) Immunizations Name Administration Dates Next Due COVID-19 [...] money to get more. Never true 09/12/2023 [place] Depression Scale Answer Date Recorded [place] Depression Scale Total 5 06/17/2023 The thought [...] on last me nstrual period of 04/18/2023 Sex and Gender Information Value Date Recorded [...] Description 11/11/2023 4:00 PM EDT Pharmacy Pharmacy, [place] [address] [facility] [place] [address] Clinic, [place] [address] [facility] [place] [address] 11/24/2023 10:00 AM EDT Office Visit Gynecology/Obstetrics [facility] [address] [place] [address] Verito Plummer CRNP [address] [place] [address] 12/08/2023 8:00 AM EDT Office Visit Gynecology/Obstetrics [facility] [address] [place] [address] Awilda Retana CRNP [address] [place] [address] Pending Results Name Type Priority Associated Diagnoses Date /Time GESTATIONAL GLUCOSE TOLERANCE, 3 HOUR Lab Routine Abnormal glucose tolerance in mother complicating 11/07/2023 7:06 AM EDT 100-G GESTATIONAL GLUCOSE, 1 HOUR Lab Routine Abnormal glucose tolerance in mother complicating 11/07/2023 8:11 AM EDT 100-G GESTATIONAL GLUCOSE, 2 HOUR Lab Routine Abnormal glucose tolerance in mother complicating 11/07/2023 9:07 AM EDT Scheduled Orders Name Type Priority Associated Diagnoses Orde r Schedule 100-G GESTATIONAL GLUCOSE, 3 HOUR Lab Routine Abnormal glucose tolerance in mother complicating Ordered: 11/07/2023 Health Maintenance Due Date Last Done Comments Depression Screening 04/01/2015 04/01/2014 COVID-19 Vaccine ( season) 2022 07/28/2020, 07/07/2020 Influenza Vaccine (FLU shot) (#1) 2023 01/08/2013, 01/08/2013, 12/24/2010, Additional history exists Pap Smear 06/16/2026 06/17/2023, 03/17, 08/19/2018 DTaP,Tdap,and Td Vaccines (8 - Td or Tdap) 11/06/2033 [...] Not on filedocumented as of this encounter Procedures Procedure Name Priority Date/Time Associated Diagnosis Comments 100-G GESTATIONAL GLUCOSE, FASTING Routine 11/07/2023 7:06 AM EDT Abnormal glucose tolerance in mother complicating documented in this encounter Results * 100-G GESTATIONAL GLUCOSE, FASTING (11/07/2023 7:06 AM EDT) 100-g Gestational Glucose, Fasting 85 70 - 94 mg/dL 11/07/2023 8:04 AM EDT [facility]10 Blood Venous blood specimen / Unknown Venipuncture / Unknown 11/07/2023 7:06 AM EDT 11/07/2023 7:06 AM EDT Narrative [facility] 57-10 - 11/07/2023 8:04 AM EDT Based on ACOG guideline, gestational diabetes mellitus is diagnosed when any of the following is met: Fasting is greater than or equal to 95 mg/dL 1 hour is greater than or equal to 180 mg/dL 2 hour is greater than or equal to 155 mg/dL 3 hour is greater than or equal to 140 mg/dL Awilda GREGORIO LAB BLOOD ORDERABLES [facility] [place] [address] documented in this encounter Visit Diagnoses Diagnosis Abnormal glucose tolerance in mother complicating Abnormal maternal glucose tolerance, complicating , childbirth, or the puerperium, unspecified as to episode of care documented in this encounter Additional Health Concerns Active Problems Noted Date Diagnosed Date OB Reminders 11/03/2023 documented as of this encounter Care Teams Life Skills Worker Relationship Specialty Start Date End Date Margo Avila DO [address] [facility] [address] [place] [address] PCP - General Pediatrics 04/04/15 documented as of this encounter
--- OUTSIDE RECORDS SUMMARY | 2024-01-16 04:23 | External Medical Summary ---
Author Name Unknown Address Unknown Organization K0G:[facility] - [address] [place] [id number] Laboratory Report Ordering Provider Test Date Status MELISSA LAM 11/07/2023 09:07:16 Final Observation Date Value Abnormality Reference (Units ) Status Glucose, 2-hr post glucose challenge 11/07/2023 09:07:16 179 Above high normal 70-154 (mg/dL) Final Performing Location [facility] 0 - [address] [place] [id number]
--- OUTSIDE RECORDS SUMMARY | 2024-01-16 04:23 | External Medical Summary ---
Author Name Unknown Address Unknown Organization K01:[facility] - [address] [place] [address] Laboratory Report Ordering Provider Test Date Status MELISSA LAM 11/03/2023 10:08:45 Final Observation Date Value Abnormality Reference (Units ) Status TSH 11/03/2023 10:08:45 2.84 0.27-4.20 (uIU/mL) Final Performing Location [facility] - [address] [place] [address]
--- OUTSIDE RECORDS SUMMARY | 2024-01-16 04:23 | External Medical Summary | Summary of Care ---
Author Name Unknown Organization [facility] Address [address] [facility] [address] Phone [phone] Care Team Providers Care Customs Entry Writer Name Role Phone Austin Margo Shari KELLEY Primary Care Provider [phone] Reason for Visit * Reason Comments Outpatient Testing Encounter Details Date Type Department Care Team (Late st Contact Info) Description 11/03/2023 9:20 AM EDT Laboratory Laboratory, [facility] 132 [facility] [place] [phone] [facility] 132 [facility] [place] [address] Supervision of normal first , antepartum Allergies No known active allergiesdocumented as of this encounter (statuses as of 11/03/2023) Medications Medication Sig Dispensed Refills Start Date [...] as of this encounter (statuses as of 11/03/2023) Active Problems Problem Noted Date Diagnosed Date Supervision of normal first , antepartu m 06/17/2023 Candidiasis 03/30/2021 Anxiety disorder 03/30/2021 Hematuria 01/29/2013 Overview: ICD-10 update of inactive term Estimated Date of Delivery Comme nts Yes 01/23/2024 Based on last me nstrual period of 04/18/2023 documented as of this encounter (statuses as of 11/03/2023) Immunizations Name Administration Dates Next Due COVID-19 mRNA, LNP-s, No Pre serve, 2-Dose Series (Octamer) 07/28/2020,07/07/2020 DTaP Dipth/Tet/Acell Pertussis (Infanrix), Peds 07/21/2000,01/03/1997,01/05/1996,11/03,1995 [...] money to get more. Never true 09/12/2023 [place] Depression Scale Answer Date Recorded [place] Depression Scale Total 5 06/17/2023 The thought [...] Team (Late st Contact Info) Description 11/07/2023 7:45 AM EDT Office Visit Gynecology/Obstetrics Josefa Barragan [address] [place] [address] Twila Mclean PA-C [address] [place] [address] Pending Results Name Type Priority Associated Diagnoses Date /Time 50-G GESTATIONAL GLUCOSE, 1 HOUR Lab Routine Supervision of normal first , antepartum 11/03/2023 10:08 AM EDT SYPHILIS ANTIBODY SCREEN WITH REFLEX TO RPR Lab Routine Supervision of normal first , antepartum 11/03/2023 10:08 AM EDT CBC WITH WBC DIFFERENTIAL AND ANEMIA REFLEX WORKUP Lab Routine Supervision of normal first , antepartum 11/03/2023 10:08 AM EDT SYPHILIS ANTIBODY SCREEN Lab Routine Supervision of normal first , antepartum 11/03/2023 10:08 AM EDT ANEMIA CBC Lab Routine Supervision of normal first , antepartum 11/03/2023 10:08 AM EDT DIFFERENTIAL, AUTOMATED Lab Routine Supervision of normal first , antepartum 11/03/2023 10:08 AM EDT ANEMIA REFLEX CHEMISTRY HOLD Lab Routine Supervision of normal first , antepartum 11/03/2023 10:08 AM EDT Health Maintenance Due Date Last Done Comments Depression Screening 04/01/2015 04/01/2014 DTaP,Tdap,and Td Vaccines (7 - Td or Tdap) 11/05/2016 11/05/2006, 07/21/2000, 01/03/1997, Additional history exists COVID-19 Vaccine (3 - season) 2022 07/28/2020, 07/07/2020 Influenza Vaccine (FLU shot) (#1) 2023 01/08/2013, 01/08/2013, 12/24/2010, Additional history exists Pap Smear 06/16/2026 06/17/2023, 03/17, 08/19/2018 Hepatitis B Vaccine Completed 01/05/1996, 1995, 1995 HPV (Gardasil) Vaccine Completed 2, 02/27/2011, 12/24/2010 MENINGOCOCCAL (MENACTRA/MENVEO) Completed 01/08/2013, 03/03/2007 Gonorrhea / Chlamydia Screen Discontinued 06/17/2023, 03/30/2021, 08/19/2018, Additional history exists Pneumococcal Vaccine: Pediatrics (0 to 5 Years) and At-Risk Patients (6 to 64 Years) Aged Out No longer eligible based on patient's age to complete this topic documented as of this encounter Medical Devices Not on filedocumented as of this encounter Visit Diagnoses Diagnosis Supervision of normal first , antepartum documented in this encounter Care Teams Customs Entry Writer Relationship Specialty Start Date End Date Margo Avila DO [address] [facility] [address] [place] [address] PCP - General Pediatrics 04/04/15 documented as of this encounter
--- OUTSIDE RECORDS SUMMARY | 2024-01-16 04:23 | External Medical Summary | Summary of Care ---
Author Name Unknown Organization [facility] Address [address] [facility] [address] Phone [phone] Care Team Providers Care Physician Name Role Phone Margo Avila DO Primary Care Provider [phone] Reason for Referral * (Within 10 days (routine)) Specialty Diagnoses / Procedures Referred By Bela armstrong Referred To Contact [facility] Awilda Retana CRNP [address] [place] [address] Referral ID Status Reason Start Date Expiration Date Visits Re quested Visits Authorized Question Answer Referral Priority Within 10 days (routine) Where should this appointment be scheduled? [facility] Reason for Visit * Reason Onset Date Comments Referral 11/04/2023 Encounter Details Date Type Department Care Team (Late st Contact Info) Description 11/04/2023 Telephone Gynecology/Obstetrics [facility] [address] [place] [address] Awilda Retana CRNP [address] [place] [address] Referral Allergies No known active allergiesdocumented as of this encounter (statuses as of 11/04/2023) Medications Medication Sig Dispensed Refills Start Date [...] as of this encounter (statuses as of 11/04/2023) Active Problems Problem Noted Date Diagnosed Date Antepartum anemia complicating 024 Overview: Blood management referral placed Supervision of normal first , antepartu m 06/17/2023 Candidiasis 03/30/2021 Anxiety disorder 03/30/2021 Hematuria 01/29/2013 Overview: ICD-10 update of inactive term Estimated Date of Delivery Comme nts Yes 01/23/2024 Based on last me nstrual period of 04/18/2023 documented as of this encounter (statuses as of 11/04/2023) Immunizations Name Administration Dates Next Due COVID-19 mRNA, LNP-s, No Pre serve, 2-Dose Series (Prime Grid) 07/28/2020,07/07/2020 DTaP Dipth/Tet/Acell Pertussis (Infanrix), Peds 07/21/2000,01/03/1997,01/05/1996,11/03,1995 [...] money to get more. Never true 09/12/2023 [place] Depression Scale Answer Date Recorded [place] Depression Scale Total 5 06/17/2023 The thought [...] Telephone Encounter - Svetlana Allen LPN - 11/04/2023 9:01 AM EDT Patient aware, already contacted by blood management this morning. * Telephone Encounter - Awilda Retana CRNP - 11/04/2023 8:35 AM EDT Anemic. Blood management referral placed for iron infusions. Please notify pt. documented in this encounter Plan of Treatment Upcoming Encounters Date Type Department Care Team (Late st Contact Info) Description 11/07/2023 7:10 AM EDT Laboratory Laboratory, [facility] [address] [place] [phone] Jessica Barragan [address] [place] [address] 11/07/2023 7:45 AM EDT Office Visit Gynecology/Obstetrics Josefa Barragan [address] [place] [address] Twila Mclean PA-C [address] [place] [address] Scheduled Referrals Name Type Priority Associated Diagnoses Orde r Schedule BLOOD MANAGEMENT REFERRAL Referral Within 10 days (routine) Antepartum anemia complicating Ordered: 11/04/2023 Health Maintenance Due Date Last Done Comments Depression Screening 04/01/2015 04/01/2014 DTaP,Tdap,and Td Vaccines (7 - Td or Tdap) 11/05/2016 11/05/2006, 07/21/2000, 01/03/1997, Additional history exists COVID-19 Vaccine ( season) 2022 07/28/2020, 07/07/2020 [...] as of this encounter Visit Diagnoses Diagnosis Antepartum anemia complicating - Primary Anemia, antepartum documented in this encounter Additional Health Concerns Active Problems Noted Date Diagnosed Date OB Reminders 11/03/2023 documented as of this encounter Care Teams Physician Relationship Specialty Start Date End Date Margo Avila DO [address] [facility] [address] [place] [address] PCP - General Pediatrics 04/04/15 documented as of this encounter
--- OUTSIDE RECORDS SUMMARY | 2024-01-16 04:23 | External Medical Summary ---
Author Name Unknown Address Unknown Organization K0[facility] - [address] [place] [id number] Laboratory Report Ordering Provider Test Date Status CELI LAMNINI 11/07/2023 07:06:19 Final Based on ACOG guideline, ges tational diabetes mellitus is diagnosed when any of the following is met:
Fasting is greater than or equal to 95 mg/dL
1 hour is greater than or equal to 180 mg/dL
2 hour is greater than or equal to 155 mg/dL
3 hour is greater than or equal to 140 mg/dL Observation Date Value Abnormality Reference (Units ) Status Glucose, fasting 11/07/2023 07:06:19 85 70- 94 (mg/dL) Final Performing Location [facility] 0 - [address] [place] [id number]
--- OUTSIDE RECORDS SUMMARY | 2024-01-16 04:23 | External Medical Summary | Summary of Care ---
Author Name Unknown Organization [facility] Address [address] [facility] [address] Phone [phone] Care Team Providers Care Sales Merchandise Associate Name Role Phone Austin Margo Shari KELLEY Primary Care Provider [phone] Reason for Visit * Reason Comments Outpatient Testing Encounter Details Date Type Department Care Team (Late st Contact Info) Description 11/07/2023 7:10 AM EDT Laboratory Laboratory, [facility] 132 [facility] [place] [phone] [facility] 132 [facility] [place] [address] Abnormal glucose tolerance in mother complicating Allergies [...] money to get more. Never true 09/12/2023 [place] Depression Scale Answer Date Recorded [place] Depression Scale Total 5 06/17/2023 The thought [...] Description 11/07/2023 7:45 AM EDT Office Visit Gynecology/Obstetric s Josefa Barragan [address] [place] [address] Twila Mclean PA-C [address] [place] [address] Supervision of normal first , antepartum*; Antepartum anemia complicating 11/11/2023 4:00 PM EDT Pharmacy Pharmacy, [place] [address] [place] [address] Clinic, [place] [address] [place] [address] Pending Results Name Type Priority Associated Diagnoses Date /Time GESTATIONAL GLUCOSE TOLERANCE, 3 HOUR Lab Routine Abnormal glucose tolerance in mother complicating 11/07/2023 7:06 AM EDT 100-G GESTATIONAL GLUCOSE, FASTING Lab Routine Abnormal glucose tolerance in mother complicating 11/07/2023 7:06 AM EDT Scheduled Orders Name Type Priority Associated Diagnoses Orde r Schedule 100-G GESTATIONAL GLUCOSE, 1 HOUR Lab Routine [...] antepartum- Primary Antepartum anemia complicating Anemia, antepartum Abnormal glucose tolerance in mother complicating Abnormal maternal glucose tolerance, complicating , childbirth, or the puerperium, unspecified as to episode of care documented in this encounter Additional Health Concerns Active Problems Noted Date Diagnosed Date OB Reminders 11/03/2023 documented as of this encounter Care Teams Sales Merchandise Associate Relationship Specialty Start Date End Date Margo Avila DO [address] [facility] [address] [place] [address] PCP - General Pediatrics 04/04/15 documented as of this encounter
--- OUTSIDE RECORDS SUMMARY | 2024-01-16 04:23 | External Medical Summary ---
Author Name Unknown Address Unknown Organization K0G:[facility] - [address] [place] [id number] Laboratory Report Ordering Provider Test Date Status CAROLEMELISSA 11/07/2023 08:11:17 Final Observation Date Value Abnormality Reference (Units ) Status Glucose [Mass/volume] in Serum or Plasma --1 hour post dose glucose 11/07/2023 08:11:17 188 Above high normal 70-179 (mg/dL) Final Performing Location [facility] 0 - [address] [place] [id number]
--- OUTSIDE RECORDS SUMMARY | 2024-01-16 04:23 | External Medical Summary | Summary of Care ---
Author Name Unknown Organization [facility] Address [address] [facility] [address] Phone [phone] Care Team Providers Care Brazing Machine Operator Helper Name Role Phone Avila Margo Shari KELLEY Primary Care Provider [phone] Encounter Details Date Type Department Care Team (Late st Contact Info) Description 11/03/2023 [facility] [address] [place] [address] Awilda Retana CRNP [address] [place] [address] Allergies No known active allergiesdocumented as of [...] money to get more. Never true 09/12/2023 [place] Depression Scale Answer Date Recorded [place] Depression Scale Total 5 06/17/2023 The thought [...] encounter Miscellaneous Notes * Telephone Encounter - Jocelynn Mcallister LPN - 11/03/2023 1:19 PM EDT See MyG encounter * Telephone Encounter - Awilda Retana CRNP - 11/03/2023 12:55 PM EDT Please notify pt that glucola elevated (155). Needs 3hr GTT. Orders placed. documented in this encounter Plan of Treatment Upcoming Encounters Date Type Department Care Team (Late st Contact Info) Description 11/07/2023 7:45 AM EDT [facility] [address] [place] [address] Twila Mclean PA-C [address] [place] [address] Scheduled Orders Name Type Priority Associated Diagnoses Orde r Schedule GESTATIONAL GLUCOSE TOLERANCE, 3 HOUR Lab Routine Abnormal glucose tolerance in mother complicating Expected: 11/04/2023 (Approximate), Expires: 11/02/2024 Health Maintenance Due Date Last Done Comments Depression Screening 04/01/2015 04/01/2014 DTaP,Tdap,and Td Vaccines (7 - Td or Tdap) 11/05/2016 11/05/2006, 07/21/2000, 01/03/1997, Additional history exists COVID-19 Vaccine (3 - 2022- season) 2022 07/28/2020, 07/07/2020 Influenza Vaccine (FLU [...] as of this encounter Visit Diagnoses Diagnosis Abnormal glucose tolerance in mother complicating - Primary Abnormal maternal glucose tolerance, complicating , childbirth, or the puerperium, unspecified as to episode of care documented in this encounter Care Teams Brazing Machine Operator Helper Relationship Specialty Start Date End Date Margo Avila DO [address] [facility] [address] [place] [id number] PCP - General Pediatrics 04/04/15 documented as of this encounter
--- OUTSIDE RECORDS SUMMARY | 2024-01-16 04:23 | External Medical Summary ---
Author Name Unknown Address Unknown Organization K01:LABORATORY [facility] - [address] [place] [address] Laboratory Report Ordering Provider Test Date Status CELI LAMNINI 11/03/2023 10:08:45 Final Observation Date Value Abnormality Reference (Units ) Status Retic, % (auto) 11/03/2023 10:08:45 2.39 Above high normal 0.80-1.90 (%) Final Reticulocytes, Absolute 11/03/2023 10:08:45 86.0 31.3-100.1 (K/uL) Final Reticulocyte fraction, immature 11/03/2023 10:08:45 30.6 Above high normal 2.5-20.6 (%) Final Reticulocyte HGB 11/03/2023 10:08:45 27.5 Below low normal 29.7-37.4 (pg) Final Performing Location LAB[facility] - [address] [facility] [address]
--- OUTSIDE RECORDS SUMMARY | 2024-01-16 04:23 | External Medical Summary | Summary of Care ---
Author Name Unknown Organization [facility] Address [address] [facility] [address] Phone [phone] Care Team Providers Care Independent Video Producer Name Role Phone Austin Margo Shari KELLEY Primary Care Provider [phone] Reason for Visit * Reason Comments Outpatient Testing Encounter Details Date Type Department Care Team (Late st Contact Info) Description 11/07/2023 7:10 AM EDT Laboratory Laboratory, [facility] [address] [facility] [place] [phone] [facility] [address] [facility] [place] [address] Abnormal glucose tolerance in mother complicating Allergies [...] money to get more. Never true 09/12/2023 [place] Depression Scale Answer Date Recorded [place] Depression Scale Total 5 06/17/2023 The thought [...] Description 11/11/2023 4:00 PM EDT Pharmacy Pharmacy, [address] [address] Clinic, [place] [address] [place] [address] Pending Results Name Type Priority Associated Diagnoses Date /Time GESTATIONAL GLUCOSE TOLERANCE, 3 HOUR Lab Routine Abnormal glucose tolerance in mother complicating 11/07/2023 7:06 AM EDT 100-G GESTATIONAL GLUCOSE, 1 HOUR Lab Routine Abnormal glucose tolerance in mother complicating 11/07/2023 8:11 AM EDT Scheduled Orders Name Type Priority Associated Diagnoses Orde r Schedule 100-G GESTATIONAL GLUCOSE, 2 HOUR Lab Routine [...] 94 mg/dL 11/07/2023 8:04 AM EDT [facility]10 Blood Venous blood specimen / Unknown Venipuncture / Unknown 11/07/2023 7:06 AM EDT 11/07/2023 7:06 AM EDT Narrative [facility]10 - 11/07/2023 8:04 AM EDT Based [...] mg/dL Awilda GREGORIO LAB BLOOD ORDERABLES [facility] [facility] [place] [address] documented in this encounter Visit Diagnoses Diagnosis Abnormal glucose tolerance in mother complicating Abnormal maternal glucose tolerance, complicating , childbirth, or the puerperium, unspecified as to episode of care documented in this encounter Additional Health Concerns Active Problems Noted Date Diagnosed Date OB Reminders 11/03/2023 documented as of this encounter Care Teams Independent Video Producer Relationship Specialty Start Date End Date Margo Avila DO [address] [facility] [address] [facility] [place] [address] PCP - General Pediatrics 04/04/15 documented as of this encounter
--- OUTSIDE RECORDS SUMMARY | 2024-01-16 04:23 | External Medical Summary | Summary of Care ---
Author Name Unknown Organization [facility] Address [address] [place] [address] Phone [phone] Care Team Providers Care Head Operator Sulfide Name Role Phone Margo Avila Shari KELLEY Primary Care Provider [phone] Reason for Visit * Reason Onset Date Comments Encounter Created in Error 11/11/2023 Encounter Details Date Type Department Care Team ([facility] st Contact Info) Description 11/11/2023 Telephone Veterinary Dentist Obstetric M[facility], [place] [address] [place] [address] CRNP [address] [place] [address] Encounter created in error Allergies No known active allergiesdocumented as of [...] MCG Oral Tablet Take by mouth. Active Boomi Verio Flex System w/Device Kit Use to test blood sugars 4 times daily (fasting, 1 hour after breakfast, lunch, and dinner) 1 Kit 11/07/2023 Active NOW! InnovationsTouch Augurio In Vitro Strip (Glucose Blood) Use to test blood sugars 4 times daily (fasting, 1 hour after breakfast, lunch, and dinner) 125 Strip 6 11/07/2023 Active sourceasyuch DelLucidity (MemberRx) Lancets 30G Use to test blood sugars 4 times daily (fasting, 1 hour after breakfast, lunch, and dinner) 200 Each 6 11/07/2023 Active documented as of this encounter (statuses as of 11/11/2023) Active Problems Problem Noted Date Diagnosed Date Diet controlled gestational diabetes mellitus (GDM) in [...] Report levels to MFM (Maternal- Medicine) via [facility]. Recommend nutrition consult with RDN (Registered Dietitian Optimization Manager). Lifestyle changes are also indicated including optimizing [...] and folate levels and referral to a internal audit consultant. If hemoglobin levels are below 8 g/dl, we recommend Maternal Medicine ultrasound for growth every 4 weeks after 24 weeks. Consider a blood transfusion if hemoglobin levels fall below 6 g/dL. ([employer] Bulletin Number 95, September,). Consider Venofer [...] mRNA, LNP-s, No Pre serve, 2-Dose Series (Cinemagram) 07/28/2020,07/07/2020 DTaP Dipth/Tet/Acell Pertussis (Infanrix), Peds 07/21/2000,01/03/1997,01/05/1996,11/03,1995 [...] money to get more. Never true 09/12/2023 [place] Depression Scale Answer Date Recorded [place] Depression Scale Total 5 06/17/2023 The thought [...] encounter Miscellaneous Notes * Telephone Encounter - Melissa Lane CRNP - 11/11/2023 10:06 AM EDT This encounter was created in error. 11/11/2023, 10:06 AM, DARLINE Strickland documented in this encounter Plan of Treatment Upcoming Encounters Date Type Department Care Team (Late st Contact Info) Description 11/11/2023 4:00 PM EDT Pharmacy Pharmacy, [address] [address] Clinic, [address] [address] 11/18/2023 3:00 PM EDT Telemedicine Virtual, Nutrition Services [facility] [address] [place] [address] Daphne Cash, RDN [address] [place] [address] 11/24/2023 10:00 AM EDT Office Visit Gynecology/Obstetrics [facility] [place] [address] Verito Plummer CRNP 132 [facility] [place] [address] 11/25/2023 8:30 AM EDT Office Visit Veterinary Dentist Obstetrics Maternal Medicine, [place] [address] [place] [address] Elizabeth Monseruperto Tejada, [address] [place] [address] 11/25/2023 8:30 AM EDT Imaging Radiology [facility], [place] [address] [place] [address] 12/08/2023 8:00 AM EDT Office [facility] [address] [facility] [place] [address] Awilda Retana CRNP [address] [place] [address] Health Maintenance Due Date Last Done Comments [...] as of this encounter Visit Diagnoses Diagnosis Encounter Created In Error- Primary documented in this encounter Additional Health Concerns Active Problems Noted Date Diagnosed Date OB Reminders 11/03/2023 documented as of this encounter Care Teams Head Operator Sulfide Relationship Specialty Start Date End Date Margo Avila DO [address] [facility] [address] [place] [address] PCP - General Pediatrics 04/04/15 documented as of this encounter
--- OUTSIDE RECORDS SUMMARY | 2024-01-16 04:23 | External Medical Summary | Summary of Care ---
Author Name Unknown Organization [facility] Address [address] [place] [address] Phone [phone] Care Team Providers Care Battery Charger Tester Name Role Phone Margo Avila Shari KELLEY Primary Care Provider [phone] Reason for Visit * Reason Comments Blood Management Program Encounter Details Date Type Department Care Team (Late st Contact Info) Description 11/04/2023 Documentation Patient Blood Management, [place] [address] [place] [address] Ashish Carlton RN Allergies No known active allergiesdocumented as of [...] money to get more. Never true 09/12/2023 [place] Depression Scale Answer Date Recorded [place] Depression Scale Total 5 06/17/2023 The thought [...] as of this encounter Progress Notes * Ashish Carlton RN - 11/04/2023 8:39 AM EDT REFERRAL - Patient Blood Management Name: Julieta Cordon REQUESTING SERVICE: Nazario Barragan OB REASON FOR REFERRAL: new evaluation outpatient, anemia in [place]: 01/23/24 Anemia Evaluation: Latest Reference Range & Units 11/03/23 10:08 HGB 12.0 - 15.3 g/dL 10.6 (L) HCT 36.0 - 45.2 % 32.7 (L) Iron 33 - 151 ug/dL 37 Iron Binding Capacity 250 - 425 ug/dL 506 (H) Transferrin Saturation Percent 15 - 55 % 7 (L) Ferritin 13 - 150 ng/mL 6 (L) Vitamin B12 232 - 1,245 pg/mL 281 Folic Acid >4.5 ng/mL >20.0 Immature Reticuloctye Fraction 2.5 - 20.6 % 30.6 (H) Reticulocyte Hemoglobin 29.7 - 37.4 pg 27.5 (L) (L): Data is abnormally low (H): Data is abnormally high Current Patient Medications: Medications that may impair hemostasis: none Medications that may impair iron absorption: omeprazole Patient Refused Blood Transfusion? (e.g. Congregation): no Possible Contributing Factors: iron deficiency and vitamin B12 deficiency Treatment Recommendations: B12 1000mcg PO daily IV iron per OB MTM guidelines 11/03 - Spoke with Julieta, she will get b12 1000mcg OTC and start taking daily. Risks and benefits of IV iron, including risk of adverse drug reaction discussed with patient. Patient voiced understanding. Prefers infusion at [facility]. Thank you for allowing Blood Management to participate in the care of this patient. documented in this encounter Plan of Treatment Upcoming Encounters Date Type Department Care Team (Late st Contact Info) Description 11/07/2023 7:10 AM EDT Laboratory Laboratory, [facility] [address] [place] [address] [facility] [address] [place] [address] 11/07/2023 7:45 AM EDT Office Visit Gynecology/Obstetrics [facility] [address] [place] [address] Twila Mclean PA-C [address] [place] [address] Health Maintenance Due Date Last Done Comments Depression Screening 04/01/2015 04/01/2014 DTaP,Tdap,and Td Vaccines (7 - Td or Tdap) 11/05/2016 11/05/2006, 07/21/2000, 01/03/1997, Additional history exists COVID-19 Vaccine (2022- season) 2022 07/28/2020, 07/07/2020 Influenza Vaccine (FLU [...] documented as of this encounter Care Teams Battery Charger Tester Relationship Specialty Start Date End Date Margo Avila DO [address] [facility] [address] [place] [address] PCP - General Pediatrics 04/04/15 documented as of this encounter
--- OUTSIDE RECORDS SUMMARY | 2024-01-16 04:23 | External Medical Summary | Summary of Care ---
Author Name Unknown Organization [facility] Address [address] [facility] [address] Phone [phone] Care Team Providers Care Mapping Technician Name Role Phone Austin Margo Shari KELLEY Primary Care Provider [phone] Reason for Visit * Reason Comments Outpatient Testing Encounter Details Date Type Department Care Team (Late st Contact Info) Description 11/07/2023 7:10 AM EDT Laboratory Laboratory, [facility] 132 [facility] [place] [phone] [facility] [address] [facility] [place] [address] Abnormal glucose tolerance in mother complicating Allergies [...] money to get more. Never true 09/12/2023 [place] Depression Scale Answer Date Recorded [place] Depression Scale Total 5 06/17/2023 The thought [...] Description 11/11/2023 4:00 PM EDT Pharmacy Pharmacy, [address] [address] Clinic, [place] [address] [place] [address] Pending Results Name Type Priority Associated Diagnoses [...] BLOOD ORDERABLES [facility]10 [address] [facility] [place] [address] documented in this encounter Visit Diagnoses Diagnosis Abnormal glucose tolerance in mother complicating Abnormal maternal glucose tolerance, complicating , childbirth, or the puerperium, unspecified as to episode of care documented in this encounter Additional Health Concerns Active Problems Noted Date Diagnosed Date OB Reminders 11/03/2023 documented as of this encounter Care Teams Mapping Technician Relationship Specialty Start Date End Date Margo Avila DO [address] [facility] [place] [address] [facility] [address] PCP - General Pediatrics 04/04/15 documented as of this encounter
--- OUTSIDE RECORDS SUMMARY | 2024-01-16 04:23 | External Medical Summary ---
Author Name Unknown Address Unknown Organization K01:LABORATORY [facility] - [address] [place] [address] Laboratory Report Ordering Provider Test Date Status MELISSA LAM 11/03/2023 10:08:45 Final Observation Date Value Abnormality Reference (Units ) Status Iron 11/03/2023 10:08:45 37 33-151 (ug/dL) Final Iron-binding capacity 11/03/2023 10:08:45 506 Above high normal 250-425 (ug/dL) Final Transferrin Sat % 11/03/2023 10:08:45 7 Below low normal 15-55 (%) Final Performing Location LABORATORY C - [address] [place] [address]
--- OUTSIDE RECORDS SUMMARY | 2024-01-16 04:23 | External Medical Summary | Summary of Care ---
Author Name Unknown Organization [facility] Address [address] [facility] [place] [address] Phone [phone] Care Team Providers Care Bag Washer Name Role Phone Austin Margo Shari KELLEY Primary Care Provider [phone] Reason for Visit * Reason Comments Outpatient Testing Encounter Details Date Type Department Care Team (Late st Contact Info) Description 11/07/2023 7:10 AM EDT Laboratory Laboratory, [facility] 132 [facility] [place] [phone] [facility] 132 [facility] [place] [address] Abnormal glucose tolerance in mother complicating Allergies [...] money to get more. Never true 09/12/2023 [place] Depression Scale Answer Date Recorded [place] Depression Scale Total 5 06/17/2023 The thought [...] Description 11/11/2023 4:00 PM EDT Pharmacy Pharmacy, [place] [address] [facility] [place] [address] Clinic, [place] [address] [address] [facility] [place] [address] 11/24/2023 10:00 AM EDT Office Visit Gynecology/Obstetrics [facility] [address] [place] [address] Verito Plummer CRNP [address] [place] [address] 12/08/2023 8:00 AM EDT Office Visit Gynecology/Obstetrics [facility] [address] [place] [address] Awilda Retana CRNP [address] [place] [address] Pending Results Name Type Priority Associated Diagnoses Date /Time GESTATIONAL GLUCOSE TOLERANCE, 3 HOUR Lab Routine Abnormal glucose tolerance in mother complicating 11/07/2023 7:06 AM EDT 100-G GESTATIONAL GLUCOSE, 2 HOUR Lab Routine Abnormal glucose tolerance in mother complicating 11/07/2023 9:07 AM EDT 100-G GESTATIONAL GLUCOSE, 3 HOUR Lab Routine Abnormal glucose tolerance in mother complicating 11/07/2023 10:06 AM EDT Health Maintenance Due Date Last [...] Date/Time Associated Diagnosis Comments 100-G GESTATIONAL GLUCOSE, 1 HOUR Routine 11/07/2023 8:11 AM EDT Abnormal glucose tolerance in mother complicating 100-G GESTATIONAL GLUCOSE, FASTING Routine 11/07/2023 7:06 AM EDT Abnormal glucose tolerance in mother complicating documented in this encounter Results * (ABNORMAL) 100-G GESTATIONAL GLUCOSE, 1 HOUR (11/07/2023 8:11 AM EDT) 100-g Gestational Glucose, 1 Hour 188(H) 70 - 179 mg/dL 11/07/2023 9:11 AM EDT [facility] 57-10 Blood Venous blood specimen / Unknown Venipuncture / Unknown 11/07/2023 8:11 AM EDT 11/07/2023 8:11 AM EDT Awilda Arnold Lainey GREGORIO LAB BLOOD ORDERABLES [facility] 57-[address] [place] [address] * 100-G GESTATIONAL GLUCOSE, FASTING (11/07/2023 7:06 AM EDT) [facility] 100-g Gestational Glucose, Fasting 85 70 - 94 mg/dL 11/07/2023 8:04 AM EDT [facility]ORY [facility] 57-10 Blood Venous blood specimen / Unknown Venipuncture / Unknown 11/07/2023 7:06 AM EDT 11/07/2023 7:06 AM EDT Narrative LAB[facility]ATORY [facility] 57-10 - 11/07/2023 8:04 AM EDT Based on ACOG guideline, gestational diabetes mellitus is diagnosed when any of the following is met: Fasting is greater than or equal to 95 mg/dL 1 hour is greater than or equal to 180 mg/dL 2 hour is greater than or equal to 155 mg/dL 3 hour is greater than or equal to 140 mg/dL Awilda Clayton GREG[facility]IO LAB BLOOD ORDERABLES Performing Organization Address City/[facility]/ZIP Co de Phone Number LABORATORY [facility] 57-[address] [place] [address] documented in this encounter Visit Diagnoses Diagnosis Abnormal glucose tolerance in mother complicating Abnormal maternal glucose tolerance, complicating , childbirth, or the puerperium, unspecified as to episode of care documented in this encounter Additional Health Concerns Active Problems Noted Date Diagnosed Date OB Reminders 11/03/2023 documented as of this encounter Care Teams Bag Washer Relationship Specialty Start Date End Date Margo Avila DO [address] [place] [address] [place] [address] PCP - General Pediatrics 04/04/15 documented as of this encounter
--- OUTSIDE RECORDS SUMMARY | 2024-01-16 04:23 | External Medical Summary | Summary of Care ---
Author Name Unknown Organization [facility] Address [address] [place] [address] Phone [phone] Care Team Providers Care Painter Aircraft Name Role Phone Margo Avila Shari KELLEY Primary Care Provider [phone] Reason for Referral * Evaluate & Treat - Unlimited Visits (Within 3 days (urgent)) - Authorized Specialty Diagnoses / Procedures Referred By Bela armstrong Referred To Contact Steeple Jack Diagnoses Diet controlled gestational diabetes mellitus (GDM) in third trimester Melissa Lane CRNP [address] [place] [address] Referral ID Status Reason Start Date Expiration Date Visits Requested Visits Authorized [id number] Authorized Specialty Services Required 11/11/2023 1 1 Question Answer Referral Priority Within 3 days (urgent) Where should this appointment be scheduled? [facility] Program Type Chronic Disease Management Chronic Disease Management Diabetes in Alarm Settings Standard per protocol Comments GDM - Has One Touch Verio. Reason for Visit * Reason Comments Consultation Supervision of High Risk * Evaluate & Treat - Unlimited Visits (Within 10 days (routine)) - Authorized Specialty Diagnoses / Procedures Referred By Bela armstrong Referred To Contact Obstetrics/Gynecology / Maternal Medicine Diagnoses Diet controlled gestational diabetes mellitus (GDM) in third trimester Awilda Retana CRNP [address] [place] [address] Referral ID Status Reason Start Date Expiration Date Visits Requested Visits Authorized [id number] Authorized Specialty Services Required 11/07/[phone] Encounter Details Date Type Department Care Team (Late st Contact Info) Description 11/11/2023 9:00 AM EDT Telemedicine Regional Operations Director Obstetric MFM [address], [place] [address] [place] [id number] [address], DARLINE [address] [place] [address] Diet controlled gestational diabetes mellitus (GDM) in third trimester*; Antepartum anemia complicating Allergies No known active [...] MCG Oral Tablet Take by mouth. Active WuiperToinvino Verio Flex System w/Device Kit Use to test blood sugars 4 times daily (fasting, 1 hour after breakfast, lunch, and dinner) 1 Kit 11/07/2023 Active WuiperTouch Verio In Vitro Strip (Glucose Blood) Use to test blood sugars 4 times daily (fasting, 1 hour after breakfast, lunch, and dinner) 125 Strip 6 11/07/2023 Active WuiperTouch Delica Lancets 30G Use to test blood [...] 11/11/23: MFM ADAPT consult complete. Enrolled in [facility]. Instructions provided to report blood [...] Report levels to MFM (Maternal- Medicine) via [facility]. Recommend nutrition consult with RDN (Registered Dietitian Hooker Inspector). Lifestyle changes are also indicated including optimizing [...] and folate levels and referral to a ent consultant. If hemoglobin levels are below 8 g/dl, we recommend Maternal Medicine ultrasound for growth every 4 weeks after 24 weeks. Consider a blood transfusion if hemoglobin levels fall below 6 g/dL. ([employer] Bulletin Number 95, September,). Consider Venofer [...] money to get more. Never true 09/12/2023 Dairy Depression Scale Answer Date Recorded Dairy Depression Scale Total 5 06/17/2023 The thought [...] as of this encounter Progress Notes * Melissa Lane CRNP - 11/11/2023 9:27 AM EDT MATERNAL MEDICINE CONSULT Julieta Cordon 11/11/23 REFERRING PROVIDER: Awilda GREGORIO Patient location: HOME. I was not in a hospital or clinic location. After connecting through [employer], patient was verified with two unique identifiers. 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 Methods to assure confidentiality were taken. Patient acknowledged consent and understanding of privacy and security of the Telemedicine visit. The patient agreed to participate. Julieta Cordon is a 28 year old with intrauterine at 29w4d (Estimated Date of Delivery: 01/23/24 by exact LMP) who presents today for an MFM consult due to recent diagnosis of gestational diabetes mellitus (GDM). HPI/CURRENT : pre- BMI=normal (47.6 kg (105 lb); 5' 2"); FOB #1; complicated by above. Genetic testing: cffDNA (Qnatal) low-risk, female. MSAFP negative for ONTD. OB [facility] Problems (from 06/03/23 to present) Problem Noted Resolved Diet controlled gestational diabetes mellitus (GDM) in third trimester Overview Signed 11/11/2023 9:[address] CRNP Gestational diabetes diagnosed at 29 weeks by [...] blood sugars each week for MFM review. Antepartum anemia complicating Overview Signed 11/04/2023 8:37 AM by Awilda Retana CRNP Anemia Labs Lab Results Component Value Date/Time HGB 10.6 (L) 11/03/2023 10:08 AM HCT 32.7 (L) 11/03/2023 10:08 AM FERRITIN - [facility] 6 (L) 11/03/2023 10:08 AM VITAMIN B12 - [facility] 281 11/03/2023 10:08 AM FOLIC ACID - [facility] >20.0 11/03/2023 10:08 AM IRON BINDING CAPACITY - [facility] 506 (H) 11/03/2023 10:08 AM MCV 90.6 11/03/2023 10:08 AM Blood management referral placed Supervision of normal first , antepartum I have reviewed this patient's previous OB ultrasound reports, pertinent labwork and testing provided by her referring OB provider. Current Outpatient Medications Medication Sig Dispense Refill B-12 1000 MCG Oral Tablet Take by mouth. Omeprazole Magnesium 20 MG Oral Tablet Delayed Release (PriLOSEC OTC) Take 1 Tablet by mouth in themorning. WuiperTouch Delica Lancets 30G Use to test blood sugars 4 times daily (fasting, 1 hour after breakfast, lunch, and dinner) 200 Each 6 OneTouch Verio Flex System w/Device Kit Use to test blood sugars 4 times daily (fasting, 1 hour after breakfast, lunch, and dinner) 1 Kit 0 OneTouch Verio In Vitro Strip (Glucose Blood) Use to test blood sugars 4 times daily (fasting, 1 hour after breakfast, lunch, and dinner) 125 Strip 6 28-0.8 MG Oral Tablet Take by mouth. Promethazine HCl 25 MG Oral Tablet (Phenergan) Take 1 Tablet by mouth every 6 hours as needed for Nausea. (Patient not taking: Reported on 10/13/2023) 30 Tablet 1 ZyrTEC Allergy 10 MG Oral Capsule (Cetirizine HCl) Take 1 Capsule by mouth in the morning. No current facility-administered medications for this visit. Review of patient's allergies indicates: No Known Allergies OB History Para Term AB Living 1 0 0 0 0 0 SAB IAB Ectopic Multiple Live Births 0 0 0 0 0 # Outcome Date GA Lbr Daniel/2nd Weight Sex Type Anes PTL Lv 1 Current Obstetric Comments 2023: FOB #1 Sanford Nolen 27 YO. Healthy. No children from outside of this relationship. 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 08/2018 Gestational diabetes 2023 Past Surgical History: Procedure Laterality Date DENTAL SURGERY PROCEDURE NEC [place] teeth Family History Problem Relation Name Age of Onset Thyroid Disorder Mother No Known Problems Father No Known Problems Sister Cancer Grandfather (Maternal) Colon cancer Grandfather (Maternal) Social History Tobacco Use Smoking status: Never Smokeless tobacco: Never Vaping Use Vaping status: Never Used Substance Use Topics Alcohol use: No Drug use: No REVIEW OF SYSTEMS: headaches: no nausea/vomiting: denies reports movement: yes abdominal pain/tenderness/cramping/contractions: no vaginal bleeding: no vaginal leaking of fluid: no all other systems negative PHYSICAL EXAM: LMP 04/18/2023 (Exact Date) General: Well appearing Psych: Alert to time, place, and person and Pleasant DISCUSSION/RECOMMENDATIONS: Problem List Items Addressed This Visit OB Nazario Barragan Antepartum anemia complicating CONSIDERATIONS: Severe maternal anemia (hemoglobin levels below [...] blood conservation program after oral therapy has failed)as indicated to keep hemoglobin level above 11 g/dl during . Oral iron should be taken with orange juice. If anemia studies do not reflect iron deficiency anemia we recommend checking TSH, B12 and folate levels and referral to a ent consultant. If hemoglobin levels are below 8 g/dl, we recommend Maternal Medicine ultrasound for growth every 4 weeks after 24 weeks. Consider a blood transfusion if hemoglobin levels fall below 6 g/dL. ([employer] Bulletin Number 95, September,). Consider Venofer transfusions if patient labs supportive of iron deficiency anemia with dosing of 300 mg IV weekly x 3 weeks Diet controlled gestational diabetes mellitus (GDM) in third trimester - Primary CONSIDERATIONS: Reviewed etiology and risks associated with gestational diabetes mellitus (GDM), including risks topregnancy, fetus, and maternal progression to Type 2 [...] Recommend nutrition consult with RDN (Registered Dietitian Hooker Inspector). Lifestyle changes are also indicated including optimizing gestational weight gain and physical activity of 30 minutes per day, if not otherwise contraindicated in . Insulin is preferred if medications are indicated to optimize euglycemia. Metformin (preferred overglyburide) may also be used in some circumstances. [...] admission (or 6-8 weeks if not completed). Relevant Orders REMOTE PATIENT MONITORING REFERRAL Follow up ultrasound with Maternal Medicine is scheduled on 11/[address] Johnson for anatomy scan secondary to gestational diabetes mellitus. Patient is aware of upcoming MFM appointment. DARLINE Strickland 11/11/2023 9:27 AM documented in this encounter Miscellaneous Notes * Pt Handout (on AVS) - Melissa Lane CRNP - 11/11/2023 9:38 AM EDT Images from the original note were not included. Managing Gestational Diabetes - Video Being diagnosed with gestational diabetes can be stressful. But with proper care and management, you can stay healthy and deliver a healthy baby. In many cases, gestational diabetes goes away on its own after the mother gives . To view the video go to this web address: [email or web address] Or, scan this QR code with your smart phone 2019 23andMe. * Pt Handout (on AVS) - Melissa Lane CRNP - 11/11/2023 9:38 AM EDT Images from the original note were not included. [id number] If You Need Extra Insulin During During , your body may not be able to make enough insulin to control your blood sugar. If this happens, you may need extra insulin. This will help control your blood sugar. In some cases, anoral antidiabetic medicine may be used. An example of this is glyburide. But insulin is used most often. Insulin is a natural substance. It is not addictive. It does not harm your baby. It does not cross the placenta. That means it does not affect your baby the way taking a pill would. If you did not have diabetes before , you will likely stop taking insulin after your baby is born. Learning to use insulin Your healthcare provider will prescribe your insulin. They will teach you how to give yourself a shot. With practice, you?ll get comfortable doing it. You will need to inject it 1 or more times a day. Insulin is injected into fatty tissue. The best site for a shot of insulin is in your belly area. But you can also do the shot in your upper arm or thigh. Talk with your healthcare provider about where to give the shot. Here are some steps to follow: Choose an injection site. Clean it with alcohol if the skin is dirty. Pinch a fold of skin. Insert the needle at a steep angle. The best angle will depend on your body type, the length of the needle, and where you put the shot. Your healthcare provider will help youfind the best angle. Keeping the skin pinched, push the plunger down. This injects the insulin. Release the pinched skin. Remove the needle from your skin. If you see blood or insulin leaking from your skin, press firmly on the site for 5 to 8 seconds. Don?t rub your skin in the area. [place] and syringes should be used only 1 time. After using, throw them away in a puncture-proof container. This is known as a sharps container. Don?t throw needles in your household trash. Talk to your healthcare provider if you have any questions or concerns about taking insulin. The best site for injecting insulin is your abdomen. But you can also inject into an upper arm or thigh. Talk with your health care provider about where to give yourself a shot. Finding the right dose for you Your healthcare provider will work with you to find the right dose of insulin for you. It may take time. This is because you need to balance your insulin with your food and exercise. And your body needs more insulin as your baby grows. You must check your blood sugar several times a day. This is to be sure your insulin is working. Ifyour blood sugar is too high or too low, your healthcare provider will adjust your dose. Low blood sugar Taking insulin puts you at risk of low blood sugar. Symptoms of low blood sugar include: Shakiness Dizziness Weakness Confusion If you feel any of these symptoms, check your blood sugar right away. Always treat low blood sugar quickly. To do this, eat 15 grams of fast-acting sugar, such as: 3 glucose tablets 5 to 6 pieces of hard candy 1 to 2 tablespoons of honey or sugar cup fruit juice or regular, nondiet soda 1 cup fat-free milk Then check your blood sugar again in 15 minutes. If your blood sugar is still low, eat another 15 grams of sugar. If your blood sugar does not return to the target range in 30 minutes, call your healthcare provider. Last Reviewed Date: 02/14/202219995373-5359 [employer]. All rights reserved. This information is not intended as a substitute for professional medical care. Always follow your healthcare professional's instructions. * Pt Handout (on AVS) - Melissa Lane CRNP - 11/11/2023 9:37 AM EDT Images from the original note were not included. 133[address] Low Blood Sugar (Hypoglycemia) Low blood sugar (hypoglycemia) means you don?t have enough sugar (glucose) in your bloodstream to help your body work. This may be a level of sugar lower than 70 mg/dL. But talk with your healthcare provider about your own target range. Ask what level is too low for you. Diabetes doesn?t cause low blood sugar. But some treatments for diabetes may raise the risk for it.These include oral medicines or insulin. Skipping or delaying meals can also increase your risk forhypoglycemia. In severe cases, low blood sugar may make you pass out or have a seizure. This is a medical emergency. So always treat low blood sugar right away as noted below. This is to prevent moreserious problems. Safety note Always carry a source of fast-acting sugar and a snack in case you have low blood sugar. Examples include: 4 glucose tablets 1 tube of glucose gel 1 packet of sugar or honey 2 tablespoons of raisins Symptoms of low blood sugar If you have low blood sugar, you may have 1 or more of these symptoms: Shakiness Dizziness Cold, clammy skin or sweating Hunger Headache Nervous feeling A hard, fast heartbeat Weakness Confusion or irritability Trouble seeing or talking Having nightmares or waking up confused or sweating Numbness or tingling in the lips or tongue What to do If you think you have low blood sugar: 1. Check your sugar. First, check your blood sugar. If it's too low (out of your target range), eator drink 15 to 20 grams of fast-acting sugar. This may be 3 to 4 glucose tablets, or 4 ounces (halfa cup) of fruit juice or regular (not diet) soda, or 1 tablespoon of honey. Don?t take more than this. If you do, your blood sugar may go too high. 2. Don?t have protein. Don't eat or drink things high in protein to treat low blood sugar. This includes milk, nuts, and meat. Protein may increase your insulin response. It may lower your blood sugar even more. 3. Check again. Wait 15 minutes. Then recheck your blood sugar if you can. If your blood sugar is still too low, repeat the steps above until your blood sugar is back to normal. 4. Eat a snack. When your blood sugar is back at target range, eat a snack or meal. 5. Get help if needed. If you still don?t feel well and your blood sugar is still low, have someonedrive you to the emergency room. Preventing low blood sugar Things you can do include the below: If your diabetes needs a strict treatment plan, eat meals and snacks at the same times each day.Don?t skip meals. If you have trouble paying for food, talk with your healthcare team for help. If your treatment plan lets you change when and what you eat, learn how to change the time and dose of your rapid-acting insulin to match. Ask your healthcare provider if it's safe to drink alcohol. But never drink on an empty stomach.Alcohol may keep you from feeling the first symptoms of low blood sugar. Take your medicine at the prescribed times. Always carry a source of fast-acting sugar and a snack when you?re away from home. If you have had repeated low blood sugar episodes: You may not notice the symptoms of low blood sugar until it gets to a dangerous level. Work withyour provider for the best ways to safely manage your blood sugar. Ask your healthcare provider if you can take less or different medicine. Many newer types of diabetes medicines have less risk of low blood sugar. Talk with your provider about a continuous glucose monitor. This is a device that tracks your blood sugar. Ask your provider if you should be prescribed a medicine called glucagon. Glucagon is a hormone that quickly raises blood sugar. It can reverse serious symptoms. It is available as an injection oras a powder that's put into the nose. Ask your healthcare provider which type of glucagon is best for you and how to use it. Other safety tips Make sure to: Carry a medical ID card or wear a medical alert bracelet or necklace. It should say that you have diabetes. It should say what to do if you pass out or have a seizure. Teach your family, friends, and coworkers the signs of low blood sugar. Tell them what to do if your blood sugar falls very low and you can?t treat yourself. Keep a glucagon emergency kit handy. Show your family, friends, and coworkers how and when to use it. Check it often. Replace the glucagon before it expires. Talk with your healthcare team about other things you can do to prevent low blood sugar. These include using new ways of continuous glucose tracking. Important If you have unexplained low blood sugar or have it several times, call your healthcare provider. Last Reviewed Date: 11/15/202219995701-4673 [employer]. All rights reserved. This information is not intended as a substitute for professional medical care. Always follow your healthcare professional's instructions. * Pt Handout (on AVS) - Melissa Lane CRNP - 11/11/2023 9:37 AM EDT Images from the original note were not included. [id number] Gestational Diabetes: After Your blood sugar will most likely return to normal after delivery. But gestational diabetes is a warning sign that you are at risk of getting diabetes later in life. You?re also more likely to have gestational diabetes with your next . But you can take steps to reduce these risks. Taking care of yourself Even if your blood sugar goes back to normal, you still need to take care of yourself. This will help prevent diabetes later in life. You'll need to: Keep your weight down. Eating food that is low in fat and sugar can help you control your weight. If you?re overweight, your risk of getting diabetes in 10 to 15 years more than doubles. Keeping your weight down also reduces your risk of gestational diabetes in your next . Get regular exercise. Exercise helps lower your blood sugar. It can also help you control your weight. Try to work up to at least 150 to 300 minutes of moderate exercise every week. This is at least 30 minutes each day. Have your blood sugar checked. Make an appointment to have your blood sugar checked 6 to 8 weeksafter delivery. If your blood sugar is still high, you may have type 2 diabetes. Your healthcare provider will tell you more about how to manage diabetes long-term. Have regular diabetes screenings. Have blood tests every year, or as often as your healthcare provider advises. Breastmilk is the best food for your baby. Giving only breastmilk is advised for at least your baby's first 6 months. may also help lower your blood sugar. Your healthcare provider can show you how to breastfeed. Be sure to eat healthy foods and drink extra water while you?re . You may find exercise easier right after . This is when your breasts may feel lokie driver. Planning a future Your blood sugar needs to be back to normal before you get again. Have your blood sugar checked before you plan your next . And remember that it?s possible to get again soon after you give . Talk with your healthcare provider about the best method of control for you and your partner. Last Reviewed Date: 04/17/202119993071-2982 [employer]. All rights reserved. This information is not intended as a substitute for professional medical care. Always follow your healthcare professional's instructions. * Pt Handout (on AVS) - Melissa Lane CRNP - 11/11/2023 9:37 AM EDT [id number] Diet: Diabetes Food is an important tool that you can use to control diabetes and stay healthy. Eating well-balanced meals in the correct amounts will help you control your blood glucose levels and prevent low blood sugar reactions. It will also help you reduce the health risks of diabetes. There is no one specific diet that is right for everyone with diabetes and you can eat a variety of foods. But there are general guidelines to follow. A registered dietitian (RD) will create a tailored diet approach that?sjust right for you. They will also help you plan healthy meals and snacks. If you have any questions, call your dietitian for advice. Guidelines for success Talk with your healthcare provider before starting a diabetes diet or weight loss program. If you haven't talked with a dietitian yet, ask your provider for a referral. The following guidelines can help you succeed: Select foods from the 6 food groups below. Your dietitian will help you find food choices withineach group. He or she will also show you serving sizes and how many servings you can have at each meal. o Grains, beans, and starchy vegetables o Vegetables o Fruit o Milk or yogurt o Meat, poultry, fish, or tofu o Healthy fats Check your blood sugar levels as directed by your provider. Take any medicine as prescribed by your provider. Learn to read food labels and pick the right portion sizes. Limit carbohydrates at each meal to help manage your diabetes. The carbohydrates you eat become glucose in the blood. This does not mean you can't eat carbohydrates. Talk with your healthcare provider about how many grams of carbohydrates are recommended for you at each meal. Eat 3 meals a day, at consistent times. Don't skip meals. If you are hungry between meals, eat a small, low-carbohydrate snack. Talk with your healthcare provider if you drink alcohol. Alcohol can have unpredictable effects on blood glucose. It's also high in empty calories and can raise a type of blood fat called triglycerides. Drink water or calorie-free diet drinks instead. Eat less fat to help lower your risk of heart disease. Use nonfat or low-fat dairy products and lean meats. Avoid fried foods. Use cooking oils that are unsaturated, such as olive, canola, or peanut oil. Don't eat foods with added salt. Salt can contribute to high blood pressure, which can cause heart disease. People with diabetes already have a risk for high blood pressure and heart disease. Stay at a healthy weight. If you need to lose weight, cut down on your portion sizes. But never skip meals. Exercise is an important part of any weight management program. Talk with your provider about an exercise program that?s right for you. For more information about the best diet plan for you, talk with an RD. To find an RD in your area, contact: o Academy of Nutrition and Dietetics at www.eatright.org o [employer] at www.diabetes.org or 677-563-7579 o Association of Diabetes Care and Education Specialists at www.diabeteseducator.org/ Last Reviewed Date: 03/17/202119991081-6901 [employer] All rights reserved. This information is not intended as a substitute for professional medical care. Always follow your healthcare professional's instructions. * Pt Handout (on AVS) - Melissa Lane CRNP - 11/11/2023 9:37 AM EDT Images from the original note were not included. Diabetes in - Video Two types of diabetes can occur during ?pre-existing diabetes, which will continue after , and gestational diabetes, which will go away after the baby is born. Diabetes is a condition in which your body doesn?t make enough insulin or you can?t use it correctly. This video offers details on how these two types diabetes can affect a . To view the video go to this web address: [email or web address] Or, scan this QR code with your smart phone Last Reviewed Date: 06/16/201919991628-9754 [employer]. All rights reserved. This information is not intended as a substitute for professional medical care. Always follow your healthcare professional's instructions. * Pt Handout (on AVS) - Melissa Lane CRNP - 11/11/2023 9:37 AM EDT Images from the original note were not included. [address] Asthma and Now that you?re , you may be concerned about how asthma will affect your health and the health of your baby. But asthma doesn?t have to stop you from having a healthy . Managing yourasthma can keep you and your baby healthy. During your , work with your healthcare provider to keep your asthma under good control. Why managing asthma is important during When you?re and have an asthma flare-up, it affects both you and your baby. The baby gets oxygen from your blood to grow and develop normally. Severe asthma can cause problems getting oxygento your baby. When asthma isn?t controlled, problems that can develop include: Baby being born too early (prematurity) Need to deliver by Baby being smaller than normal High blood pressure or preeclampsia in the mother Work with your healthcare providers to manage your asthma You likely have a healthcare provider (HCP) who helps you manage your asthma. During your , continue to see this HCP regularly. They can continue to keep track of your asthma. And medicines can be adjusted as needed. Be sure that this HCP is in contact with the HCP who is caring for your . Also be sure both providers know what asthma medicines you take. If you don?t have an HCP taking care of your asthma, tell the provider who cares for your . Prevent flare-ups Here are tips to prevent flare-ups: Continue using asthma medicines as prescribed. Follow your HCP?s directions about using asthma medicines. These will likely be inhaled medicines. These have little or no chance of harming you or your baby. Keep track of your lung function. Lung function tests help measure how well your lungs are working. The test results tell you and your providers if you are getting enough oxygen. You may be testedat your provider?s office or at a hospital. You may also be directed to keep track of yourself at home. This is done using a peak flow meter. Your provider will tell you when and how often you need to use the meter. Control asthma triggers. These are things that cause your airways to react and lead to an asthmaattack (flare-up). Triggers can include smoke, scents, and chemicals. They also include allergies to things like pollen, pets, and dust mites. A flare-up can also be set off by exercise and changes in the weather. Having a cold or the flu can also trigger a flare-up. To prevent the flu, get a flu shot. If you?ve been getting allergy shots, you should continue to do so. But you should not get allergy shots for the first time when you?re . Keep track of the health of your baby Your HCP will keep track of your baby?s health closely during your . If your asthma is notwell controlled, this becomes even more important. So keep all your appointments. Keeping track includes: Regular ultrasound tests. Ultrasound is a safe test that allows you and your HCP to see an imageof your baby in the uterus. The ultrasound shows your baby?s development, including if the baby?s organs are growing normally. nonstress test. This test may be done when you are around your third trimester. It checks if your baby is receiving enough oxygen by keeping track of the baby?s heart rate. Normally, a baby?s heart rate goes up when the baby moves. If the baby?s activity is low, it may mean that the baby isn?t getting enough oxygen. movement counting. Your HCP may tell you to track your baby?s movements by doing kick counts. This is done by counting the number of movements (kicks) that the baby makes over a certain time. Your provider will let you know how often to count. You?ll also be told when you should callthem. If the baby?s movement pattern changes or decreases, more tests will likely be done to check t he baby?s health. Know your plan for labor and delivery Before your due date, talk with your HCP about your labor and delivery plan. You will likely keep taking your asthma medicines during this time. These prevent a flare-up. They can also help relieve aflare-up if you have one. Your provider will tell you more about this. Precautions Call your healthcare provider right away if any of the following occur: You have wheezing that doesn't go away after you take medicine. Your asthma medicines stop working. You cough up bloody, green, or yellow mucus (signs of a lung infection). You have a temperature above 100.4F (38C) with shortness of breath or a cough. Your baby?s movement pattern changes or decreases. Last Reviewed Date: 02/14/202219999044-0044 [employer]. All rights reserved. This information is not intended as a substitute for professional medical care. Always follow your healthcare professional's instructions. * Pt Handout (on AVS) - Melissa Lane CRNP - 11/11/2023 9:37 AM EDT [id number] Anemia During Anemia is a condition in which the red blood cell count is too low. In women, this is often caused by not having enough iron in the blood. Anemia is common in and very easy to treat. Why you need iron While , your body uses iron to make red blood cells for you and your baby. These cells bring oxygen to your baby and to the rest of your body. Not having enough red blood cells can cause yourbaby to be born too small. But this is rare, as it?s easy for you to get enough iron. Testing for anemia The only way to know if you have anemia is to have a simple test called a CBC (complete blood count). This is a routine test that will be done at one of your first visits. This test may be done again, at about week 26 to week 28. Treating anemia If you have anemia due to low iron content, follow the advice of your healthcare provider. Eating foods high in iron and taking supplements can help you get the iron you need. Eating foods high in iron Green leafy vegetables and nuts are a good source of iron. Eat foods that are high in iron such as: Red meat (limit organ meats such as liver) Seafood (be sure it?s fully cooked), and don't eat fish that are high in mercury, such as swordfish, tilefish, arash mackerel, and shark Tofu Eggs Green, leafy vegetables Whole grains and iron-fortified cereals Dried fruits and nuts Taking iron supplements In most cases, a vitamin can provide enough iron. But if you need more, your healthcare provider may prescribe an iron supplement. Swallow iron pills with a glass of orange or cranberry juice. The vitamin C in these fruit juices can help your body absorb iron. But don?t take your iron pills with juices that have calcium added to them. They can keep your body from absorbing the iron. Iron supplements Iron supplements may have certain side effects. They may cause your stools to turn black, and make you feel sick to your stomach or constipated. Here are some tips that may help you limit side effects: Start slowly. Take 1 pill a day for a few days. Then work up to your prescribed dose over time. Take your pills with meals and not at bedtime. Increase the fiber in your diet. Eat more whole grains, fruits, and vegetables. Do mild exercise each day. If advised by your healthcare provider, take a stool softener. Last Reviewed Date: 08/15/202119998690-2961 The [employer]. All rights reserved. This information is not intended as a substitute for professional medical care. Always follow your healthcare professional's instructions. * Assessment & Plan Note - Melissa Lane CRNP - 11/11/2023 9:27 AM EDT Associated Problem(s): Antepartum anemia complicating CONSIDERATIONS: Severe maternal anemia (hemoglobin levels below [...] blood conservation program after oral therapy has failed)as indicated to keep hemoglobin level above 11 g/dl during . Oral iron should be taken with orange juice. If anemia studies do not reflect iron deficiency anemia we recommend checking TSH, B12 and folate levels and referral to a ent consultant. If hemoglobin levels are below 8 g/dl, we recommend Maternal Medicine ultrasound for growth every 4 weeks after 24 weeks. Consider a blood transfusion if hemoglobin levels fall below 6 g/dL. ([employer] Bulletin Number 95, September,). Consider Venofer transfusions if patient labs supportive of iron deficiency anemia with dosing of 300 mg IV weekly x 3 weeks * Assessment & Plan Note - Melissa Lane CRNP - 11/11/2023 9:10 AM EDT Associated Problem(s): Diet controlled gestational diabetes mellitus (GDM) in third trimester CONSIDERATIONS: Reviewed etiology and risks associated with gestational diabetes mellitus (GDM), including risks topregnancy, fetus, and maternal progression to Type 2 [...] Recommend nutrition consult with RDN (Registered Dietitian Hooker Inspector). Lifestyle changes are also indicated including optimizing gestational weight gain and physical activity of 30 minutes per day, if not otherwise contraindicated in . Insulin is preferred if medications are indicated to optimize euglycemia. Metformin (preferred overglyburide) may also be used in some circumstances. [...] admission (or 6-8 weeks if not completed). documented in this encounter Plan of Treatment Upcoming Encounters Date Type Department Care Team (Late st Contact Info) Description 11/11/2023 4:00 PM EDT Pharmacy Pharmacy, [id number] [address] 11/18/2023 3:00 PM EDT Telemedicine Virtual, Nutrition Services [address] [place] [address] Daphne Cash, RDN [address] [place] [address] 11/24/2023 10:00 AM EDT Office Visit Gynecology/Obstetrics [facility] [address] [place] [address] Verito Plummer CRNP [address] [facility] [place] [address] 11/25/2023 8:30 AM EDT Office Visit Regional Operations Director Obstetrics Maternal Medicine, [address] [address] Monse Johnson DO [facility] [place] [address] 11/25/2023 8:30 AM EDT [facility] [address] [address] 12/08/2023 8:00 AM EDT Office Visit Gynecology/Obstetrics Josefa Barragan [address] [place] [address] Awilda Retana CRNP [address] [place] [address] Scheduled Referrals Name Type Priority Associated Diagnoses Orde r Schedule REMOTE PATIENT MONITORING REFERRAL Referral Within 3 days (urgent) Diet controlled gestational diabetes mellitus (GDM) in third trimester Ordered: 11/11/2023 Health Maintenance Due Date Last Done Comments [...] diabetes mellitus (GDM) in third trimester- Primary Antepartum anemia complicating Anemia, antepartum documented in this encounter Additional Health Concerns Active Problems Noted Date Diagnosed Date OB Reminders 11/03/2023 documented as of this encounter Care Teams Painter Aircraft Relationship Specialty Start Date End Date Margo Avila DO [address] [facility] [address] [place] [address] PCP - General Pediatrics 04/04/15 documented as of this encounter
--- OUTSIDE RECORDS SUMMARY | 2024-01-16 04:23 | External Medical Summary | Summary of Care ---
Author Name Unknown Organization [facility] Address [address] [facility] [place] [address] Phone [phone] Care Team Providers Care Stockroom Selector Name Role Phone Avila Margo Shari KELLEY Primary Care Provider [phone] Reason for Visit * Reason Comments Return Visit Encounter Details Date Type Department Care Team (Late st Contact Info) Description 11/07/2023 7:45 AM EDT Office Visit Gynecology/Obstetric s Anitanathaniel Barragan [address] [place] [address] Twila Mclean PA-C [address] [place] [address] Supervision of normal first , antepartum*; Antepartum anemia complicating ; Need for bbximydadh-nedpfew-ze rtussis (Tdap) vaccine Allergies No known active allergiesdocumented as of [...] MCG Oral Tablet Take by mouth. Active documented as of this encounter (statuses [...] money to get more. Never true 09/12/2023 [place] Depression Scale Answer Date Recorded [place] Depression Scale Total 5 06/17/2023 The thought [...] Sign Reading Time Taken Comments Blood Pressure 108/60 11/07/2023 7:31 AM EDT Pulse - - Temperature - - Respiratory Rate - - Oxygen Saturation - - Inhaled Oxygen Concentration - - Weight 61.2 kg (135 lb) 11/07/2023 7:31 AM EDT Height - - Body Mass Index 24.69 09/12/2023 4:21 PM EDT documented in this encounter Progress Notes * Twila Mclean PA-C - 11/07/2023 7:45 AM EDT 28w6d Completing 3 hour gtt today. Referred for IV iron. Hgb 10.6 Counseled on Tdap, accepts. RTC in 2 weeks Twila Mclean PA-C * Radha Duarte LPN - 11/07/2023 7:31 AM EDT 29w0d Denies vaginal bleeding/rom + movement Gtt today Tdap today documented in this encounter Nursing Notes * Radha Duarte LPN - 11/07/2023 7:45 AM EDT Patient here for tdap injection. Patient doing well no complaints. Injection given IM as ordered. Patient tolerated well. Patient to follow up as directed. Patient instructed to call if any complications. Patient verbalized understanding of instructions given. Injection site: Left Deltoid Medication Source: Dispensed stock medication documented in this encounter Plan of Treatment Upcoming Encounters Date Type Department Care Team ([facility] st Contact Info) Description 11/11/2023 4:00 PM EDT Pharmacy Pharmacy, [address] [address] Clinic, [address] [address] Health Maintenance Due Date Last Done Comments [...] antepartum- Primary Antepartum anemia complicating Anemia, antepartum Need for dyfscvosel-woqcjak-pvsowpbbz (Tdap) vaccine Need for prophylactic vaccination with combined pubpjiyaxp-uqqpxwv-bcwxmkxzn (DTP) vaccine documented in this encounter Additional Health Concerns Active Problems Noted Date Diagnosed Date OB Reminders 11/03/2023 documented as of this encounter Care Teams Stockroom Selector Relationship Specialty Start Date End Date Margo Avila DO [address] [facility] [address] [place] [address] PCP - General Pediatrics 04/04/15 documented as of this encounter
--- OUTSIDE RECORDS SUMMARY | 2024-01-16 04:23 | External Medical Summary ---
Author Name Unknown Address Unknown Organization K0G:[facility] - [address] [place] [address] Laboratory Report Ordering Provider Test Date Status MELISSA LAM 11/07/2023 10:06:04 Final Observation Date Value Abnormality Reference (Units ) Status Glucose [Mass/volume] in Serum or Plasma --3 hours post dose glucose 11/07/2023 10:06:04 169 Above high normal 70-139 (mg/dL) Final Performing Location [facility] - [address] [place] [address]
--- OUTSIDE RECORDS SUMMARY | 2024-01-16 04:23 | External Medical Summary | Summary of Care ---
Author Name Unknown Organization [facility] Address [address] [facility] [place] [address] Phone [phone] Care Team Providers Care Accounting Support Specialist Name Role Phone Avila Margo Shari KELLEY Primary Care Provider [phone] Encounter Details Date Type Department Care Team (Late st Contact Info) Description 11/11/2023 Orders Only Gynecology/Obstetrics [facility] [address] [place] [address] Awilda Retana CRNP [address] [place] [address] Iron deficiency anemia, unspecified iron deficiency anemia [...] MCG Oral Tablet Take by mouth. Active Kloudless Flex System w/Device Kit Use to test blood sugars 4 times daily (fasting, 1 hour after breakfast, lunch, and dinner) 1 Kit 11/07/2023 Active Kloudless In Vitro Strip (Glucose Blood) Use to test blood sugars 4 times daily (fasting, 1 hour after breakfast, lunch, and dinner) 125 Strip 6 11/07/2023 Active Giftiki [email or web address] Lancets 30G Use to test blood sugars [...] Recommend nutrition consult with RDN (Registered Dietitian Java J2Ee Technical Lead). Lifestyle changes are also indicated including optimizing [...] and folate levels and referral to a cigar brander. If hemoglobin levels are below 8 g/dl, we recommend Maternal Medicine ultrasound for growth every 4 weeks after 24 weeks. Consider a blood transfusion if hemoglobin levels fall below 6 g/dL. ([employer] Practice Bulletin Number 95, September,). Consider Venofer [...] mRNA, LNP-s, No Pre serve, 2-Dose Series (zPerfectGift) 07/28/2020,07/07/2020 DTaP Dipth/Tet/Acell Pertussis (Infanrix), Peds 07/21/2000,01/03/1997,01/05/1996,11/03,1995 [...] money to get more. Never true 09/12/2023 [place] Depression Scale Answer Date Recorded [place] Depression Scale Total 5 06/17/2023 The thought [...] Description 11/11/2023 4:00 PM EDT Pharmacy Pharmacy, [address] [address] Clinic, Anemia [address] [place] [address] Iron deficiency anemia, unspecified iron deficiency anemia type* 11/18/2023 3:00 PM EDT Telemedicine Virtual, Nutrition Services [address] [place] [address] Daphne Cash, RDN [address] [place] [address] [place] [address] 11/20/2023 10:00 AM EDT Pharmacy Pharmacy, [address] [address] Clinic, Anemia [address] [place] [address] 11/24/2023 10:00 AM EDT Office Visit Gynecology/Obstetric nathaniel Josefa Barragan [address] [facility] [place] [address] Verito Plummer CRNP [address] [place] [address] 11/25/2023 8:30 AM EDT Office Visit Power Ballast Machine Operator Obstetrics Maternal Medicine, [address] [address] Monse Johnson, [address] [place] [address] 11/25/2023 8:30 AM EDT [facility] [place] [place] [address] [place] [address] 12/08/2023 8:00 AM EDT Office Visit Gynecology/Obstetric s Josefa Barragan [address] [facility] [place] [address] Awilda Retana CRNP [address] [place] [address] Health Maintenance Due Date Last Done Comments Depression Screening 04/01/2015 04/01/2014 COVID-19 Vaccine (2022- season) 2022 07/28/2020, 07/07/2020 [...] anemia, unspecified iron deficiency anemia type- Primary Iron deficiency anemia, unspecified iron deficiency anemia type- Primary documented in this encounter Additional Health Concerns Active Problems Noted Date Diagnosed Date OB Reminders 11/03/2023 documented as of this encounter Care Teams Accounting Support Specialist Relationship Specialty Start Date End Date Margo Avila DO [address] [facility] [address] [place] [address] PCP - General Pediatrics 04/04/15 documented as of this encounter
--- OUTSIDE RECORDS SUMMARY | 2024-01-16 04:24 | External Medical Summary ---
Author Name Unknown Address Unknown Organization K01:[facility] - [address] [place] [address] Laboratory Report Ordering Provider Test Date Status MELISSA LAM 11/03/2023 10:08:45 Final Observation Date Value Abnormality Reference (Units ) Status Vitamin B12 11/03/2023 10:08:45 [phone] (pg/mL) Final Performing Location [facility] - [address] [place] [address]
--- OUTSIDE RECORDS SUMMARY | 2024-01-16 04:24 | External Medical Summary ---
Author Name Unknown Address Unknown Organization : Laboratory Report Ordering Provider Test Date Status MELISSA LAM 08/21/2023 12:22:12 Final Observation Date Value Abnormality Reference (Units ) Status INTERPRETATION 08/21/2023 12:22:12 SEE BELOW Final Screen negative for open NTD . RISK FOR ONTD 08/21/2023 12:22:12 <1:5000 Final CALC'D GESTATIONAL AGE 0608/21/2023 12:22:12 17.9 Final AFP, SERUM 08/21/2023 12:22:12 40.8 (ng/mL) Final AFP MOM 08/21/2023 12:22:12 0.81 Final Reference Range:
NTD < 2.50
IDD <1.90
TWINS <4.00
TWINS IDD <3.50
TRIPLETS <4.50
The AFP test result indicates that this patient is
screen negative for open NTD. It should be noted
that normal test results can never guarantee the
of a normal baby and that 2-3% of newborns
have some type of physical or mental defect, many
of which are undetectable through any known
diagnostic technique.
This is a screening test, not a diagnostic test.
This risk assessment report is based in part on
demographic data provided by the ordering
physician. Please notify the laboratory promptly
if any data are incorrect. For assistance with
recalculations, please call your local [facility] laboratory. For assistance with
interpretation of these results, please contact
your Local [facility] genetic counselor or
call [phone] ([phone]).
Interpretive Cutoffs
Screen Positive for Open NTD:
> or = 2.50 adjusted MOM
> or = 1.90 adjusted MOM for insulin- dependent diabetics
> or = 4.00 adjusted MOM for twins
> or = 3.50 adjusted MOM for twins insulin-dependent diabetics
> or = 4.50 adjusted MOM for triplets
For additional information, please refer to
[email or web address]
(This link is being provided for
informational/educational purposes only.) DATE OF 08/21/2023 12:22:12 1995 Final COLLECTION DATE 08/21/2023 12:22:12 08/21/2023 Final MATERNAL WEIGHT 08/21/2023 12:22:12 121 (lbs ) Final EST'D DATE OF DELIVERY 08/21/2023 12:22:12 01/23/2024 Final TALI DETERMINED BY 08/21/2023 12:22:12 NOT GIVEN Final MOTHER'S ETHNIC ORIGIN 08/21/2023 12:22:12 WHITE Final NUMBER OF FETUSES 08/21/2023 12:22:12 1 Final INSULIN DEPEND DIABETIC 08/21/2023 12:22:12 NO Final REPEAT SPECIMEN 08/21/2023 12:22:12 NO Final HX OF NEURAL TUBE DEFECTS 08/21/2023 12:22:12 NO Final PREV DOWN SYND 08/21/2023 12:22:12 NO Final DONOR EGG 08/21/2023 12:22:12 NO Final DONOR AGE: EGG RETRIEVAL 08/21/2023 12:22:12 NOT GIVEN Final Test performed by [facility]
[address],
[place] [address]

Sleeping Car Conductor: Lizette Langley MD,PHD,MICHAEL
[facility],
[facility],
[address] [place], [place]
Carlos Collins M.D., Ph.D., Director of Laboratories
, MANAN [id number] Performing Location
--- OUTSIDE RECORDS SUMMARY | 2024-01-16 04:24 | External Medical Summary | Summary of Care ---
Author Name Unknown Organization [facility] Address [address] [facility] [address] Phone [phone] Care Team Providers Care Sewing Machine Attachment Tester Name Role Phone Margo Avila DO Primary Care Provider [phone] Encounter Details Date Type Department Care Team (Late st Contact Info) Description 09/29/2023 Telephone Gynecology/Obstetrics [facility] [address] [place] [address] Twila Mclean PA-C [address] [place] [address] Allergies No known active allergiesdocumented as of this encounter (statuses as of 09/29/2023) Medications Medication Sig Dispensed Refills Start Date End Date Status ZyrTEC Allergy 10 MG Oral Capsule (Cetirizine HCl) Take 1 Capsule by mouth in the morning. Active 28-0.8 MG Oral Tablet Take by mouth. Active Omeprazole Magnesium 20 MG Oral Tablet Delayed Release (PriLOSEC OTC) Take 1 Tablet by mouth in the morning. Active Promethazine HCl 25 MG Oral Tablet (Phenergan)Indication s:Encounter for supervision of normal first in first trimester,Vomiting of Take 1 Tablet by mouth every 6 hours as needed for Nausea. 30 Tablet 1 06/17/2023 Active documented as of this encounter (statuses as of 09/29/2023) Active Problems Problem Noted Date Diagnosed Date Supervision of normal first , antepartu m 06/17/2023 Candidiasis 03/30/2021 Anxiety disorder 03/30/2021 Hematuria 01/29/2013 Overview: ICD-10 update of inactive term Estimated Date of Delivery Comme nts Yes 01/23/2024 Based on last me nstrual period of 04/18/2023 documented as of this encounter (statuses as of 09/29/2023) Immunizations Name Administration Dates Next Due COVID-19 [...] money to get more. Never true 09/12/2023 [place] Depression Scale Answer Date Recorded [place] Depression Scale Total 5 06/17/2023 The thought [...] encounter Miscellaneous Notes * Telephone Encounter - Reyna Shah RN - 09/29/2023 11:08 AM EDT patient at 23w3d calling in concerned for DFM. Has not felt baby move since yesterday at 12:00pm. Patient advised that we typically do not get concerned with regular movement until 28 weeks , and it is also noted on recent US that placenta is anterior which can also inhibit her from feeling movement. Patient denies any other symptoms, denies bleeding/fluid leaking, or pain. Patient has been eating and drinking cold water all day and trying to focus on movements but has not felt any. Patient offered appointment today for FHT check. She is going to take this appt and will call back with any changes. documented in this encounter Plan of Treatment Upcoming Encounters Date Type Department Care Team (Late st Contact Info) Description 09/29/2023 3:30 PM EDT Office Visit Gynecology/Obstetrics [facility] [address] [place] [address] Twila Mclean PA-C [address] [place] [address] 10/13/2023 8:00 AM EDT Office Visit Gynecology/Obstetrics [facility] [address] [place] [address] Awilda Retana CRNP [address] [place] [address] Health Maintenance Due Date Last Done Comments [...] Not on filedocumented as of this encounter Care Teams Sewing Machine Attachment Tester Relationship Specialty Start Date End Date Margo Avila DO [address] [facility] [address] [place] [address] PCP - General Pediatrics 04/04/15 documented as of this encounter
--- OUTSIDE RECORDS SUMMARY | 2024-01-16 04:24 | External Medical Summary | Summary of Care ---
Author Name Unknown Organization [facility] Address [address] [address] Phone [phone] Care Team Providers Care Commercial Ocean Clammer Name Role Phone AvilaMargo DO Primary Care Provider [phone] Encounter Details Date Type Department Care Team (Late st Contact Info) Description 08/19/2023 Orders Only PATIENT PORTAL DO NOT DELETE THIS DEPT USED BY [place] [address] Allergies No known active allergiesdocumented as of this encounter (statuses as of 08/19/2023) Medications Medication Sig Dispensed Refills Start Date [...] as of this encounter (statuses as of 08/19/2023) Active Problems Problem Noted Date Diagnosed Date Supervision of normal first , antepartu m 06/17/2023 Candidiasis 03/30/2021 Anxiety disorder 03/30/2021 Hematuria 01/29/2013 Overview: ICD-10 update of inactive term Estimated Date of Delivery Comme nts Yes 01/23/2024 Based on last me nstrual period of 04/18/2023 documented as of this encounter (statuses as of 08/19/2023) Immunizations Name Administration Dates Next Due COVID-19 mRNA, LNP-s, No Pre serve, 2-Dose Series (Pfizer) 07/28/2020,07/07/2020 DTaP Dipth/Tet/Acell Pertussis (Infanrix), Peds 07/21/2000,01/03/1997,01/05/1996,11/03,1995 HPV Vaccine, 4-Valent 2011,02/27/2011,12/15 Haemophilius B (HIB), unspecified 01/10/1997 Hep A - Hepatitis A (ped/ado le, 1-18 Yrs) 06/23/2008,03/03/2007 Hepatitis B, 0-19 yrs 01/05/1996,1995,06/16 IPV [...] the money to buy more. Never true 06/16/19 24 Within the past 12 months, t he food you bought just didn't last and you didn't have money to get more. Never true 06/16/2023 [place] Depression Scale Answer Date Recorded [place] Depression Scale Total 5 06/17/2023 The thought of harming myself has occurred to me . Never 06/17/2023 Estimated Date of Delivery Comme nts Yes [...] Care Team (Late st Contact Info) Description 09/12/2023 8:15 AM EDT Imaging Radiology [facility] [address] [place] [address] 09/12/2023 10:45 AM EDT Office Visit Gynecology/Obstetrics [facility] [address] [place] [address] Awilda Retana CRNP [address] [place] [address] Health Maintenance Due Date Last Done Comments Depression Screening 04/01/2015 04/01/2014 DTaP,Tdap,and Td Vaccines (7 - Td or Tdap) 11/05/2016 11/05/2006, 07/21/2000, 01/03/1997, Additional history exists COVID-19 Vaccine ( season) 2022 07/28/2020, 07/07/2020 Influenza Vaccine (FLU shot) (Season Ended) 2023 01/08/2013, 01/08/2013, 12/24/2010, Additional history exists Pap Smear 06/16/2026 06/17/2023, 03/17, 08/19/2018 Hepatitis B Completed 01/05/1996, 07/16, 1995 GARDASIL-HPV IMMUNIZATION SERIES Completed 2011, 02/27/2011, 12/24/2010 MENINGOCOCCAL (MENACTRA/MENVEO) Completed 01/08/2013, 03/03/2007 Gonorrhea / Chlamydia Screen Discontinued 06/17/2023, 03/30/2021, 08/19/2018, Additional history exists Pneumococcal Vaccine: Pediatrics (0 to 5 Years) and At-Risk Patients (6 to 64 Years) Aged Out No longer eligible based on patient's age to complete this topic documented as of this encounter Medical Devices Not on filedocumented as of this encounter Care Teams Commercial Ocean Clammer Relationship Specialty Start Date End Date Margo Avila DO [address] [facility] [address] [place] [address] PCP - General Pediatrics 04/04/15 documented as of this encounter
--- OUTSIDE RECORDS SUMMARY | 2024-01-16 04:24 | External Medical Summary ---
Author Name Unknown Address Unknown Organization [facility] [address] [place] [address] Laboratory Report Ordering Provider Test Date Status MELISSA LAM 11/03/2023 10:08:45 Final Observation Date Value Abnormality Reference (Units ) Status Ferritin 11/03/2023 10:08:45 6 Below low normal 13- 150 (ng/mL) Final Performing Location [facility] - [address] [place] [address]
--- OUTSIDE RECORDS SUMMARY | 2024-01-16 04:24 | External Medical Summary ---
Author Name Unknown Address Unknown Organization K0G[facility] - [address] [place] [address] Laboratory Report Ordering Provider Test Date Status CAROLEMELISSA 11/03/2023 10:08:45 Final Observation Date Value Abnormality Reference (Units ) Status Glucose [Moles/volume] in Serum or Plasma --1 hour post 50 g glucose PO 11/03/2023 10:08:45 155 Above high normal 70-129 (mg/dL) Final Performing Location [facility] - [address] [place] [address]
--- OUTSIDE RECORDS SUMMARY | 2024-01-16 04:24 | External Medical Summary | Summary of Care ---
Author Name Unknown Organization [facility] Address [address] [facility] [place] [address] Phone [phone] Care Team Providers Care Protein Purification Scientist Name Role Phone Austin Margo Shari KELLEY Primary Care Provider [phone] Reason for Visit * Reason Comments Return Visit Encounter Details Date Type Department Care Team (Late st Contact Info) Description 09/29/2023 3:30 PM EDT Office Visit Gynecology/Obstetric s [facility] [address] [place] [address] Twila Mclean PA-C [address] [place] [address] Supervision of normal first , antepartum* Allergies No known active allergiesdocumented as of [...] money to get more. Never true 09/12/2023 [place] Depression Scale Answer Date Recorded [place] Depression Scale Total 5 06/17/2023 The thought [...] Sign Reading Time Taken Comments Blood Pressure 96/54 09/29/2023 3:33 PM EDT Pulse - - Temperature - - Respiratory Rate - - Oxygen Saturation - - Inhaled Oxygen Concentration - - Weight 59 kg (130 lb) 09/29/2023 3:33 PM EDT Height - - Body Mass Index 23.78 09/12/2023 4:21 PM EDT documented in this encounter Progress Notes * Twila Mclean PA-C - 09/29/2023 3:48 PM EDT 23w3d Called in this AM with concerns for decreased FM. Pt reports typically feels baby with larger movements up near top of fundus. Admits did not feel much movement yesterday. Called d/t this concerns, since speaking with nurse on phone has felt baby move. Reports feels low like fluttering. Pt does have anterior placenta. +FHT with doppler 140's. Discussed movements with patient, she is feeling movement. Denies LOF, contractions. VB. Advised okay to call with any concerns. RTC for CARMEN as previously scheduled. Twila Mclean PA-C * Daniella Berg MED ASSIST - 09/29/2023 3:33 PM EDT 23w3d Patient present for FHT, had decreased movements from yesterday afternoon. Feeling a "bubbly"/"fluttering" movements documented in this encounter Plan of Treatment Upcoming Encounters Date Type Department Care Team (Late st Contact Info) Description 10/13/2023 8:00 AM EDT [facility] [address] [place] [address] Awilda Retana CRNP [address] [place] [address] Health Maintenance Due Date Last Done Comments [...] Supervision of normal first , antepartum- Primary documented in this encounter Care Teams Protein Purification Scientist Relationship Specialty Start Date End Date Margo Avila DO [address] [place] [address] PCP - General Pediatrics 04/04/15 documented as of this encounter
--- OUTSIDE RECORDS SUMMARY | 2024-01-16 04:24 | External Medical Summary | Summary of Care ---
Author Name Unknown Organization [facility] Address [address] [place] [address] Phone [phone] Care Team Providers Care Telegraphic Service Dispatcher Name Role Phone Margo Avila Shari KELLEY Primary Care Provider [phone] Reason for Visit * Reason Onset Date Comments MyCode Consent 09/12/2023 Encounter Details Date Type Department Care Team (Late st Contact Info) Description 09/12/2023 Orders Only Outcomes Research Department [address] [place], [place] [id number] Xochitl Morillo CHRA MyCode Research Other*[id number]* Allergies No known active allergiesdocumented as of this encounter (statuses as of 09/12/2023) Medications Medication Sig Dispensed Refills Start Date [...] as of this encounter (statuses as of 09/12/2023) Active Problems Problem Noted Date Diagnosed Date Supervision of normal first , antepartu 06/17/2023 Candidiasis 03/30/2021 Anxiety disorder 03/30/2021 Hematuria 01/29/2013 Overview: ICD-10 update of inactive term Estimated Date of Delivery Comme nts Yes 01/23/2024 Based on last me nstrual period of 04/18/2023 documented as of this encounter (statuses as of 09/12/2023) Immunizations Name Administration Dates Next Due COVID-19 [...] money to get more. Never true 09/12/2023 [place] Depression Scale Answer Date Recorded [place] Depression Scale Total 5 06/17/2023 The thought [...] as of this encounter Progress Notes * Xochitl Morillo CHRA - 09/12/2023 8:44 AM EDT MyCode Consent Documentation Julieta Cordon provided consent/authorization to participate in the MyCode Project. documented in this encounter Plan of Treatment Upcoming Encounters Date Type Department Care Team (Late st Contact Info) Description 09/12/2023 4:30 PM EDT Office Visit Gynecology/Obstetrics [facility] [address] [place] [address] Twila Mclean PA-C [address] [place] [address] Scheduled Orders Name Type Priority Associated Diagnoses Orde r Schedule MYCODE INITIAL ADULT Lab Routine MyCode Research Other*[id number] Expected: 09/12/2023 (Approximate), Expires: 10/01/2024 Health Maintenance Due Date Last Done Comments [...] as of this encounter Visit Diagnoses Diagnosis MyCode Research Other*[id number]- Primary documented in this encounter Care Teams Telegraphic Service Dispatcher Relationship Specialty Start Date End Date Margo Avila DO [address] [facility] [address] [place] [address] PCP - General Pediatrics 04/04/15 documented as of this encounter
--- OUTSIDE RECORDS SUMMARY | 2024-01-16 04:24 | External Medical Summary | Summary of Care ---
Author Name Unknown Organization [facility] Address [address] [facility] [place] [address] Phone [phone] Care Team Providers Care Front Desk Officer Name Role Phone Austin Margo Shari KELLEY Primary Care Provider [phone] Reason for Visit * Reason Comments Return Visit Encounter Details Date Type Department Care Team (Late st Contact Info) Description 09/12/2023 4:30 PM EDT Office Visit Gynecology/Obstetric s [facility] [address] [place] [address] Twila Mclean PA-C [address] [place] [address] Supervision of normal first , antepartum* Allergies [...] money to get more. Never true 09/12/2023 [place] Depression Scale Answer Date Recorded [place] Depression Scale Total 5 06/17/2023 The thought [...] Sign Reading Time Taken Comments Blood Pressure 98/52 09/12/2023 4:21 PM EDT Pulse - - Temperature - - Respiratory Rate - - Oxygen Saturation - - Inhaled Oxygen Concentration - - Weight 56.3 kg (124 lb 3.2 oz) 09/12/2023 4:21 P M EDT Height 157.5 cm (5' 2") 09/12/2023 4:21 PM EDT Body Mass Index 22.72 09/12/2023 4:21 PM EDT documented in this encounter Progress Notes * Twila Mclean PA-C - 09/12/2023 4:24 PM EDT 21w0d Denies concerns. Anatomy today. Reviewed report with her. MSAFP negative. Denies LOF, VB, contractions. + quickening. RTC in 4 weeks Twila Mclean PA-C documented in this encounter Nursing Notes * Reyna Shah RN - 09/12/2023 4:23 PM EDT Patient here for CARMEN 21w0d No concerns Had anatomy today Reyna Shah RN documented in this encounter Plan of Treatment Health Maintenance Due Date Last Done Comments [...] Primary documented in this encounter Care Teams Front Desk Officer Relationship Specialty Start Date End Date Margo Avila DO [address] [facility] [address] [facility] [place] [address] PCP - General Pediatrics 04/04/15 documented as of this encounter
--- OUTSIDE RECORDS SUMMARY | 2024-01-16 04:24 | External Medical Summary ---
Author Name Unknown Address Unknown Organization K01:[facility] [address] [place] [address] Laboratory Report Ordering Provider Test Date Status MELISSA LAM 11/03/2023 10:08:45 Final Observation Date Value Abnormality Reference (Units ) Status Folic Acid 11/03/2023 10:08:45 >20.0 >4.5 (ng/ mL) Final Performing Location [facility] - [address] [place] [address]
--- OUTSIDE RECORDS SUMMARY | 2024-01-16 04:24 | External Medical Summary | Summary of Care ---
Author Name Unknown Organization [facility] Address [address] [facility] [address] Phone [phone] Care Team Providers Care Pastoral Assistant Name Role Phone Austin Margo Shari KELLEY Primary Care Provider [phone] Reason for Visit * Reason Comments Outpatient Testing Encounter Details Date Type Department Care Team (Late st Contact Info) Description 08/21/2023 12:20 PM EDT Laboratory Laboratory, [facility] [address] [facility] [place] [phone] [facility] [address] [facility] [place] [address] Supervision of normal first , antepartum Allergies No known active allergiesdocumented as of this encounter (statuses as of 08/21/2023) Medications Medication Sig Dispensed Refills Start Date [...] as of this encounter (statuses as of 08/21/2023) Active Problems Problem Noted Date Diagnosed Date Supervision of normal first , antepartu m 06/17/2023 Candidiasis 03/30/2021 Anxiety disorder 03/30/2021 Hematuria 01/29/2013 Overview: ICD-10 update of inactive term Estimated Date of Delivery Comme nts Yes 01/23/2024 Based on last me nstrual period of 04/18/2023 documented as of this encounter (statuses as of 08/21/2023) Immunizations Name Administration Dates Next Due COVID-19 [...] money to get more. Never true 06/16/2023 [place] Depression Scale Answer Date Recorded [place] Depression Scale Total 5 06/17/2023 The thought [...] Description 09/12/2023 8:15 AM EDT Imaging Radiology [facility] [address] [facility] [place] [address] 09/12/2023 10:45 AM EDT Office Visit Gynecology/Obstetrics [facility] [address] [facility] [place] [address] Awilda Retana CRNP [address] [facility] [place] [address] Pending Results Name Type Priority Associated Diagnoses Date /Time MATERNAL SERUM AFP Lab Routine Supervision of normal first , antepartum 08/21/2023 12:22 PM EDT Health Maintenance Due Date Last Done [...] antepartum documented in this encounter Care Teams Pastoral Assistant Relationship Specialty Start Date End Date Margo Avila DO [address] [facility] [address] [place] [address] PCP - General Pediatrics 04/04/15 documented as of this encounter
--- OUTSIDE RECORDS SUMMARY | 2024-01-16 04:24 | External Medical Summary | Summary of Care ---
Author Name Unknown Organization [facility] Address [address] [facility] [address] Phone [phone] Care Team Providers Care Appraiser Art Name Role Phone Margo Avila Shari [place] Primary Care Provider [phone] Reason for Visit * Reason Comments Return Visit Encounter Details Date Type Department Care Team (Late st Contact Info) Description 08/12/2023 8:00 AM EDT Office Visit Gynecology/Obstetric s [facility] [address] [place] [address] Awilda Retana CRNP [address] [place] [address] Supervision of normal first , antepartum*; Other specified related conditions, second trimester Allergies No known active allergiesdocumented as of this encounter (statuses as of 08/12/2023) Medications Medication Sig Dispensed Refills Start Date [...] as of this encounter (statuses as of 08/12/2023) Active Problems Problem Noted Date Diagnosed Date Supervision of normal first , antepartu m 06/17/2023 Candidiasis 03/30/2021 Anxiety disorder 03/30/2021 Hematuria 01/29/2013 Overview: ICD-10 update of inactive term Estimated Date of Delivery Comme nts Yes 01/23/2024 Based on last me nstrual period of 04/18/2023 documented as of this encounter (statuses as of 08/12/2023) Immunizations Name Administration Dates Next Due COVID-19 [...] Vac cine, Unspecified Formulation 01/08/2013 TDAP (age 11 and older)(Adacel) 11/05/2006 Varicella Vaccine (Chicken Pox) 03/03/2007,07/08 documented [...] money to get more. Never true 06/16/2023 [place] Depression Scale Answer Date Recorded [place] Depression Scale Total 5 06/17/2023 The thought [...] Sign Reading Time Taken Comments Blood Pressure 104/62 08/12/2023 7:51 AM EDT Pulse - - Temperature - - Respiratory Rate - - Oxygen Saturation - - Inhaled Oxygen Concentration - - Weight 55.3 kg (122 lb) 08/12/2023 7:51 AM EDT Height - - Body Mass Index 22.31 07/15/2023 8:46 AM EDT documented in this encounter Progress Notes * Awilda Retana CRNP - 08/12/2023 8:11 AM EDT 16w4d Occasional n/v, but not daily. Has not felt FM yet. No bleeding. Discussed MSAFP, wants to check with insurance, but likely is interested. Order placed, can go to lab any time to get drawn. Anatomy u/s with next visit. DARLINE Garcia documented in this encounter Nursing Notes * Radha Duarte LPN - 08/12/2023 7:59 AM EDT 16w4d Denies vaginal bleeding/rom Absent movement Considering MSAFP- discuss more documented in this encounter Plan of Treatment Upcoming Encounters Date Type Department Care Team (Late st Contact Info) Description 09/12/2023 8:15 AM EDT Imaging Radiology [facility] [address] [place] [address] 09/12/2023 10:45 AM EDT Office Visit Gynecology/Obstetrics [facility] [address] [place] [address] Awilda Retana CRNP [address] [place] [address] Scheduled Orders Name Type Priority Associated Diagnoses Orde r Schedule US PREG SINGLE/1ST GEST, 14 WEEKS OR LATER Medical Imaging Routine Supervision of normal first , antepartum Other specified related conditions, second trimester Expected: 09/12/2023 (Approximate), Expires: 09/11/2024 MATERNAL SERUM AFP Lab Routine Supervision of normal first , antepartum Expected: 08/19/2023 (Approximate), Expires: 08/11/2024 Health Maintenance Due Date Last Done Comments [...] Supervision of normal first , antepartum- Primary Other specified related conditions, second trimester documented in this encounter Care Teams Appraiser Art Relationship Specialty Start Date End Date Margo Avila DO [address] [facility] [address] [place] [address] PCP - General Pediatrics 04/04/15 documented as of this encounter
--- OUTSIDE RECORDS SUMMARY | 2024-01-16 04:24 | External Medical Summary | Summary of Care ---
Author Name Unknown Organization [facility] Address [address] [place] [address] Phone [phone] Care Team Providers Care Cost Estimating Manager Name Role Phone Margo Avila Shari KELLEY Primary Care Provider [phone] Reason for Visit * Reason Onset Date Comments MyCode - Took Form To Consider 09/12/2023 Encounter Details Date Type Department Care Team (Late st Contact Info) Description 09/12/2023 Orders Only Outcomes Research Department [address] [place] [address] Xochitl Morillo CHRA MyCode Nonconsent Documentation Allergies No known active allergiesdocumented as of [...] the money to buy more. Never true 09/11/19 24 Within the past 12 months, t he food you bought just didn't last and you didn't have money to get more. Never true 09/11/2023 Arnold Depression Scale Answer Date Recorded Arnold Depression Scale Total 5 06/17/2023 The thought of harming myself has occurred to me . Never 06/17/2023 Childcare Answer Date Recorded Do you feel overwhelmed with taking care of a child, family member or friend? No 09/11/2023 Does your family need help f inding childcare? (Household - for ages 0-17 years) Not on file 09/11/2023 Clothing Answer Date Recorded Have you been unable to get clothing when it was really needed? No 09/11/2023 Is your family able to get c lothes or diapers when needed? (Household - for ages 0-17 years) Not on file 09/11/2023 Personal Safety Answer Date Recorded Do you feel unsafe or have concerns for your saf ety? No 09/11/2023 Do you have concerns for you r family's safety? (Household - for ages 0-17 years) Not on file 09/11/2023 Utilities Answer Date Recorded Do you have trouble paying y our heating, water, or electric bill? No 09/11/2023 Is your family able to pay t he heat, water, or electric bill? (Household - for ages 0-17 years) Not on file 09/11/2023 Does your family have access to good internet? (Household - for ages 0-17 years) Not on file 09/11/2023 Employment Status Answer Date Recorded Are you unemployed or without regular income? No 09/11/2023 Does the household have a re gular source of income? (Household - for ages 0-17 years) Not on file 09/11/2023 Social Connections Answer Date Recorded How often do you feel lonely or isolated from th ose around you? Rarely 09/11/2023 Financial Resource Strain Answer Date R ecorded Do you have any trouble payi ng for your medications, or do you think you might in the future? No 09/11/2023 Does your family have troubl e paying for medicine? (Household - for ages 0-17 years) Not on file 09/11/2023 Transportation Needs Answer Date Record ed READ ONLY Do you have troubl e getting a ride to medical visits or work? Never True 09/11/2023 Does your family have a hard time getting a ride to doctors visits? (Household - for ages 0-17 years) Not on file 09/11/2023 Has lack of transportation k ept you from medical appointments, meetings, work, or from getting things needed for daily living? Check all that apply. No 09/11/2023 Do you (or your family) have trouble finding or paying for a ride (transportation)? (Household - for ages 0-17 years) Not on file 09/11/2023 Housing Stability Answer Date Recorded Do you currently live in a s helter or have no steady place to sleep at night? No 09/11/2023 READ ONLY Do you think you a re at risk of becoming homeless? No 09/11/2023 Does your family worry about paying for your home or becoming homeless? (Household - for ages 0-17 years) Not on file 0 09/11/2023 Are you homeless or worried that you might be in the future? No 09/11/2023 Are you (or your family) macho eless or worried that you might be in the future? (Household - for ages 0-17 years) Not on file Food Insecurity Answer Date Recorded Do you need food for this week? No 09/11/2023 Are you able to get enough f ood for your family? (Household - for ages 0-17 years) Not on file 09/11/2023 Does your family need food t his week? (Household - for ages 0-17 years) Not on file 09/11/2023 Do you always have enough fo od for your family? (Household - for ages 0-17 years) Not on file 09/11/2023 Estimated Date of Delivery Comme nts Yes [...] Notes * Xochitl Morillo CHRA - 09/12/2023 7:59 AM EDT MyCode Nonconsent Documentation Julieta Cordon was approached in the clinic regarding participation in the MyCode Project and did not consent. documented in this encounter Plan of Treatment Upcoming Encounters Date Type Department Care Team (Late st Contact Info) Description 09/12/2023 4:30 PM EDT Office Visit Gynecology/Obstetrics Nettlesparveen Barragan [address] [place] [address] Twila Mclean PA-C [address] [place] [address] Health Maintenance Due Date Last Done Comments [...] filedocumented as of this encounter Care Teams Cost Estimating Manager Relationship Specialty Start Date End Date Margo Avila DO [address] [facility] [address] [place] [address] PCP - General Pediatrics 04/04/15 documented as of this encounter
--- OUTSIDE RECORDS SUMMARY | 2024-01-16 04:24 | External Medical Summary ---
Author Name Unknown Address Unknown Organization [id number]:[facility] [place] [address] [place] [address] Laboratory Report Ordering Provider Test Date Status CELI LAMAIL 11/03/2023 10:08:45 Final Observation Date Value Abnormality Reference (Units ) Status WBC, Total 11/03/2023 10:08:45 10.43 4.00-10.8 0 (K/uL) Final RBC 11/03/2023 10:08:45 3.61 3.85-5.15 (M/uL) Final Hemoglobin 11/03/2023 10:08:45 10.6 Below low normal 12 .0-15.3 (g/dL) Final Anemia reflex testing trigge rs on a HGB < 12.0 for Females and HGB < 13.0 for Males in accordance with the WHO Anemia Guidelines
Anemia reflex testing triggers on a HGB < 12.0 for Females and HGB < 13.0 for Males in accordance with the WHO Anemia Guidelines HCT 11/03/2023 10:08:45 32.7 Below low normal 36. 0-45.2 (%) Final MCV 11/03/2023 10:08:45 90.6 81.5-97.5 (fL) Final MCH 11/03/2023 10:08:45 29.4 27.0-34.0 (pg) Final MCHC 11/03/2023 10:08:45 32.4 32.0-36.0 (g/dL) Final RDW 11/03/2023 10:08:45 12.4 11.5-15.5 (%) Final Platelets 11/03/2023 10:08:45 129 Below low normal 140 -400 (K/uL) Final MPV 11/03/2023 10:08:45 12.4 6.6-11.1 ( fL) Final Nucleated erythrocytes/100 leukocytes [Ratio] in Blood by Automated count 11/03/2023 10:08:45 0 <=0 (/100 WBCs) Final Performing Location [facility] - [address] [facility] [address]
--- OUTSIDE RECORDS SUMMARY | 2024-01-16 04:24 | External Medical Summary ---
Author Name Unknown Address Unknown Organization [id number]:[facility] [place] - [address] [facility] [place] [address] Laboratory Report Ordering Provider Test Date Status MELISSA LAM 11/03/2023 10:08:45 Final Observation Date Value Abnormality Reference (Units ) Status SYNC LEUKOCYTES IN BLOOD BY AUTOMATED COUNT 11/03/2023 10:08:45 10.43 4.00-10.80 (K/uL) Final Segs 11/03/2023 10:08:45 71.9 40.0-75.0 (%) Final Lymphs % 11/03/2023 10:08:45 16.4 Below low normal 18.0-42.0 (%) Final Monos 11/03/2023 10:08:45 7.7 1.0-11.0 (%) Final Eosinophils 11/03/2023 10:08:45 1.9 0.0-6.0 (%) Final Basos 11/03/2023 10:08:45 0.3 0.0-2.0 (%) Final Immature Granulocyte, Percent 11/03/2023 10:08:45 1.8 0.0-2.0 (%) Final Absolute Segs 11/03/2023 10:08:45 7.50 1.80-7.70 (K/uL) Final Lymphs, absolute 11/03/2023 10:08:45 1.71 1.00-4.80 (K/ul) Final Monos, Abs 11/03/2023 10:08:45 0.80 0.00-1.10 (K/uL) Final Eos, Abs 11/03/2023 10:08:45 0.20 0.00-0.70 (K/uL) Final Basos, Abs 11/03/2023 10:08:45 0.03 0.00-0.20 (K/uL) Final Immature Granulocytes, Number 11/03/2023 10:08:45 0.19 0.00-0.20 (K/uL) Final Performing Location [facility] [place] - [address] [facility] [address]
--- OUTSIDE RECORDS SUMMARY | 2024-01-16 04:24 | External Medical Summary ---
Author Name Unknown Address Unknown Organization [id number]:[facility] [place] - [address] [facility] [address] Laboratory Report Ordering Provider Test Date Status MELISSA LAM 11/03/2023 10:08:45 Final Observation Date Value Abnormality Reference (Units ) Status Treponema pallidum Ab [Presence] in Serum by Immunoassay 11/03/2023 10:08:45 Nonreactive Nonreactive Final No serologic evidence of syp hilis. No additional testing clinicially indicated at this time. Consider repeat testing in 2-4 weeks if acute or primary syphilis is suspected. Performing Location [facility] - [address] [place] [address]
--- OUTSIDE RECORDS SUMMARY | 2024-01-16 04:24 | External Medical Summary ---
Author Name Unknown Address Unknown Organization [id number]:[facility] [place] - [address] [place] [address] Laboratory Report Ordering Provider Test Date Status MELISSA LAM 11/03/2023 10:08:45 Final Observation Date Value Abnormality Reference (Units ) Status Creatinine 11/03/2023 10:08:45 0.5 0.5-1.0 (mg/dL) Final Glomerular filtration rate/1.73 sq M.predicted [Volume Rate/Area] in Serum, Plasma or Blood by Creatinine-based formula (CKD-EPI) 11/03/2023 10:08:45 >90 >=60 (mL/min) Final eGFR is calculated based on the CKD-EPI 2020 equation. Performing Location [facility] [place] - [address] [place] [address]
--- OUTSIDE RECORDS SUMMARY | 2024-01-16 04:24 | External Medical Summary | Summary of Care ---
Author Name Unknown Organization [facility] Address [address] [facility] [place] [address] Phone [phone] Care Team Providers Care Respiratory Assistant Name Role Phone Margo Avila Shari KELLEY Primary Care Provider [phone] Reason for Visit * Reason Comments Return Visit Encounter Details Date Type Department Care Team (Late st Contact Info) Description 10/13/2023 8:00 AM EDT Office Visit Gynecology/Obstetric s Josefa Orrs [address] [place] [address] Awilda Retana CRNP [address] [place] [address] Supervision of normal first , antepartum* Allergies No known active allergiesdocumented as of this encounter (statuses as of 10/13/2023) Medications Medication Sig Dispensed Refills Start Date [...] as of this encounter (statuses as of 10/13/2023) Active Problems Problem Noted Date Diagnosed Date Supervision of normal first , antepartu m 06/17/2023 Candidiasis 03/30/2021 Anxiety disorder 03/30/2021 Hematuria 01/29/2013 Overview: ICD-10 update of inactive term Estimated Date of Delivery Comme nts Yes 01/23/2024 Based on last me nstrual period of 04/18/2023 documented as of this encounter (statuses as of 10/13/2023) Immunizations Name Administration Dates Next Due COVID-19 mRNA, LNP-s, No Pre serve, 2-Dose Series ([employer]) 07/28/2020,07/07/2020 DTaP Dipth/Tet/Acell Pertussis (Infanrix), Peds 07/21/2000,01/03/1997,01/05/1996,11/03,1995 [...] money to get more. Never true 09/12/2023 [place] Depression Scale Answer Date Recorded [place] Depression Scale Total 5 06/17/2023 The thought [...] Sign Reading Time Taken Comments Blood Pressure 98/58 10/13/2023 7:53 AM EDT Pulse - - Temperature - - Respiratory Rate - - Oxygen Saturation - - Inhaled Oxygen Concentration - - Weight 59.4 kg (131 lb) 10/13/2023 7:53 AM EDT Height - - Body Mass Index 23.96 09/12/2023 4:21 PM EDT documented in this encounter Progress Notes * Awilda Retana CRNP - 10/13/2023 8:02 AM EDT 25w5d No concerns. Baby is active. Denies contractions, bleeding, LOF. Glucola with next visit. DARLINE Garcia * Radha Duarte LPN - 10/13/2023 7:52 AM EDT 25w3d Denies vaginal bleeding/rom + movement No new concerns documented in this encounter Plan of Treatment Scheduled Orders Name Type Priority Associated Diagnoses Orde r Schedule 50-G GESTATIONAL GLUCOSE, 1 HOUR Lab Routine Supervision of normal first , antepartum Expected: 11/13/2023 (Approximate), Expires: 10/12/2024 SYPHILIS ANTIBODY SCREEN WITH REFLEX TO RPR Lab Routine Supervision of normal first , antepartum Expected: 11/13/2023 (Approximate), Expires: 10/12/2024 CBC WITH WBC DIFFERENTIAL AND ANEMIA REFLEX WORKUP Lab Routine Supervision of normal first , antepartum Expected: 11/13/2023 (Approximate), Expires: 10/12/2024 Health Maintenance Due Date Last Done Comments Depression Screening 04/01/2015 04/01/2014 DTaP,Tdap,and Td Vaccines (7 - Td or Tdap) 11/05/2016 11/05/2006, 07/21/2000, 01/03/1997, Additional history exists COVID-19 Vaccine ( season) 2022 07/28/2020, 07/07/2020 Influenza Vaccine (FLU shot) (#1) 2023 01/08/2013, 01/08/2013, 12/24/2010, Additional history exists Pap Smear 06/16/2026 06/17/2023, 03/17, 08/19/2018 Hepatitis B Vaccine Completed 01/05/1996, 1995, 1995 HPV (Gardasil) Vaccine Completed , 02/27/2011, 12/24/2010 MENINGOCOCCAL (MENACTRA/MENVEO) Completed 01/08/2013, 03/03/2007 [...] Primary documented in this encounter Care Teams Respiratory Assistant Relationship Specialty Start Date End Date Margo Avila DO [address] [facility] [address] [place] [address] PCP - General Pediatrics 04/04/15 documented as of this encounter
[2024-01-16] MEDS ORDERED: OXYTOCIN 30 UNITS/NSS 30 UNITS/500 ML BAG IV PRN ×2 (04:48→13:58)
[2024-01-16] MEDS ORDERED: LIDOCAINE 1% LOCAL 20 ML VIAL INFIL PRN (04:48)
[2024-01-16] MEDS: LACTATED RINGER'S 1,000 ML IV PRN (05:15)
[2024-01-16 05:32] LABS: Hematocrit (blood only) 41.8 % (37.0-47.0); Hemoglobin 14.5 g/dl (12.0-16.0); Mean Corpuscular Hemoglobin 29.7 pg (25.0-34.0); Mean Corpuscular Hgb Conc 34.7 g/dL (32.0-36.0); Mean Corpuscular Volume 85.7 fL (80.0-100.0); Mean Platelet Volume 12.8 fL (9.4-12.4); Platelet Count 103 K/uL (130-400); RDW Coefficient of Variation 14.8 % (11.5-14.5); RDW Standard Deviation 46.5 fL (36.4-46.3); Red Blood Count 4.88 M/uL (4.20-5.40); White Blood Count 14.34 K/ul (4.8-10.8)
[2024-01-16] MEDS: BUPIVACAINE 0.25% PF 30 ML VIAL ONE (06:10)
[2024-01-16] MEDS: LIDOCAINE 2%/EPINEPHRINE 1:200,000 20 ML PF ONE (06:10)
[2024-01-16] MEDS: fentANYL 2 MCG/ML BUPIVacaine 0.125%-NSS 100ML BAG ONE (06:11)
[2024-01-16] MEDS: fentaNYL citrate PF 100 MCG/2 ML VIAL ONE (06:17)
[2024-01-16] MEDS: ePHEDrine sulfate 50 MG/ML AMP ONE (06:17)
[2024-01-16] MEDS: SODIUM CHLORIDE 0.9% PF INJ 10 ML VIAL ONE (06:17)
[2024-01-16] MEDS ORDERED: ONDANSETRON INJ 2 MG/ML 2 ML VIAL IV PRN (06:18)
[2024-01-16] MEDS ORDERED: LIDOCAINE 2% MPF LOCAL 5 ML VIAL EPI PRN (06:18)
[2024-01-16] MEDS ORDERED: NALOXONE HCL 0.4 MG/1 ML VIAL/CARP IV PRN (06:18)
[2024-01-16] MEDS ORDERED: ROPIVACAINE 0.5% PF 5 MG/ML 20 ML VIAL EPI PRN (06:18)
[2024-01-16] MEDS ORDERED: ePHEDrine sulfate 50 MG/ML AMP IV PRN (06:18)
[2024-01-16] MEDS ORDERED: NALOXONE HCL 1 MG in SODIUM CHLORIDE 0.9% 1,000 ML IV PRN (06:18)
[2024-01-16] MEDS ORDERED: SODIUM CHLORIDE 0.9% PF INJ 10 ML VIAL EPI PRN (06:18)
[2024-01-16] MEDS ORDERED: diphenhydrAMINE 50 MG/ML VIAL IV PRN (06:18)
[2024-01-16] MEDS ORDERED: NALBUPHINE HCL INJ 10 MG/ML AMP IV PRN (06:18)
[2024-01-16] MEDS ORDERED: fentANYL 2 MCG/ML BUPIVacaine 0.125%-NSS 100ML BAG EPI PRN (06:18)
[2024-01-16] MEDS ORDERED: BUPIVACAINE 0.25% PF 30 ML VIAL EPI PRN (06:18)
[2024-01-16] MEDS ORDERED: fentaNYL citrate PF 100 MCG/2 ML VIAL EPI PRN (06:18)
--- NOTE | 2024-01-16 06:18 | Anesthesiology Consultation ---
Date of Service January 16, 2024 Assessment & Plan Chart Review Chart Review: Patient NOT seen in Pre Admission Testing and Acceptable Risk for Labor Epidural Consults Requested none ASA ASA2 Proposed Anesthesia Anesthesia Type: Labor Epidural Risk / Benefits Reviewed With: PT / POA / Parent / Guardian, Accepts Plan and Informed Consent Obtained History Height/Weight Height: 5 ft 2 in Weight: 65.771 kg Allergies Allergy/AdvReac Type Severity Reaction Status Date / Time No Known Allergies Allergy Unverified 01/16/24 04:08 Medications Home Medications Medication Instructions Recorded Confirmed Last Taken B-12 Compliance 1,000 mcg PO DAILY 01/16/24 01/16/24 01/15/24 21:00 PO DAILY 01/16/24 01/15/24 21:00 blood sugar diagnostic ([facility] 01/16/24 01/16/24 Unknown Verio test strips) blood-glucose meter ([facility] 01/16/24 01/16/24 Unknown Verio Flex Meter) choline 550 mg PO DAILY 01/16/24 01/16/24 01/15/24 21:00 lancets 30 gauge ([facility] Delica 01/16/24 01/16/24 Unknown Plus Lancet) Active Medications Generic Name Dose Route Start Last Admin Trade Name Freq PRN Reason Stop Dose Admin Lactated Ringer's 1,000 mls @ 50 mls/hr 01/16/24 05:24 01/16/24 05:45 Lr IV 01/17/24 05:29 50 mls/hr .Q20H PRN Infusion L&D Protocol Exercise / Class Metabolic Activity II 4-5 Yardwork/Stairs/Walk up hill Past Family History Family History (Updated 01/16/24 @ 04:08 by Gavi Olivo RN) Grandfather (Maternal) Colon cancer Past Surgical History Surgical History (Updated 01/16/24 @ 04:07 by Gavi Olivo RN) [place] teeth extracted Past Anesthesia History No Hx of Anesthesia Complications and No Family Hx of Anesthesia Complications History of PONV No Hx of PONV and No Hx of Motion Sickness Social History Smoking Status: Never smoker Hx Alcohol Use: No Hx Substance Use: No Physical Exam Vital Signs Last Vital Signs Temp 36.5 C 01/16/24 04:18 Pulse 111 H 01/16/24 06:15 Resp 18 11/01/24 04:18 BP 124/66 01/16/24 06:15 Pulse Ox 98 01/16/24 06:15 ENMT Mouth: no dentition abnormality Thyromental Distance: > or= 3.5 Finger Breadths Mallampati Class: II Neck normal visual inspection Respiratory normal respiratory effort Auscultation: lungs clear to auscultation bilaterally Cardiovascular Rate/Rhythm: regular rate and regular rhythm Psychiatric Orientation: alert Testing Laboratory Results 01/16/24 05:10
[2024-01-16] MEDS: LIDOCAINE 2%/EPINEPHRINE 1:200,000 20 ML PF EPI STA (07:01)
[2024-01-16] MEDS: BUPIVACAINE 0.25% PF 30 ML VIAL EPI STA (07:01)
[2024-01-16] MEDS: fentaNYL citrate PF 100 MCG/2 ML VIAL EPI STA (07:01)
[2024-01-16] MEDS: SODIUM CHLORIDE 0.9% PF INJ 10 ML VIAL EPI STA (07:01)
--- NOTE | 2024-01-16 08:41 | Obstetrical Progress Note ---
Date of Service January 16, 2024 Assessment & Plan Admission and Anticipated Discharge Date Admission Date: January 16, 2024 Subjective Patient is a 28-year-old G1, P0 at 39 weeks of gestation who was scheduled for induction of labor at term for GDM 1, diet-controlled, suspected LGA, last ultrasound was 2 weeks ago when EFW was 98 percentile, 8 pound 8 ounce. She saw MFM done and recommended to induce at 39 weeks. Patient understands the increased risk of shoulder dystocia with GDM and LGA. Shoulder dystocia may not be predicted until delivery of the head, after which shoulder may get stuck behind the pubic bone and difficulty delivery may cause stretching in the nerve plexus of arms, clavicle fracture, asphyxia, even . She was informed about that and she wanted to try. she presented with SROM at 1 AM, on the admission her cervix was 4 cm and was rechecked by her nurse at 7 AM and was 5 cm, 90%, -1. She received epidural and she is comfortable now. I checked her and she is now 9 cm, 90%, 0 to +1 station with contractions, does not feel any pain or pressure. heart rate category 1, GBS negative, Continue to monitor closely, start pushing when she is fully and feels pressure. All questions were answered. Results & Data Vital Signs (Past 12 Hours) Vital Signs Temp Pulse Resp BP Pulse Ox 01/16/24 08:35 114 H 97 01/16/24 08:34 118 H 120/65 01/16/24 08:30 105 H 97 01/16/24 08:25 109 H 97 01/16/24 08:20 104 H 97 01/16/24 08:18 97 H 118/64 01/16/24 08:15 94 H 96 01/16/24 08:10 86 96 01/16/24 08:05 85 96 01/16/24 08:04 99 H 115/65 01/16/24 08:00 91 H 96 01/16/24 07:55 97 H 97 01/16/24 07:50 105 H 97 01/16/24 07:48 111 H 109/62 01/16/24 07:45 92 H 98 01/16/24 07:40 93 H 97 01/16/24 07:35 86 97 01/16/24 07:34 105 H 110/63 01/16/24 07:30 95 H 20 98 01/16/24 07:25 108 H 97 01/16/24 07:20 115 H 97 01/16/24 07:19 92 H 111/65 01/16/24 07:15 89 97 01/16/24 07:10 85 98 01/16/24 07:05 93 H 99 01/16/24 07:03 126 H 115/76 01/16/24 07:00 132 H 99 01/16/24 06:55 94 H 99 01/16/24 06:50 106 H 99 01/16/24 06:49 97 H 124/82 01/16/24 06:45 108 H 98 01/16/24 06:40 94 H 99 01/16/24 06:35 102 H 99 01/16/24 06:31 101 H 118/57 L 01/16/24 06:30 114 H 18 99 01/16/24 06:25 104 H 18 116/59 L 98 01/16/24 06:22 109 H 125/58 L 01/16/24 06:20 104 H 18 98 01/16/24 06:15 18 01/16/24 06:15 18 01/16/24 06:15 98 01/16/24 06:15 111 H 01/16/24 06:15 113 H 124/66 91 01/16/24 06:13 113 H 108/62 01/16/24 06:12 114 H 111/62 01/16/24 06:11 111 H 112/64 01/16/24 06:10 109 H 18 114/67 97 01/16/24 06:09 115 H 01/16/24 06:09 122/73 01/16/24 06:09 109 H 118/69 01/16/24 06:05 121 H 99 01/16/24 06:00 120 H 98 01/16/24 05:55 109 H 96 01/16/24 05:51 102 H 113/67 01/16/24 05:50 111 H 99 01/16/24 05:00 18 01/16/24 05:00 36.5 C 18 01/16/24 04:18 36.5 C 18 01/16/24 03:55 36.5 C 111 H 18 123/76
[2024-01-16 09:05] LABS: Albumin Level 3.7 gm/dl (3.4-5.0); Bilirubin,Total 0.4 mg/dl (0.2-1.0); Calcium 9.2 mg/dl (8.6-10.3); Potassium 3.8 mmol/L (3.5-5.1)
[2024-01-16 09:10] LABS: Albumin Globulin Ratio 1.4 (0.9-2); BUN Creatinine Ratio 16.1 (10-20); Creatinine Clr Calc Pharmacy 133.1 ml/min; Globulin 2.6 gm/dl (2.5-4.0); Total Protein 6.3 gm/dl (6.0-8.3)
[2024-01-16] MEDS: OXYTOCIN 30 UNITS/NSS 30 UNITS/500 ML BAG IV PRN (10:36)
--- NOTE | 2024-01-16 10:39 | Obstetrical Progress Note ---
Date of Service January 16, 2024 Assessment & Plan Admission and Anticipated Discharge Date Admission Date: January 16, 2024 Subjective Patient is reevaluated VE: 10/ 100%/ +2, no pressure nor urge to push FHR categ I [place] ctxs spaced out Plan to start Oxytocin and start pushing when she has a pattern Results & Data Vital Signs (Past 12 Hours) Vital Signs Temp Pulse Resp BP Pulse Ox 01/16/24 10:35 102 H 98 01/16/24 10:34 102 H 112/66 01/16/24 10:30 114 H 99 01/16/24 10:25 101 H 98 01/16/24 10:20 97 H 120/58 L 98 01/16/24 10:15 132 H 98 01/16/24 10:14 107 H 91 01/16/24 10:10 94 H 97 01/16/24 10:05 93 H 97 01/16/24 10:03 92 H 121/62 01/16/24 10:00 103 H 97 01/16/24 09:55 97 H 98 01/16/24 09:50 102 H 97 01/16/24 09:48 104 H 115/61 01/16/24 09:45 100 H 97 01/16/24 09:40 119 H 97 01/16/24 09:35 122 H 97 01/16/24 09:34 98 H 117/63 01/16/24 09:30 97 H 18 96 01/16/24 09:25 99 H 97 01/16/24 09:20 105 H 97 01/16/24 09:18 102 H 118/57 L 01/16/24 09:15 102 H 98 01/16/24 09:10 96 H 96 01/16/24 09:05 108 H 97 01/16/24 09:03 109 H 111/58 L 01/16/24 09:00 36.8 C 98 H 18 97 01/16/24 08:55 111 H 98 01/16/24 08:50 105 H 98 01/16/24 08:48 122 H 126/65 01/16/24 08:45 100 H 97 01/16/24 08:40 112 H 98 01/16/24 08:35 114 H 97 01/16/24 08:34 118 H 120/65 01/16/24 08:30 105 H 97 01/16/24 08:25 109 H 97 01/16/24 08:20 104 H 97 01/16/24 08:18 97 H 118/64 01/16/24 08:15 94 H 96 01/16/24 08:10 86 96 01/16/24 08:05 85 96 01/16/24 08:04 99 H 115/65 01/16/24 08:00 91 H 18 96 01/16/24 07:55 97 H 97 01/16/24 07:50 105 H 97 01/16/24 07:48 111 H 109/62 01/16/24 07:45 92 H 98 01/16/24 07:40 93 H 97 01/16/24 07:35 86 97 01/16/24 07:34 105 H 110/63 01/16/24 07:30 95 H 20 98 01/16/24 07:25 108 H 97 01/16/24 07:20 115 H 97 01/16/24 07:19 92 H 111/65 01/16/24 07:15 89 97 01/16/24 07:10 85 98 01/16/24 07:05 93 H 99 01/16/24 07:03 126 H 115/76 01/16/24 07:00 132 H 99 01/16/24 06:55 94 H 99 01/16/24 06:50 106 H 99 01/16/24 06:49 97 H 124/82 01/16/24 06:45 108 H 98 01/16/24 06:40 94 H 99 01/16/24 06:35 102 H 99 01/16/24 06:31 101 H 118/57 L 01/16/24 06:30 114 H 18 99 01/16/24 06:25 104 H 18 116/59 L 98 01/16/24 06:22 109 H 125/58 L 01/16/24 06:20 104 H 18 98 01/16/24 06:15 18 01/16/24 06:15 18 01/16/24 06:15 98 01/16/24 06:15 111 H 01/16/24 06:15 113 H 124/66 91 01/16/24 06:13 113 H 108/62 01/16/24 06:12 114 H 111/62 01/16/24 06:11 111 H 112/64 01/16/24 06:10 109 H 18 114/67 97 01/16/24 06:09 115 H 01/16/24 06:09 122/73 01/16/24 06:09 109 H 118/69 01/16/24 06:05 121 H 99 01/16/24 06:00 120 H 98 01/16/24 05:55 109 H 96 01/16/24 05:51 102 H 113/67 01/16/24 05:50 111 H 99 01/16/24 05:00 18 01/16/24 05:00 36.5 C 18 01/16/24 04:18 36.5 C 18 01/16/24 03:55 36.5 C 111 H 18 123/76
[2024-01-16] MEDS ORDERED: HYDROCORTISONE ACETATE 25 MG SUPP PR PRN (13:58)
[2024-01-16] MEDS ORDERED: oxyCODONE/ACETAMINOPHEN 5mg/325mg TAB PO PRN (13:58)
[2024-01-16] MEDS ORDERED: bisacodyL 10 MG SUPP PR PRN (13:58)
--- NOTE | 2024-01-16 14:04 | Delivery Summary ---
Vaginal Delivery Summary Date of Service January 16, 2024 Vaginal Delivery Summary Patient was found to be fully dilated and desired to push. She pushed for about 40 min and delivered the head and then shoulders with minimal traction. Due to suspected macrosomia right mediolateral episiotomy was opened just before the delivery of the head. The baby was handed off to the mother. The cord was clampedx2 and cut at 1 minute. The vagina and perineum were checked and found to have Rt LM episiotomy which was second degree laceration. Rectal exam was done and noted good sphincter tone. The gloves were changes. Perineal body muscles were grasped with Allis clamps on both sides brought to the midline and reapproximated with 2-0 Vicryl with [id number] stitches x 3, 2 support of the sphincter. The vaginal mucosa was repaired with 2/0 vicryl and skin on subcuticular fashion. The placenta was delivered spontaneously as intact and complete. The uterus was explored and found to be empty. Then there was oozing of blood on the right lower vagina wall, it was repaired with 2-0 Vicryl in a running fashion. There noted to be another first-degree laceration on the left lower vagina wall which was also repaired with 2-0 Vicryl in a running fashion. Then Mady powder was applied to the repair and excellent hemostasis achieved QBL was 313 ml. The fundus was firm. The baby was a viable female infant, Apgars 8/8, the weight is pending The mother and the baby tolerated the procedure well. No complications happened and I was present during whole procedure.
[2024-01-16] MEDS: MEASLES, MUMPS & RUBELLA VIRUS VACCINE (MMR) 0.5ML VIAL SQ ONE (14:14)
[2024-01-16] MEDS: DIPHTHER/TETAN/PERTUS Vaccine (Tdap, Adol/Adult) 0.5mL IM ONE (14:14)
--- NOTE | 2024-01-16 15:02 | Anesthesia Procedure Note ---
Date of Service January 16, 2024 Anesthesia Post Epidural Note Vital Signs Vital Signs: Temp Pulse Resp BP Pulse Ox 37.1 C 117 H 20 118/66 99 01/16/24 12:59 01/16/24 14:59 01/16/24 12:59 01/16/24 14:59 01/16/24 13:31 Notes Mental Status: alert / awake / arousable Nausea / Vomiting: adequately controlled Pain: adequately controlled Airway Patency, RR, SpO2: stable & adequate BP & HR: stable & adequate Hydration State: stable & adequate Neuraxial Anesthesia: was administered and sensory block is resolving Anesthetic Complications: no major complications apparent and Pt Satisfied with anesthetic care Epidural: Removed without complications and With tip intact
[2024-01-16] MEDS: IBUPROFEN 600 MG TAB PO PRN (18:33)
[2024-01-16] MEDS: BENZOCAINE 20% SPRY 85 APPLN/85 GM CAN EXT PRN (18:34)
[2024-01-16] MEDS: DOCUSATE SODIUM 100 MG CAP PO SCH (21:42)
[2024-01-17] MEDS: ACETAMINOPHEN 325 MG TAB PO PRN (02:15)
[2024-01-17 07:10] LABS: Hematocrit (blood only) 33.5 % (37.0-47.0); Hemoglobin 10.9 g/dl (12.0-16.0); Mean Corpuscular Hemoglobin 29.1 pg (25.0-34.0); Mean Corpuscular Hgb Conc 32.5 g/dL (32.0-36.0); Mean Corpuscular Volume 89.3 fL (80.0-100.0); Mean Platelet Volume 12.4 fL (9.4-12.4); Platelet Count 94 K/uL (130-400); RDW Coefficient of Variation 15.3 % (11.5-14.5); RDW Standard Deviation 50.6 fL (36.4-46.3); Red Blood Count 3.75 M/uL (4.20-5.40)
[2024-01-17] MEDS: PRENATAL VITAMIN 1 TAB PO SCH (07:31)
[2024-01-17] MEDS: FERROUS SULFATE 325 MG TAB PO SCH (07:31)
[2024-01-17] MEDS: POLYETHYLENE (MIRALAX) 17 GM PACK PO SCH (08:36)
--- NOTE | 2024-01-17 10:16 | Obstetrical Progress Note ---
Date of Service January 17, 2024 Assessment & Plan Admission and Anticipated Discharge Date Admission Date: January 16, 2024 OB Progress Note abdomen soft and non tender no calf tenderness ambulating well vaginal bleeding scant hgb 10.9 Results & Data Vital Signs (Past 12 Hours) Vital Signs Temp Pulse Resp BP Pulse Ox O2 Del Method 01/17/24 07:25 Room Air 01/17/24 07:20 36.7 C 105 H 16 111/72 98 Room Air 01/16/24 23:25 37.0 C 102 H 20 99/65 L 97 Room Air 01/16/24 22:59 36.5 C 96 H 16 111/75 99 Room Air
[2024-01-17] MEDS: guaiFENesin 600 MG TABCR PO PRN (12:44)
[2024-01-17] MEDS ORDERED: bisacodyL 5 MG TABEC PO SCH (20:00)
[2024-01-17 22:57] VITALS: RESP 16
[2024-01-18 06:57] LABS: Hematocrit (blood only) 34.6 % (37.0-47.0); Hemoglobin 11.7 g/dl (12.0-16.0)
[2024-01-18 07:12] VITALS: BP 102/65; PULSE 84; TEMP 97.7; O2SAT 98
--- NOTE | 2024-01-18 08:21 | Obstetrical Progress Note ---
Date of Service January 18, 2024 Assessment & Plan Admission and Anticipated Discharge Date Admission Date: January 16, 2024 OB Progress Note abdomen soft and non tender ambulating well no calf tenderness vaginal bleeding scant hgb 11.7 Results & Data Vital Signs (Past 12 Hours) Vital Signs Temp Pulse Resp BP Pulse Ox O2 Del Method 01/18/24 07:09 36.5 C 84 16 102/65 98 Room Air 01/17/24 22:56 36.7 C 88 16 104/69 97 Room Air
--- NOTE | 2024-01-19 14:34 | Coding Query ---
CODING QUERY To promote full compliance with coding requirements relating to patient care, provider participation is requested in all cases of pre press operator uncertainty. Please assist us with the question(s) below: Coding Question(s): Delivery Summary states "Due to suspected macrosomia right mediolateral episiotomy was opened just before the delivery of the head. The vagina and perineum were checked and found to have Rt LM episiotomy which was second degree laceration." Is the repair the episiotomy or is there also a 2nd degree tear of the perineum? Physician's Response(s): It was repair of episiotomy. (It means episiotomy was only second degree, has not extended to third degree which sometimes happens during larger babies.) Thank you Elisa Santoyo Principal Diagnosis: "that condition established after study, to be chiefly responsible for occasioning the admission of the patient to the hospital for care." Co-Existing Principal Diagnosis: "when two or more diagnoses equally meet the criteria for principal diagnosis as determined by the circumstances of admission, diagnostic work up, and/or therapy provided, and the Alphabetic Index, Tabular List, or another coding guideline does not provide sequencing direction, any one of the diagnoses may be sequenced first." "When the physician has documented what appears to be a current diagnosis in the body of the record, but has not included the diagnosis in the final diagnostic statement, the physician should be asked whether the diagnosis should be added." (Source [facility]oding [facility] 2 QTR90. p3-4) [facility]
== END 2024-01-18 11:20 | disposition home or self-care (01) | DRG 807 ==
LOC: 4S1 03:45 → 4E2 17:42